=== PATIENT | male | born 1965 | race Caucasian/White ===

== ENCOUNTER 2016-11-20 08:27 | Emergency (ER) | payer BC ==
[~2016-11-20] VITALS: Ht 175.3 cm; Wt 106.6 kg
[~2016-11-20 08:27] MED LIST: HYDR-757 PO
[2016-11-20] MEDS ORDERED: TRAM50TA2 (08:44)
[2016-11-20] MEDS ORDERED: PREG75CA (08:44)
[2016-11-20] MEDS ORDERED: LIRA0.6P3 (08:44)
[2016-11-20] MEDS ORDERED: ATOR40TA70 (08:44)
[2016-11-20 09:03] LABS: BASOPHILS # (AUTO) 0.1 10^3/uL (0.0-0.1); BASOPHILS % (AUTO) 1 % (0-10); EOSINOPHILS # (AUTO) 0.3 10^3/uL (0.0-0.3); EOSINOPHILS % (AUTO) 2 % (0-10); LYMPHOCYTES # (AUTO) 3.1 X 10^3 (1.0-4.0); LYMPHOCYTES % (AUTO) 27 % (12-44); MEAN CORPUSCULAR HEMOGLOBIN 30 PG (25-34); MEAN CORPUSCULAR HGB CONC 35 G/DL (32-36); MEAN CORPUSCULAR VOLUME 88 FL (80-99); MEAN PLATELET VOLUME 10.4 FL (7.4-10.4); MONOCYTES # (AUTO) 0.8 X 10^3 (0.0-1.0); MONOCYTES % (AUTO) 7 % (0-12); NEUTROPHILS # (AUTO) 7.4 X 10^3 (1.8-7.8); NEUTROPHILS % (AUTO) 64 % (42-75); PLATELET COUNT 278 10^3/uL (130-400); RED BLOOD COUNT 4.56 10^6/uL (4.35-5.85); RED CELL DISTRIBUTION WIDTH 11.9 % (10.0-14.5); WHITE BLOOD COUNT 11.6 10^3/uL (4.3-11.0)
[2016-11-20 09:04] LABS: BILIRUBIN,URINE NEGATIVE (NEGATIVE); KETONES,URINE NEGATIVE (NEGATIVE); LEUKOCYTE ESTERASE ,URINE NEGATIVE (NEGATIVE); NITRITE,URINE NEGATIVE (NEGATIVE); PH,URINE 5 (5-9); PROTEIN,URINE 2+ (NEGATIVE); UROBILINOGEN,URINE NORMAL (NORMAL)
[2016-11-20 09:21] LABS: ALANINE AMINOTRANSFERASE 22 U/L (0-55); ALBUMIN 3.8 G/DL (3.2-4.5); ANION GAP 11 MMOL/L (5-14); ASPARTATE AMINO TRANSFERASE 13 U/L (5-34); BILIRUBIN,TOTAL 0.3 MG/DL (0.1-1.0); BLOOD UREA NITROGEN 13 MG/DL (7-18); BUN/CREATININE RATIO 16; CALCIUM 9.2 MG/DL (8.5-10.1); CARBON DIOXIDE 23 MMOL/L (21-32); CHLORIDE 100 MMOL/L (98-107); CREATININE SERUM 0.82 MG/DL (0.60-1.30); GFR ESTIMATED > 60; GLUCOSE 233 MG/DL (70-105); POTASSIUM 4.4 MMOL/L (3.6-5.0); SODIUM 134 MMOL/L (135-145); TOTAL PROTEIN 6.9 G/DL (6.4-8.2)
--- NOTE | 2016-11-20 10:22 | Diagnostic Imaging Report ---
INDICATION: Abdominal pain. KUB obtained at 10:22 a.m. The abdominal bowel gas pattern is unremarkable. There is no sign of obstruction or ileus. There are multiple pelvic calcifications which may be phleboliths although stones are difficult to exclude. There is intramedullary mio and screw in the right hip with osteophyte formation of the adjacent iliac bone. IMPRESSION: Unremarkable bowel gas pattern. No sign of obstruction or ileus. There are multiple pelvic calcifications which could be phleboliths or stones. Dictated by: Dictated on workstation # [id number]
--- NOTE | 2016-11-20 10:54 | ED General ---
General Chief Complaint: General Problems/Pain Stated Complaint: PELVIC PAIN Nursing Triage Note: AMBULATED TO ROOM 06 WITH COMPLAINTS OF RIGHT LOWER BACK PAIN THAT RADIATES TO RLQ FOR 6 MONTHS. STATES HE HAS A DISPLACED JOSE IN HIP AND LEG AREA THAT IS NON SURGICAL. PT HAS TRAMADOL BUT DID NOT TAKE IT TODAY. Nursing Sepsis Screen: No Definite Risk Source of Information: Patient Exam Limitations: No Limitations History of Present Illness Time Seen by Provider: 09:25 Initial Comments The patient is a 51-year-old white male who complains of right hip, low back, and now radiating across the pelvic area. This is been present for perhaps as long as 6 months. He takes tramadol for this although he did not do so today. He was here in September and had a CT scan which was negative. His hip pain is of long standing. He reports that he had a femur fracture with an intra- medullary jose. The trochanteric component for fixation has apparently slipped. He has been told that this is not remediable. Allergies and Home Medications Allergies Uncoded Allergies: THC (Allergy, Unknown, 11/20/16) Home Medications Atorvastatin Calcium 40 Mg Tablet #90 (Reported) Liraglutide 0.6 Mg/0.1 Ml Pen.injctr #9 (Reported) Pregabalin 75 Mg Capsule #120 (Reported) Tramadol HCl 50 Mg Tablet #112 (Reported) Constitutional: see HPI EENTM: no symptoms reported Respiratory: no symptoms reported Cardiovascular: no symptoms reported Gastrointestinal: constipation Genitourinary: no symptoms reported Musculoskeletal: see HPI Skin: no symptoms reported Psychiatric/Neurological: No Symptoms Reported Hematologic/Lymphatic: No Symptoms Reported Immunological/Allergic: no symptoms reported Past Xrsxzls-Awrncb-Umdwjz Hx Patient Social History Alcohol Use: Occasionally Uses Recreational Drug Use: No Smoking Status: Current Everyday Smoker Recent Foreign Travel: No Contact w/Someone Who Travel: No Recent Infectious Disease Expo: No Recent Hopitalizations: No Physical Abuse Screen: No Sexual Abuse: No Immunizations Up To Date Tetanus Booster (TDap): Less than 5yrs Surgeries HX Surgeries: Yes Surgeries: Orthopedic Respiratory Hx Respiratory Disorders: No Cardiovascular Hx Cardiac Disorders: Yes Cardiac Disorders: High Cholesterol Neurological Hx Neurological Disorders: No Genitourinary Hx Genitourinary Disorders: No Gastrointestinal Hx Gastrointestinal Disorders: No Musculoskeletal Hx Musculoskeletal Disorders: Yes Musculoskeletal Disorders: Chronic Back Pain Endocrine Hx Endocrine Disorders: Yes Endocrine Disorders: Diabetes, Non-Insulin dep HEENT HX ENT Disorders: No Cancer Hx Cancer: No Psychosocial Hx Psychiatric Problems: No Physical Exam Vital Signs Vital Sign - Last 12Hours 11/20/16 08:30 Temp 98.0 Pulse 90 Resp 18 B/P 161/90 Pulse Ox 97 Capillary Refill : Less Than 3 Seconds General Appearance: No Apparent Distress WD/WN Eyes: Bilateral Eye Normal Inspection HEENT: Normal ENT Inspection Neck: Full Range of Motion Normal Inspection Non Tender Supple Carotid Bruit Respiratory: Chest Non Tender Lungs Clear Normal Breath Sounds No Accessory Muscle Use No Respiratory Distress Cardiovascular: Regular Rate, Rhythm No Edema No Gallop No JVD No Murmur Normal Peripheral Pulses Gastrointestinal: Normal Bowel Sounds No Organomegaly No Pulsatile Mass Non Tender Soft Back: Normal Inspection No CVA Tenderness No Vertebral Tenderness Neurologic/Psychiatric: Alert Oriented x3 No Motor/Sensory Deficits Normal Mood/Affect Skin: Normal Color Warm/Dry Lymphatic: No Adenopathy Progress/Results/Core Measures Results/Orders Lab Results Laboratory Tests Test 11/20/16 08:50 11/20/16 08:55 Range/Units Alanine Aminotransferase (ALT/SGPT) 22 0-55 U/L Albumin 3.8 3.2-4.5 G/DL Alkaline Phosphatase 89 40-136 U/L Anion Gap 11 5-14 MMOL/L Aspartate Amino Transf (AST/SGOT) 13 5-34 U/L BUN/Creatinine Ratio 16 Basophils # (Auto) 0.1 0.0-0.1 10^3/uL Basophils (%) (Auto) 1 0-10 % Blood Urea Nitrogen 13 7-18 MG/DL Calcium Level 9.2 8.5-10.1 MG/DL Carbon Dioxide Level 23 21-32 MMOL/L Chloride Level 100 98-107 MMOL/L Creatinine 0.82 0.60-1.30 MG/DL Eosinophils # (Auto) 0.3 0.0-0.3 10^3/uL Eosinophils (%) (Auto) 2 0-10 % Estimat Glomerular Filtration Rate > 60 Glucose Level 233 H 70-105 MG/DL Hematocrit 40 40-54 % Hemoglobin 13.8 13.3-17.7 G/DL Lymphocytes # (Auto) 3.1 1.0-4.0 X 10^3 Lymphocytes (%) (Auto) 27 12-44 % Mean Corpuscular Hemoglobin 30 25-34 PG Mean Corpuscular Hemoglobin Concent 35 32-36 G/DL Mean Corpuscular Volume 88 80-99 FL Mean Platelet Volume 10.4 7.4-10.4 FL Monocytes # (Auto) 0.8 0.0-1.0 X 10^3 Monocytes (%) (Auto) 7 0-12 % Neutrophils # (Auto) 7.4 1.8-7.8 X 10^3 Neutrophils (%) (Auto) 64 42-75 % Platelet Count 278 130-400 10^3/uL Potassium Level 4.4 3.6-5.0 MMOL/L Red Blood Count 4.56 4.35-5.85 10^6/uL Red Cell Distribution Width 11.9 10.0-14.5 % Sodium Level 134 L 135-145 MMOL/L Total Bilirubin 0.3 0.1-1.0 MG/DL Total Protein 6.9 6.4-8.2 G/DL White Blood Count 11.6 H 4.3-11.0 10^3/uL Urine Bacteria NEGATIVE /HPF Urine Bilirubin NEGATIVE NEGATIVE Urine Casts NONE /LPF Urine Clarity CLEAR Urine Color YELLOW Urine Crystals NONE /LPF Urine Culture Indicated NO Urine Glucose (UA) 4+ H NEGATIVE Urine Ketones NEGATIVE NEGATIVE Urine Leukocyte Esterase NEGATIVE NEGATIVE Urine Mucus NEGATIVE /LPF Urine Nitrite NEGATIVE NEGATIVE Urine Protein 2+ H NEGATIVE Urine RBC NONE /HPF Urine RBC (Auto) NEGATIVE NEGATIVE Urine Specific [place] 1.015 L 1.016-1.022 Urine Squamous Epithelial Cells NONE /HPF Urine Urobilinogen NORMAL NORMAL MG/DL Urine WBC NONE /HPF Urine pH 5 5-9 My Orders Orders-RACIEL EDGAR MD Cbc With Automated Diff (11/20/16 08:40) Comprehensive Metabolic Panel (11/20/16 08:40) Ua Culture If Indicated (11/20/16 08:40) Abdomen/Kub 1view (11/20/16 09:59) Vital Signs/I&O Vital Sign - Last 12Hours 11/20/16 08:30 Temp 98.0 Pulse 90 Resp 18 B/P 161/90 Pulse Ox 97 Blood Pressure Mean: 113 Departure Impression Impression: Primary Impression: Right groin pain Disposition: 01 HOME, SELF-CARE Condition: Stable/Unchanged Departure-Patient Inst. Decision time for Depature: 11:11 Referrals: [facility] (PCP/Family) Primary Care Physician Patient Instructions: CHRONIC PAIN Add. Discharge Instructions: All discharge instructions reviewed with patient and/or family. Voiced understanding. Continue tramadol as prescribed MiraLAX 17 g daily or every other day for bowel movements See your provider to consider alternatives including the possibility of an outpatient pain consult. RACIEL EDGAR MD Nov 20, 2016 10:54
[2016-11-20 11:19] VITALS: BP 154/89
== END 2016-11-20 11:19 | disposition home or self-care (01) ==
LOC: EDUNIT# 08:27 → ER 08:29
DX: R10.31 Right lower quadrant pain (principal); M25.551 Pain in right hip; G89.29 Other chronic pain; E11.9 Type 2 diabetes mellitus without complications; F17.210 Nicotine dependence, cigarettes, uncomplicated; Z79.84 Long term (current) use of oral hypoglycemic drugs
CPT/HCPCS: 36415; 74000; 80053; 81000; 85025

== ENCOUNTER 2018-11-21 16:14 | Emergency (ER) | payer BC ==
[~2018-11-21] VITALS: Ht 177.8 cm; Wt 104.3 kg
[~2018-11-21 16:14] MED LIST changes: +ATOR40TA70; +HYDR-4226 PO; -HYDR-757 PO; +LIRA0.6P3; +PREG75CA; +TRAM50TA2
--- NOTE | 2018-11-21 17:21 | ED Integumentary General ---
General Chief Complaint: Skin/Wound Problems Stated Complaint: DIABETIC/R LEG INFECTION Nursing Triage Note: Ambulatory to rm 5. Pt c/o wound and redness to R knee. Pt reports tripped in a flower bed and falling on knee, and then crawling under a house four days ago. Pt reports the next morning the knee was red and sore. Pt c/o lymph node swelling in the L groin. Pt's R knee has a scab and redness to the surrounding area. Pt reports pain when walking on leg. Source: patient Exam Limitations: no limitations History of Present Illness Date Seen by Provider: Nov 21, 2018 Time Seen by Provider: 17:19 Initial Comments To ER with reports of a four-day history of a wound to the right anterior knee. He states that he fell into a flower bed landing on the knee. He was then crawling around beneath the house 4 days ago. The next morning he awakened with redness and swelling to the knee. He denies fevers or chills. He is diabetic state that he is very bad about checking his blood sugars. Timing/Duration: constant Severity: moderate Location: extremities Allergies and Home Medications Allergies Uncoded Allergies: THC (Allergy, Unknown, 11/20/16) Patient Home Medication List Home Medication List Reviewed: Yes Review of Systems Review of Systems Constitutional: see HPI EENTM: see HPI Respiratory: no symptoms reported Cardiovascular: no symptoms reported Genitourinary: no symptoms reported Musculoskeletal: no symptoms reported Skin: see HPI Psychiatric/Neurological: No Symptoms Reported Endocrine: No Symptoms Reported Hematologic/Lymphatic: No Symptoms Reported Past Yswyvuk-Bfjedj-Rwnfhd Hx Patient Social History Alcohol Use: Occasionally Uses Number of Drinks Today: AA Alcohol Beverage of Choice: Beer Recreational Drug Use: No Smoking Status: Current Someday Smoker Type Used: Cigarettes Recent Foreign Travel: No Contact w/Someone Who Travel: No Recent Infectious Disease Expo: No Recent Hopitalizations: No Physical Abuse: No Sexual Abuse: No Immunizations Up To Date Tetanus Booster (TDap): Less than 5yrs Past Medical History Surgeries: Yes Orthopedic Respiratory: No Cardiac: Yes High Cholesterol Neurological: No Gastrointestinal: No Musculoskeletal: Yes Chronic Back Pain Endocrine: Yes Diabetes, Non-Insulin dep Cancer: No Psychosocial: No Physical Exam Vital Signs Vital Signs - First Documented 11/21/18 16:40 Temp 97.8 Pulse 86 Resp 15 B/P (MAP) 133/113 (120) Pulse Ox 98 O2 Delivery Room Air Capillary Refill : Less Than 3 Seconds General Appearance: WD/WN, no apparent distress HEENT: PERRL/EOMI, normal ENT inspection Neck: non-tender Respiratory: no respiratory distress, no accessory muscle use Neurologic/Psychiatric: alert, normal mood/affect, oriented x 3 Skin: normal color, warm/dry, other (7 cm of erythema to the right anterior knee with a small pustule in the center. This was unroofed with a blunt needle, culture collected and sent to lab. No lymphangitis. There is some very tender, palpable right inguinal lymphadenopathy.) Progress/Results/Core Measures Results/Orders Lab Results Laboratory Tests Test 11/21/18 16:50 11/21/18 18:44 11/21/18 19:44 Range/Units White Blood Count 14.7 H 4.3-11.0 10^3/uL Red Blood Count 4.98 4.35-5.85 10^6/uL Hemoglobin 14.4 13.3-17.7 G/DL Hematocrit 42 40-54 % Mean Corpuscular Volume 84 80-99 FL Mean Corpuscular Hemoglobin 29 25-34 PG Mean Corpuscular Hemoglobin Concent 34 32-36 G/DL Red Cell Distribution Width 11.9 10.0-14.5 % Platelet Count 348 130-400 10^3/uL Mean Platelet Volume 10.8 H 7.4-10.4 FL Neutrophils (%) (Auto) 82 H 42-75 % Lymphocytes (%) (Auto) 12 12-44 % Monocytes (%) (Auto) 6 0-12 % Eosinophils (%) (Auto) 1 0-10 % Basophils (%) (Auto) 0 0-10 % Neutrophils # (Auto) 12.0 H 1.8-7.8 X 10^3 Lymphocytes # (Auto) 1.7 1.0-4.0 X 10^3 Monocytes # (Auto) 0.9 0.0-1.0 X 10^3 Eosinophils # (Auto) 0.1 0.0-0.3 10^3/uL Basophils # (Auto) 0.1 0.0-0.1 10^3/uL Neutrophils % (Manual) 82 % Lymphocytes % (Manual) 8 % Monocytes % (Manual) 7 % Basophils % (Manual) 3 % Blood Morphology Comment NORMAL Sodium Level 127 L 135-145 MMOL/L Potassium Level 4.7 3.6-5.0 MMOL/L Chloride Level 92 L 98-107 MMOL/L Carbon Dioxide Level 22 21-32 MMOL/L Anion Gap 13 5-14 MMOL/L Blood Urea Nitrogen 15 7-18 MG/DL Creatinine 1.12 0.60-1.30 MG/DL Estimat Glomerular Filtration Rate > 60 BUN/Creatinine Ratio 13 Glucose Level 682 *H 70-105 MG/DL Calcium Level 9.8 8.5-10.1 MG/DL Corrected Calcium 9.9 8.5-10.1 MG/DL Total Bilirubin 0.3 0.1-1.0 MG/DL Aspartate Amino Transf (AST/SGOT) 10 5-34 U/L Alanine Aminotransferase (ALT/SGPT) 14 0-55 U/L Alkaline Phosphatase 140 H 40-136 U/L Total Protein 7.8 6.4-8.2 GM/DL Albumin 3.9 3.2-4.5 GM/DL Glucometer 489 *H 340 H 70-110 MG/DL My Orders Orders - TROY FORREST APRN Cbc With Automated Diff (11/21/18 17:17) Comprehensive Metabolic Panel (11/21/18 17:17) Iv Heplock-Insert (Order) (11/21/18 17:17) Wound Culture (11/21/18 17:17) Ketorolac Injection (Toradol Injection) (11/21/18 17:30) Ceftriaxone For Iv Use (Rocephin For I (11/21/18 17:30) Sulfamethoxazole/Trimet Ds Tab (Bactrim (11/21/18 17:30) Lactated Ringers (Lr 1000 Ml Iv Solution (11/21/18 17:30) Manual Differential (11/21/18 16:50) Ns Iv 1000 Ml (Sodium Chloride 0.9%) (11/21/18 17:45) Insulin (Regular) Human (Humulin R (Per (11/21/18 17:45) Insulin Determir (Per Unit) (Levemir (Pe (11/21/18 18:00) Accucheck Stat ONCE (11/21/18 18:35) Ns Iv 1000 Ml (Sodium Chloride 0.9%) (11/21/18 19:00) Insulin (Regular) Human (Humulin R (Per (11/21/18 21:00) Accucheck Stat ONCE (11/21/18 19:33) Accucheck Stat ONCE (11/21/18 20:15) Medications Given in ED Current Medications Medications Dose Ordered Sig/Claudia Route Start Time Stop Time Status Last Admin Dose Admin Ceftriaxone Sodium 1000 mg/ Sodium Chloride 50 ml @ 100 mls/hr ONCE ONCE IV 11/21/18 17:30 11/21/18 17:59 DC 11/21/18 17:46 100 MLS/HR Insulin Detemir 10 unit ONCE ONCE SQ 11/21/18 18:00 11/21/18 18:01 DC 11/21/18 18:00 10 UNIT Insulin Human Regular 10 unit ONCE ONCE IV 11/21/18 17:45 11/21/18 17:46 DC 11/21/18 18:00 10 UNIT Ketorolac Tromethamine 30 mg ONCE ONCE IVP 11/21/18 17:30 11/21/18 17:31 DC 11/21/18 17:47 30 MG Trimethoprim/ Sulfamethoxazole 2 ea ONCE ONCE PO 11/21/18 17:30 11/21/18 17:31 DC 11/21/18 17:47 2 EA Vital Signs/I&O 11/21/18 16:40 Temp 97.8 Pulse 86 Resp 15 B/P (MAP) 133/113 (120) Pulse Ox 98 O2 Delivery Room Air Blood Pressure Mean: 120 Departure Impression Primary Impression: Cellulitis Qualified Codes: L03.115 - Cellulitis of right lower limb Additional Impression: Hyperglycemia Disposition: 01 HOME, SELF-CARE Condition: Stable Departure-Patient Inst. Decision time for Depature: 20:31 Referrals: [facility]/ (PCP) Primary Care Physician LUIS ALBERTO MARIE (Family) Primary Care Physician Patient Instructions: Cellulitis (Skin Infection), Adult (DC) Add. Discharge Instructions: 1. Take antibiotics as directed starting tomorrow. Return to ER for any concerns. Is very important that you keep better control of your blood sugars checking them at least 3 times a day. Call your regular doctor tomorrow for follow-up appointment this week. All discharge instructions reviewed with patient and/or family. Voiced understanding. Scripts Cephalexin (Keflex) 500 Mg Capsule 500 MG PO TID, #21 CAP Prov: TROY FORREST APRN 11/21/18 Sulfamethoxazole/Trimethoprim (Bactrim Ds Tablet) 1 Each Tablet 1 EACH PO BID, #14 TAB Prov: TROY FORREST APRN 11/21/18 TROY FORREST APRN Nov 21, 2018 17:21
[2018-11-21 17:25] LABS: BASOPHILS # (AUTO) 0.1 10^3/uL (0.0-0.1); BASOPHILS % (AUTO) 0 % (0-10); EOSINOPHILS # (AUTO) 0.1 10^3/uL (0.0-0.3); EOSINOPHILS % (AUTO) 1 % (0-10); HEMATOCRIT 42 % (40-54); HEMOGLOBIN 14.4 G/DL (13.3-17.7); LYMPHOCYTES # (AUTO) 1.7 X 10^3 (1.0-4.0); LYMPHOCYTES % (AUTO) 12 % (12-44); MEAN CORPUSCULAR HEMOGLOBIN 29 PG (25-34); MEAN CORPUSCULAR HGB CONC 34 G/DL (32-36); MEAN CORPUSCULAR VOLUME 84 FL (80-99); MEAN PLATELET VOLUME 10.8 FL (7.4-10.4); MONOCYTES # (AUTO) 0.9 X 10^3 (0.0-1.0); MONOCYTES % (AUTO) 6 % (0-12); NEUTROPHILS % (AUTO) 82 % (42-75); PLATELET COUNT 348 10^3/uL (130-400); RED BLOOD COUNT 4.98 10^6/uL (4.35-5.85); RED CELL DISTRIBUTION WIDTH 11.9 % (10.0-14.5); WHITE BLOOD COUNT 14.7 10^3/uL (4.3-11.0)
[2018-11-21] MEDS ORDERED: KETOROLAC 30 MG/ML VIAL IVP ONE (17:30)
[2018-11-21] MEDS ORDERED: TRIM/SULFAMETH 160/800 (SEPTRA DS) TAB PO ONE (17:30)
[2018-11-21] MEDS ORDERED: LACTATED RINGERS 1,000 ML IV SCH (17:30)
[2018-11-21] MEDS ORDERED: cefTRIAXone FOR IV USE 1,000 MG in NS (IVPB) 50 ML IV ONE (17:30)
[2018-11-21 17:36] LABS: ALANINE AMINOTRANSFERASE 14 U/L (0-55); ALBUMIN 3.9 GM/DL (3.2-4.5); ALKALINE PHOSPHATASE 140 U/L (40-136); BILIRUBIN,TOTAL 0.3 MG/DL (0.1-1.0); BUN/CREATININE RATIO 13; CALCIUM 9.8 MG/DL (8.5-10.1); CARBON DIOXIDE 22 MMOL/L (21-32); CHLORIDE 92 MMOL/L (98-107); CREATININE SERUM 1.12 MG/DL (0.60-1.30); GFR ESTIMATED > 60; POTASSIUM 4.7 MMOL/L (3.6-5.0); SODIUM 127 MMOL/L (135-145); TOTAL PROTEIN 7.8 GM/DL (6.4-8.2)
[2018-11-21 17:39] LABS: GLUCOSE 682 MG/DL (70-105)
[2018-11-21] MEDS ORDERED: inSUlin (REGULAR) HUMAN 1 UNIT/0.01 ML (CHARGE PER UNIT) IV ONE (17:45)
[2018-11-21] MEDS ORDERED: NS IV 1000 ML 1,000 ML IV SCH ×2 (17:45→19:00)
[2018-11-21 17:46] LABS: BASOPHILS % (MANUAL) 3 %; LYMPHOCYTES % (MANUAL) 8 %; MONOCYTES % (MANUAL) 7 %; NEUTROPHILS % (MANUAL) 82 %
[2018-11-21 17:47] LABS: RBC MORPH NORMAL
[2018-11-21] MEDS ORDERED: inSUlin DETERMIR 1 UNIT/0.01 ML (LEVEMIR) CHARGE PER UNIT SQ ONE (18:00)
[2018-11-21] MEDS ORDERED: CEPH-507 PO (20:33)
[2018-11-21] MEDS ORDERED: SULF1TAB35 PO (20:33)
[2018-11-21 20:38] VITALS: BP 152/86
[2018-11-21] MEDS ORDERED: inSUlin (REGULAR) HUMAN 1 UNIT/0.01 ML (CHARGE PER UNIT) IV SCH (21:00)
== END 2018-11-21 20:38 | disposition home or self-care (01) ==
LOC: EDUNIT# 16:14 → ER 16:15
DX: L03.115 Cellulitis of right lower limb (principal); E11.65 Type 2 diabetes mellitus with hyperglycemia; F12.10 Cannabis abuse, uncomplicated; F17.210 Nicotine dependence, cigarettes, uncomplicated; E78.00 Pure hypercholesterolemia, unspecified; Z98.890 Other specified postprocedural states
CPT/HCPCS: 36415; 80053; 82962; 85007; 85027; 87070; 87077; 87186; 87205

== ENCOUNTER 2020-04-07 22:41 | Emergency (ER) | payer SELFPAY ==
[~2020-04-07] VITALS: Ht 175 cm; Wt 81.0 kg
[~2020-04-07 22:41] MED LIST changes: +CEPH-507 PO; +SULF1TAB35 PO; -TRAM50TA2; +TRM50T
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
--- OUTSIDE RECORDS SUMMARY | 2020-04-07 22:48 | XMS REPORT ---
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 45761402109437706 Problem Type 2 diabetes mellitus wit h complication, without long-term current use of insulin E11.8 Active 51401860 Problem Neuropathy G62.9 Active 783427118 Problem Hypertriglyceridemia E78.1 Active 088430774 Problem Right hip pain M25.551 Active 45858 [id number] ALLERGIES No Information ENCOUNTERS Encounter Location Date Diagnosis [place] [address] [place] [id number] [address] [place] [address] Dec, Right hip pain M25.551 [facility] [address] [facility] [id number] [address] [place] [address] Nov, [facility] [address] [facility] [id number] [address] [place] [address] Nov, Right hip pain M25.551 [facility] [address] [place] [id number] [address] [place] [address] Oct, Right hip pain M25.551 [facility] [address] [id number] [address] [place] [address] Sep, Right hip pain M25.551 and N europathy G62.9 [facility] [address] [facility] [id number] [address] [place] [address] Aug, Right hip pain M25.551 [facility] [address] [facility] [id number] [address] [place] [address] 24 Jul, 2018 Right hip pain M25.551 [facility] [address] [id number] [address] [place] [address] Jul, Type 2 diabetes mellitus wit h complication, without long-term current use of insulin E11.8 ; Right hip pain M25.551 and Neuropathy G62.9 [facility] [address] [id number] [address] [place] [address] Jun, Right hip pain M25.551 [facility] [address] [id number] [address] [place] [address] May, Right hip pain M25.551 [facility] [address] [id number] [address] [place] [address] May, [facility] [address] [id number] [address] [place] [address] May, Hypertriglyceridemia E78.1 [facility] [address] [id number] [address] [place] [address] Apr, Right hip pain M25.551 [facility] [address] [id number] [address] [place] [address] Apr, Right hip pain M25.551 and N europathy G62.9 [facility] [address] [id number] [address] [place] [address] March, Right hip pain M25.551 and N europathy G62.9 [facility] [address] [id number] [address] [place] [address] Feb, Seasonal allergic rhinitis, unspecified trigger J30.2 [facility] [address] [id number] [address] [place] [address] Feb, Neuropathy G62.9 [facility] [address] [facility] [id number] [address] [place] [address] Feb, Right hip pain M25.551 and N europathy G62.9 [facility] [address] [id number] [address] [place] [address] Feb, Hypertriglyceridemia E78.1 [facility] [address] [id number] [address] [place] [address] Jan, Right hip pain M25.551 and T ype 2 diabetes mellitus with complication, without long-term current use of insulin E11.8 [place] [address] [id number] [address] [place] [address] Jan, Neuropathy G62.9 [facility] [address] [id number] [address] [place] [address] Jan, Right hip pain M25.551 [place] [address] [facility] [id number] [address] [place] [address] Dec, Right hip pain M25.551 [place] [address] [id number] [address] [place] [address] Nov, Right hip pain M25.551 [facility] [address] [id number] [address] [place] [address] Oct, Right hip pain M25.551 [place] [address] [facility] [id number] [address] [place] [address] Sep, Right hip pain M25.551 [facility] [address] [facility] [id number] [address] [place] [address] Aug, Right hip pain M25.551 [facility] [address] [facility] [id number] [address] [place] [address] Aug, Type 2 diabetes mellitus wit h complication, without long-term current use of insulin E11.8 and Other chronic pain G89.29 [facility] [address] [id number] [address] [place] [address] Jul, Right hip pain M25.551 [facility] [address] [facility] [id number] [address] [place] [address] Jul, Right hip pain M25.551 [place] [address] [id number] [address] [place] [address] Jul, Right hip pain M25.551 and N europathy G62.9 [place] [address] [facility] [id number] [address] [place] [address] Jun, Right hip pain M25.551 [place] [address] [facility] [id number] [address] [place] [address] May, [place] [address] [facility] [id number] [address] [place] [address] May, Type 2 diabetes mellitus wit h complication, without long-term current use of insulin E11.8 and Right hip pain M25.551 [place] [address] [facility] [id number] [address] [place] [address] Apr, Type 2 diabetes mellitus wit h complication, without long-term current use of insulin E11.8 [place] [address] [facility] [id number] [address] [place] [address] Apr, Type 2 diabetes mellitus wit h complication, without long-term current use of insulin E11.8 ; Right hip pain M25.551 ; Neuropathy G62.9 and Hypertriglyceridemia E78.1 [place] [address] [place] [id number] [address] [place] [address] March, Right hip pain M25.551 and N europathy G62.9 [place] [address] [facility] [id number] [address] [place] [address] March, Right hip pain M25.551 and N europathy G62.9 [place] [address] [facility] [id number] [address] [place] [address] Feb, Right hip pain M25.551 [place] [address] [facility] [id number] [address] [place] [address] Jan, Hypertriglyceridemia E78.1 [place] [address] [place] [id number] [address] [place] [address] Jan, Right hip pain M25.551 [facility] [address] [id number] [address] [place] [address] Jan, Hypertriglyceridemia E78.1 ; Dysuria R30.0 ; RLQ abdominal pain R10.31 and Right hip pain M25.551 [facility] [address] [facility] [id number] [address] [place] [address] Dec, Right hip pain M25.551 [facility] [address] [id number] [address] [place] [address] Dec, Type 2 diabetes mellitus wit h complication, without long-term current use of insulin E11.8 ; Right hip pain M25.551 and Neuropathy G62.9 [place] [address] [place] [id number] [address] [place] [address] Nov, Right hip pain M25.551 [place] [address] [facility] [id number] [address] [place] [address] Nov, [facility] [address] [facility] [id number] [address] [place] [address] Oct, Right hip pain M25.551 [facility] [address] [facility] [id number] [address] [place] [address] Sep, [facility] [address] [facility] [id number] [address] [place] [address] Sep, Type 2 diabetes mellitus wit h complication, without long-term current use of insulin E11.8 and Right hip pain M25.551 [facility] [address] [facility] [id number] [address] [place] [address] Sep, Neuropathy G62.9 [facility] [address] [facility] [id number] [address] [place] [address] Sep, Hypertriglyceridemia E78.1 [place] [address] [facility] [id number] [address] [place] [address] Aug, Type 2 diabetes mellitus wit h complication, without long-term current use of insulin E11.8 [facility] [address] [id number] [address] [place] [address] Aug, Type 2 diabetes mellitus wit h complication, without long-term current use of insulin E11.8 ; Right hip pain M25.551 ; Neuropathy G62.9 ; Pain of left foot M79.672 and Pain in right foot M79.671 [facility] [address] [id number] [address] [place] [address] Aug, Type 2 diabetes mellitus wit h complication, without long-term current use of insulin E11.8 ; Neuropathy G62.9 ; Right hip pain M25.551 ; Pain of left foot M79.672 and Pain in right foot M79.671 [facility] [address] [id number] [address] [place] [address] Feb, [facility] [address] [id number] [address] [place] [address] Feb, [facility] [address] [id number] [address] [place] [address] March, [facility] [address] [id number] [address] [place] [address] Feb, [facility] [address] [id number] [address] [place] [address] Oct, [facility] [address] [id number] [address] [place] [address] Oct, [facility] [address] [id number] [address] [place] [address] Nov, [facility] [address] [id number] [address] [place] [address] Oct, [facility] [address] [id number] [address] [place] [address] Oct, [facility] [address] [id number] [address] [place] [address] Oct, [facility] [address] [facility] [id number] [address] [address] Oct, IMMUNIZATIONS No Known Immunizations SOCIAL HISTORY Never Assessed REASON FOR VISIT EMR-[facility] [place] PLAN OF CARE VITAL SIGNS MEDICATIONS Unknown [...]
--- OUTSIDE RECORDS SUMMARY | 2020-04-07 22:48 | XMS REPORT ---
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 88694851333301538 Problem Other chronic pain G89.29 Active 8 2832788 Problem Neuropathy G62.9 Active 720994293 Problem Type 2 diabetes mellitus wit h complication, without long-term current use of insulin E11.8 Active 74097936 Problem Right hip pain M25.551 Active 12093 [id number] Problem Hypertriglyceridemia E78.1 Active 147524540 ALLERGIES No Information ENCOUNTERS Encounter Location Date Diagnosis [place] [address] [id number] [place] [address] Jul, Type 2 diabetes mellitus wit h complication, without long-term current use of insulin E11.8 ; Right hip pain M25.551 and Neuropathy G62.9 [place] [address] [address] [facility] [id number] [address] [place] [address] Jun, Right hip pain M25.551 [facility] [address] [facility] [id number] [address] [place] [address] May, Right hip pain M25.551 [facility] [address] [facility] [id number] [address] [place] [address] May, [facility] [address] [facility] [id number] [address] [place] [phone] May, Hypertriglyceridemia E78.1 [facility] [address] [facility] [id number] [address] [place] [phone] Apr, Right hip pain M25.551 [facility] [address] [id number] [address] [place] [address] Apr, Right hip pain M25.551 and N europathy G62.9 [facility] [address] [id number] [address] [place] [address] March, Right hip pain M25.551 and N europathy G62.9 [facility] [address] [id number] [address] [place] [phone] Feb, Seasonal allergic rhinitis, unspecified trigger J30.2 [facility] [address] [facility] [id number] [address] [place] [phone] Feb, Neuropathy G62.9 [facility] [address] [facility] [id number] [address] [place] [phone] Feb, Right hip pain M25.551 and N europathy G62.9 [facility] [address] [facility] [id number] [address] [place] [address] Feb, Hypertriglyceridemia E78.1 [place] [address] [facility] [id number] [address] [place] [address] Jan, Right hip pain M25.551 and T ype 2 diabetes mellitus with complication, without long-term current use of insulin E11.8 [place] [address] [facility] [id number] [address] [place] [address] Jan, Neuropathy G62.9 [facility] [address] [facility] [id number] [address] [place] [address] Jan, Right hip pain M25.551 [facility] [address] [facility] [id number] [address] [place] [address] Dec, Right hip pain M25.551 [facility] [address] [facility] [id number] [address] [place] [address] Nov, Right hip pain M25.551 [facility] [address] [id number] [address] [place] [address] Oct, Right hip pain M25.551 [facility] [address] [id number] [address] [place] [address] Sep, Right hip pain M25.551 [facility] [address] [id number] [address] [place] [address] Aug, Right hip pain M25.551 [facility] [address] [id number] [address] [place] [phone] Aug, Type 2 diabetes mellitus wit h complication, without long-term current use of insulin E11.8 and Other chronic pain G89.29 [place] [address] [id number] [address] [place] [address] Jul, Right hip pain M25.551 [place] [address] [id number] [address] [place] [address] Jul, Right hip pain M25.551 [place] [address] [id number] [address] [place] [address] Jul, Right hip pain M25.551 and N europathy G62.9 [place] [address] [id number] [address] [place] [address] Jun, Right hip pain M25.551 [place] [address] [id number] [address] [place] [address] May, [place] [address] [id number] [address] [place] [address] May, Type 2 diabetes mellitus wit h complication, without long-term current use of insulin E11.8 and Right hip pain M25.551 [facility] [address] [id number] [address] [place] [address] Apr, Type 2 diabetes mellitus wit h complication, without long-term current use of insulin E11.8 [place] [address] [id number] [address] [place] [phone] 14 Apr, 2017 Type 2 diabetes mellitus wit h complication, without long-term current use of insulin E11.8 ; Right hip pain M25.551 ; Neuropathy G62.9 and Hypertriglyceridemia E78.1 [facility] [address] [id number] [address] [place] [address] March, Right hip pain M25.551 and N europathy G62.9 [place] [address] [id number] [address] [place] [address] March, Right hip pain M25.551 and N europathy G62.9 [place] [address] [id number] [address] [place] [address] Feb, Right hip pain M25.551 [place] [address] [facility] [id number] [address] [place] [address] Jan, Hypertriglyceridemia E78.1 [place] [address] [facility] [id number] [address] [place] [address] Jan, Right hip pain M25.551 [place] [address] [facility] [id number] [address] [place] [address] Jan, Hypertriglyceridemia E78.1 ; Dysuria R30.0 ; RLQ abdominal pain R10.31 and Right hip pain M25.551 [place] [address] [facility] [id number] [address] [place] [address] Dec, Right hip pain M25.551 [place] [address] [id number] [address] [place] [address] Dec, Type 2 diabetes mellitus wit h complication, without long-term current use of insulin E11.8 ; Right hip pain M25.551 and Neuropathy G62.9 [facility] [address] [id number] [address] [place] [address] Nov, Right hip pain M25.551 [place] [address] [facility] [id number] [address] [place] [address] Nov, [place] [address] [address] [place] [id number] [address] [place] [address] Oct, Right hip pain M25.551 [place] [address] [facility] [id number] [address] [place] [address] Sep, [place] [address] [place] [id number] [address] [place] [address] Sep, Type 2 diabetes mellitus wit h complication, without long-term current use of insulin E11.8 and Right hip pain M25.551 [place] [address] [address] [place] [id number] [address] [place] [address] Sep, Neuropathy G62.9 [place] [address] [place] [id number] [place] [address] Sep, Hypertriglyceridemia E78.1 [place] [address] [place] [id number] [place] [address] Aug, Type 2 diabetes mellitus wit h complication, without long-term current use of insulin E11.8 ; Right hip pain M25.551 ; Neuropathy G62.9 ; Pain of left foot M79.672 and Pain in right foot M79.671 [place] [address] [address] [place] [id number] [address] [place] [address] Aug, Type 2 diabetes mellitus wit h complication, without long-term current use of insulin E11.8 [place] [address] [place] [id number] [place] [address] Aug, Type 2 diabetes mellitus wit h complication, without long-term current use of insulin E11.8 ; Neuropathy G62.9 ; Right hip pain M25.551 ; Pain of left foot M79.672 and Pain in right foot M79.671 [place] [address] [address] [place] [id number] [address] [place] [address] Feb, [place] [address] [place] [id number] [place] [address] Feb, [facility] [address] [id number] [address] [place] [phone] March, [facility] [address] [id number] [address] [place] [phone] Feb, [facility] [address] [id number] [address] [place] [address] Oct, [facility] [address] [id number] [address] [place] [phone] Oct, [facility] [address] [id number] [address] [place] [address] Nov, [facility] [address] [id number] [address] [place] [address] Oct, [facility] [address] [id number] [address] [place] [address] Oct, [facility] [address] [id number] [address] [place] [phone] Oct, [facility] [address] [id number] [address] [place] [address] Oct, IMMUNIZATIONS No Known Immunizations SOCIAL HISTORY Never Assessed REASON FOR VISIT controlled med refill PLAN OF CARE VITAL SIGNS MEDICATIONS Unknown [...]
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
--- OUTSIDE RECORDS SUMMARY | 2020-04-07 22:48 | XMS REPORT ---
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 [id number] Problem Other chronic pain G89.29 Active 8 1114545 Problem Neuropathy G62.9 Active 026179891 Problem Type 2 diabetes mellitus wit h complication, without long-term current use of insulin E11.8 Active 46164184 Problem Right hip pain M25.551 Active 95355 [id number] Problem Hypertriglyceridemia E78.1 Active [id number] ALLERGIES No Information ENCOUNTERS Encounter Location Date Diagnosis [place] [id number] [facility] [id number] [address] [place] [id number] Jul, Right hip pain M25.551 [place] [address] [address] [facility] [id number] [address] [place] [id number] Jul, Type 2 diabetes mellitus wit h complication, without long-term current use of insulin E11.8 ; Right hip pain M25.551 and Neuropathy G62.9 [facility] [address] [facility] [id number] [address] [place] [id number] Jun, Right hip pain M25.551 [facility] [address] [facility] [id number] [address] [place] [id number] May, Right hip pain M25.551 [facility] [address] [facility] [id number] [address] [place] [phone] May, [facility] [address] [facility] [id number] [address] [place] [id number] May, Hypertriglyceridemia E78.1 [facility] [address] [id number] [address] [place] [id number] Apr, Right hip pain M25.551 [facility] [address] [facility] [id number] [address] [place] [id number] Apr, Right hip pain M25.551 and N europathy G62.9 [facility] [address] [id number] [address] [place] [id number] March, Right hip pain M25.551 and N europathy G62.9 [facility] [address] [id number] [address] [place] [id number] Feb, Seasonal allergic rhinitis, unspecified trigger J30.2 [facility] [address] [facility] [id number] [address] [place] [id number] Feb, Neuropathy G62.9 [facility] [address] [facility] [id number] [address] [place] [id number] Feb, Right hip pain M25.551 and N europathy G62.9 [facility] [address] [id number] [address] [place] [id number] Feb, Hypertriglyceridemia E78.1 [facility] [address] [facility] [id number] [address] [place] [id number] Jan, Right hip pain M25.551 and T ype 2 diabetes mellitus with complication, without long-term current use of insulin E11.8 [facility] [address] [id number] [address] [place] [id number] Jan, Neuropathy G62.9 [facility] [address] [facility] [id number] [address] [place] [id number] Jan, Right hip pain M25.551 [facility] [address] [facility] [id number] [address] [place] [id number] Dec, Right hip pain M25.551 [facility] [address] [id number] [address] [place] [id number] Nov, Right hip pain M25.551 [facility] [address] [facility] [id number] [address] [place] [id number] Oct, Right hip pain M25.551 [facility] [address] [facility] [id number] [address] [place] [id number] Sep, Right hip pain M25.551 [facility] [address] [facility] [id number] [address] [place] [id number] Aug, Right hip pain M25.551 [place] [address] [facility] [id number] [address] [place] [id number] Aug, Type 2 diabetes mellitus wit h complication, without long-term current use of insulin E11.8 and Other chronic pain G89.29 [place] [address] [place] [id number] [address] [place] [id number] Jul, Right hip pain M25.551 [place] [address] [id number] [address] [place] [phone] Jul, Right hip pain M25.551 [place] [address] [facility] [id number] [address] [place] [id number] Jul, Right hip pain M25.551 and N europathy G62.9 [place] [address] [address] [facility] [id number] [address] [place] [id number] Jun, Right hip pain M25.551 [place] [address] [id number] [address] [place] [id number] May, [facility] [address] [facility] [id number] [address] [place] [id number] May, Type 2 diabetes mellitus wit h complication, without long-term current use of insulin E11.8 and Right hip pain M25.551 [place] [address] [facility] [id number] [address] [place] [phone] Apr, Type 2 diabetes mellitus wit h complication, without long-term current use of insulin E11.8 [place] [address] [place] [id number] [place] [phone] Apr, Type 2 diabetes mellitus wit h complication, without long-term current use of insulin E11.8 ; Right hip pain M25.551 ; Neuropathy G62.9 and Hypertriglyceridemia E78.1 [place] [address] [place] [id number] [place] [phone] March, Right hip pain M25.551 and N europathy G62.9 [place] [address] [place] [id number] [place] [id number] March, Right hip pain M25.551 and N europathy G62.9 [place] [address] [place] [id number] [place] [phone] Feb, Right hip pain M25.551 [place] [address] [address] Jan, Hypertriglyceridemia E78.1 [place] [address] [address] Jan, Right hip pain M25.551 [place] [address] [place] [id number] [place] [phone] Jan, Hypertriglyceridemia E78.1 ; Dysuria R30.0 ; RLQ abdominal pain R10.31 and Right hip pain M25.551 [place] [address] [place] [id number] [address] [place] [address] Dec, Right hip pain M25.551 [place] [address] [address] [place] [id number] [place] [id number] Dec, Type 2 diabetes mellitus wit h complication, without long-term current use of insulin E11.8 ; Right hip pain M25.551 and Neuropathy G62.9 [place] [address] [place] [id number] [place] [id number] Nov, Right hip pain M25.551 [place] [address] [address] [facility] [id number] [address] [place] [id number] Nov, [place] [address] [address] [facility] [id number] [address] [place] [id number] Oct, Right hip pain M25.551 [place] [address] [address] [facility] [id number] [address] [place] [id number] Sep, [place] [address] [address] [facility] [id number] [address] [place] [id number] Sep, Type 2 diabetes mellitus wit h complication, without long-term current use of insulin E11.8 and Right hip pain M25.551 [place] [address] [place] [id number] [address] [place] [id number] Sep, Neuropathy G62.9 [place] [address] [place] [id number] [address] [place] [id number] Sep, Hypertriglyceridemia E78.1 [place] [address] [address] [place] [id number] [address] [place] [id number] Aug, Type 2 diabetes mellitus wit h complication, without long-term current use of insulin E11.8 ; Right hip pain M25.551 ; Neuropathy G62.9 ; Pain of left foot M79.672 and Pain in right foot M79.671 [place] [address] [place] [id number] [address] [place] [id number] Aug, Type 2 diabetes mellitus wit h complication, without long-term current use of insulin E11.8 [place] [address] [address] [facility] [id number] [address] [place] [id number] Aug, Type 2 diabetes mellitus wit h complication, without long-term current use of insulin E11.8 ; Neuropathy G62.9 ; Right hip pain M25.551 ; Pain of left foot M79.672 and Pain in right foot M79.671 [place] [address] [address] [place] [id number] [address] [place] [id number] 14 Feb, 2015 [facility] [address] [id number] [address] [place] [id number] Feb, [facility] [address] [id number] [address] [place] [phone] March, [facility] [address] [id number] [address] [place] [id number] Feb, [facility] [address] [id number] [address] [place] [id number] Oct, [facility] [address] [id number] [address] [place] [id number] Oct, [facility] [address] [id number] [address] [place] [phone] Nov, [facility] [address] [id number] [address] [place] [phone] Oct, [facility] [address] [id number] [address] [place] [id number] Oct, [facility] [address] [id number] [address] [place] [phone] Oct, [facility] [address] [id number] [address] [place] [phone] Oct, IMMUNIZATIONS No Known Immunizations SOCIAL HISTORY Never Assessed REASON FOR VISIT Controlled Med Refill 08/02/18 PLAN OF CARE VITAL SIGNS MEDICATIONS Medication Instructions Dosage Frequency Start Date End Date Duration S tatus Percocet 7.5-325 MG Orally 4 times a day 1 tablet 6h Jul, 28 days Active RESULTS No Results PROCEDURES [...]
--- OUTSIDE RECORDS SUMMARY | 2020-04-07 22:48 | XMS REPORT ---
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 [id number] Problem Other chronic pain G89.29 Active 8 4695011 Problem Neuropathy G62.9 Active 258859538 Problem Type 2 diabetes mellitus wit h complication, without long-term current use of insulin E11.8 Active 16562943 Problem Right hip pain M25.551 Active 12572 3076713606 Problem Hypertriglyceridemia E78.1 Active 624170300 ALLERGIES No Information ENCOUNTERS Encounter Location Date Diagnosis [place] [id number] [place] [id number] Jul, Type 2 diabetes mellitus wit h complication, without long-term current use of insulin E11.8 ; Right hip pain M25.551 and Neuropathy G62.9 [place] [address] [address] [facility] [id number] [address] [place] [phone] Jun, Right hip pain M25.551 [facility] [address] [facility] [id number] [address] [place] [id number] May, Right hip pain M25.551 [facility] [address] [facility] [id number] [address] [place] [id number] May, [facility] [address] [facility] [id number] [address] [place] [phone] May, Hypertriglyceridemia E78.1 [facility] [address] [facility] [id number] [address] [place] [id number] Apr, Right hip pain M25.551 [facility] [address] [id number] [address] [place] [id number] Apr, Right hip pain M25.551 and N europathy G62.9 [facility] [address] [id number] [address] [place] [phone] March, Right hip pain M25.551 and N europathy G62.9 [facility] [address] [id number] [address] [place] [phone] Feb, Seasonal allergic rhinitis, unspecified trigger J30.2 [facility] [address] [facility] [id number] [address] [place] [id number] Feb, Neuropathy G62.9 [facility] [address] [facility] [id number] [address] [place] [id number] Feb, Right hip pain M25.551 and N europathy G62.9 [facility] [address] [facility] [id number] [address] [place] [id number] Feb, Hypertriglyceridemia E78.1 [place] [address] [facility] [id number] [address] [place] [id number] Jan, Right hip pain M25.551 and T ype 2 diabetes mellitus with complication, without long-term current use of insulin E11.8 [place] [address] [facility] [id number] [address] [place] [phone] Jan, Neuropathy G62.9 [facility] [address] [facility] [id number] [address] [place] [phone] Jan, Right hip pain M25.551 [facility] [address] [facility] [id number] [address] [place] [id number] Dec, Right hip pain M25.551 [facility] [address] [facility] [id number] [address] [place] [id number] Nov, Right hip pain M25.551 [facility] [address] [id number] [address] [place] [id number] Oct, Right hip pain M25.551 [facility] [address] [id number] [address] [place] [phone] Sep, Right hip pain M25.551 [facility] [address] [id number] [address] [place] [id number] Aug, Right hip pain M25.551 [facility] [address] [id number] [address] [place] [id number] Aug, Type 2 diabetes mellitus wit h complication, without long-term current use of insulin E11.8 and Other chronic pain G89.29 [place] [address] [id number] [address] [place] [id number] Jul, Right hip pain M25.551 [place] [address] [id number] [address] [place] [id number] Jul, Right hip pain M25.551 [place] [address] [id number] [address] [place] [id number] Jul, Right hip pain M25.551 and N europathy G62.9 [place] [address] [id number] [address] [place] [id number] Jun, Right hip pain M25.551 [place] [address] [id number] [address] [place] [phone] May, [place] [address] [id number] [address] [place] [id number] May, Type 2 diabetes mellitus wit h complication, without long-term current use of insulin E11.8 and Right hip pain M25.551 [facility] [address] [id number] [address] [place] [id number] Apr, Type 2 diabetes mellitus wit h complication, without long-term current use of insulin E11.8 [place] [address] [id number] [address] [place] [id number] 14 Apr, 2017 Type 2 diabetes mellitus wit h complication, without long-term current use of insulin E11.8 ; Right hip pain M25.551 ; Neuropathy G62.9 and Hypertriglyceridemia E78.1 [facility] [address] [id number] [address] [place] [id number] March, Right hip pain M25.551 and N europathy G62.9 [place] [address] [id number] [address] [place] [phone] March, Right hip pain M25.551 and N europathy G62.9 [place] [address] [id number] [address] [place] [id number] Feb, Right hip pain M25.551 [place] [address] [facility] [id number] [address] [place] [phone] Jan, Hypertriglyceridemia E78.1 [place] [address] [facility] [id number] [address] [place] [phone] Jan, Right hip pain M25.551 [place] [address] [facility] [id number] [address] [place] [id number] Jan, Hypertriglyceridemia E78.1 ; Dysuria R30.0 ; RLQ abdominal pain R10.31 and Right hip pain M25.551 [place] [address] [facility] [id number] [address] [place] [phone] Dec, Right hip pain M25.551 [place] [address] [id number] [address] [place] [id number] Dec, Type 2 diabetes mellitus wit h complication, without long-term current use of insulin E11.8 ; Right hip pain M25.551 and Neuropathy G62.9 [facility] [address] [id number] [address] [place] [id number] Nov, Right hip pain M25.551 [place] [address] [facility] [id number] [address] [place] [id number] Nov, [place] [address] [place] [id number] [address] [place] [phone] Oct, Right hip pain M25.551 [place] [address] [facility] [id number] [address] [place] [id number] Sep, [place] [address] [place] [id number] [address] [place] [id number] Sep, Type 2 diabetes mellitus wit h complication, without long-term current use of insulin E11.8 and Right hip pain M25.551 [place] [address] [place] [id number] [address] [place] [id number] Sep, Neuropathy G62.9 [place] [address] [place] [id number] [place] [id number] Sep, Hypertriglyceridemia E78.1 [place] [address] [place] [id number] [place] [address] Aug, Type 2 diabetes mellitus wit h complication, without long-term current use of insulin E11.8 ; Right hip pain M25.551 ; Neuropathy G62.9 ; Pain of left foot M79.672 and Pain in right foot M79.671 [place] [address] [place] [id number] [address] [place] [id number] Aug, Type 2 diabetes mellitus wit h complication, without long-term current use of insulin E11.8 [place] [address] [place] [id number] [place] [address] Aug, Type 2 diabetes mellitus wit h complication, without long-term current use of insulin E11.8 ; Neuropathy G62.9 ; Right hip pain M25.551 ; Pain of left foot M79.672 and Pain in right foot M79.671 [place] [address] [place] [id number] [address] [place] [id number] Feb, [place] [address] [place] [id number] [place] [phone] Feb, [facility] [address] [id number] [address] [place] [phone] March, [facility] [address] [id number] [address] [place] [id number] Feb, [facility] [address] [id number] [address] [place] [id number] Oct, [facility] [address] [id number] [address] [place] [id number] Oct, [facility] [address] [id number] [address] [place] [phone] Nov, [facility] [address] [id number] [address] [place] [id number] Oct, [facility] [address] [id number] [address] [place] [id number] Oct, [facility] [address] [id number] [address] [place] [id number] Oct, [facility] [address] [id number] [address] [place] [phone] Oct, IMMUNIZATIONS No Known Immunizations SOCIAL HISTORY Never Assessed REASON FOR VISIT Controlled Med Refill 07/05/18 PLAN OF CARE VITAL SIGNS MEDICATIONS Medication Instructions Dosage Frequency Start Date End Date Duration S tatus Percocet 7.5-325 MG Orally 4 times a day 1 tablet 6h Jun, 28 days Active RESULTS No Results PROCEDURES [...]
--- OUTSIDE RECORDS SUMMARY | 2020-04-07 22:48 | XMS REPORT ---
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 Active 38630901124419954 Problem Other chronic pain G89.29 Active 8 1977382 Problem Neuropathy G62.9 Active 514212349 Problem Type 2 diabetes mellitus wit h complication, without long-term current use of insulin E11.8 Active 21781708 Problem Right hip pain M25.551 Active 62676 [id number] Problem Hypertriglyceridemia E78.1 Active [id number] ALLERGIES No Known Allergies ENCOUNTERS Encounter Location Date Diagnosis [facility] [address] [facility] [id number] [address] [place] [address] Jul, Right hip pain M25.551 [place] [address] [facility] [id number] [address] [place] [phone] Jul, Type 2 diabetes mellitus wit h complication, without long-term current use of insulin E11.8 ; Right hip pain M25.551 and Neuropathy G62.9 [facility] [address] [facility] [id number] [address] [place] [address] Jun, Right hip pain M25.551 [facility] [address] [facility] [id number] [address] [place] [phone] May, Right hip pain M25.551 [facility] [address] [facility] [id number] [address] [place] [address] May, [facility] [address] [facility] [id number] [address] [place] [address] May, Hypertriglyceridemia E78.1 [facility] [address] [id number] [address] [place] [address] Apr, Right hip pain M25.551 [facility] [address] [facility] [id number] [address] [place] [phone] Apr, Right hip pain M25.551 and N europathy G62.9 [facility] [address] [id number] [address] [place] [address] March, Right hip pain M25.551 and N europathy G62.9 [facility] [address] [id number] [address] [place] [phone] Feb, Seasonal allergic rhinitis, unspecified trigger J30.2 [facility] [address] [facility] [id number] [address] [place] [phone] Feb, Neuropathy G62.9 [facility] [address] [facility] [id number] [address] [place] [address] Feb, Right hip pain M25.551 and N europathy G62.9 [facility] [address] [facility] [id number] [address] [place] [phone] Feb, Hypertriglyceridemia E78.1 [place] [address] [facility] [id number] [address] [place] [address] Jan, Right hip pain M25.551 and T ype 2 diabetes mellitus with complication, without long-term current use of insulin E11.8 [facility] [address] [id number] [address] [place] [phone] Jan, Neuropathy G62.9 [facility] [address] [facility] [id number] [address] [place] [address] Jan, Right hip pain M25.551 [facility] [address] [facility] [id number] [address] [place] [address] Dec, Right hip pain M25.551 [facility] [address] [id number] [address] [place] [address] Nov, Right hip pain M25.551 [facility] [address] [id number] [address] [place] [id number] Oct, Right hip pain M25.551 [facility] [address] [facility] [id number] [address] [place] [phone] Sep, Right hip pain M25.551 [facility] [address] [facility] [id number] [address] [place] [id number] Aug, Right hip pain M25.551 [facility] [address] [id number] [address] [place] [phone] Aug, Type 2 diabetes mellitus wit h complication, without long-term current use of insulin E11.8 and Other chronic pain G89.29 [place] [address] [facility] [id number] [address] [place] [address] Jul, Right hip pain M25.551 [place] [address] [id number] [address] [place] [phone] Jul, Right hip pain M25.551 [place] [address] [facility] [id number] [address] [place] [address] Jul, Right hip pain M25.551 and N europathy G62.9 [place] [address] [facility] [id number] [address] [place] [id number] Jun, Right hip pain M25.551 [place] [address] [id number] [address] [place] [address] May, [facility] [address] [facility] [id number] [address] [place] [address] May, Type 2 diabetes mellitus wit h complication, without long-term current use of insulin E11.8 and Right hip pain M25.551 [place] [address] [facility] [id number] [address] [place] [address] Apr, Type 2 diabetes mellitus wit h complication, without long-term current use of insulin E11.8 [place] [address] [address] Apr, Type 2 diabetes mellitus wit h complication, without long-term current use of insulin E11.8 ; Right hip pain M25.551 ; Neuropathy G62.9 and Hypertriglyceridemia E78.1 [place] [address] [address] March, Right hip pain M25.551 and N europathy G62.9 [place] [address] [address] March, Right hip pain M25.551 and N europathy G62.9 [place] [address] [address] Feb, Right hip pain M25.551 [place] [address] [address] Jan, Hypertriglyceridemia E78.1 [place] [address] [address] Jan, Right hip pain M25.551 [place] [address] [address] Jan, Hypertriglyceridemia E78.1 ; Dysuria R30.0 ; RLQ abdominal pain R10.31 and Right hip pain M25.551 [place] [address] [address] Dec, Right hip pain M25.551 [place] [address] [address] Dec, Type 2 diabetes mellitus wit h complication, without long-term current use of insulin E11.8 ; Right hip pain M25.551 and Neuropathy G62.9 [place] [address] [address] Nov, Right hip pain M25.551 [place] [address] [facility] [id number] [address] [place] [phone] Nov, [place] [address] [facility] [id number] [address] [place] [address] Oct, Right hip pain M25.551 [place] [address] [place] [id number] [address] [place] [phone] Sep, [place] [address] [facility] [id number] [address] [place] [id number] Sep, Type 2 diabetes mellitus wit h complication, without long-term current use of insulin E11.8 and Right hip pain M25.551 [place] [address] [place] [id number] [address] [place] [phone] Sep, Neuropathy G62.9 [place] [address] [place] [id number] [place] [address] Sep, Hypertriglyceridemia E78.1 [place] [address] [place] [id number] [address] [place] [address] Aug, Type 2 diabetes mellitus wit h complication, without long-term current use of insulin E11.8 ; Right hip pain M25.551 ; Neuropathy G62.9 ; Pain of left foot M79.672 and Pain in right foot M79.671 [place] [address] [place] [id number] [address] [place] [address] Aug, Type 2 diabetes mellitus wit h complication, without long-term current use of insulin E11.8 [place] [address] [facility] [id number] [address] [place] [address] Aug, Type 2 diabetes mellitus wit h complication, without long-term current use of insulin E11.8 ; Neuropathy G62.9 ; Right hip pain M25.551 ; Pain of left foot M79.672 and Pain in right foot M79.671 [place] [address] [place] [id number] [address] [place] [id number] 14 Feb, 2015 [facility] [address] [id number] [address] [place] [phone] Feb, [facility] [address] [id number] [address] [place] [phone] March, [facility] [address] [id number] [address] [place] [phone] Feb, [facility] [address] [id number] [address] [place] [phone] Oct, [facility] [address] [id number] [address] [place] [phone] Oct, [facility] [address] [id number] [address] [place] [phone] Nov, [facility] [address] [id number] [address] [place] [phone] Oct, [facility] [address] [id number] [address] [place] [phone] Oct, [facility] [address] [id number] [address] [place] [phone] Oct, [facility] [address] [id number] [address] [place] [phone] Oct, IMMUNIZATIONS No Known Immunizations SOCIAL HISTORY Never Assessed REASON FOR VISIT pain in feet dennise miller PLAN OF CARE Activity Details Follow Up prn Reason: VITAL SIGNS Height 69.75 in 2018-07-13 Weight 222 lbs 2018-07-13 Temperature 97.9 degrees Fahrenheit 2018-07-13 Heart Rate 88 bpm 2018-07-13 Respiratory Rate 20 2018-07-13 BMI 32.08 kg/m2 2018-07-13 Blood pressure systolic 136 mmHg 2018-07-13 Blood pressure diastolic 80 mmHg 2018-07-13 MEDICATIONS Medication Instructions Dosage Frequency Start Date End Date Duration S neal GlipiZIDE ER 10 MG Orally Once a day in AM 1 tablet Aug, 90 days Active Blood Glucose Test - subcutaneously 2 times a day test blood sugar 12h Active Blood Glucose Monitor System w/Device subcutaneously 2 times a day test blood sugar 12h Active Pioglitazone HCl 45 MG Orally Once a day 1 tablet 24h Jan, 30 day(s) Not-Taking Zetia 10 mg Orally Once a day 1 tablet 24h 13 Jan, 2017 90 d ays Not-Taking Lisinopril 5 MG Orally Once a day 1 tablet 24h 23 Apr, 2017 Not-Taking Lipitor 80 MG Orally Once a day 1 tablet 24h 90 days Active MetFORMIN HCl ER 500 MG Orally 2 times a day 2 tablets 12h Aug, 016 90 Active Victoza 18 MG/3ML Subcutaneous Once a day 1.8 mg 24h Not-Taking Percocet 7.5-325 MG Orally 4 times a day 1 tablet 6h 25 Jun, 2018 28 days Active Lyrica 150 MG Orally 2 times a day 2 capsules 12h Aug, 28 days Active RESULTS Name Result Date Reference Range A1C (IN HOUSE) 2018-07-13 A1C IN HOUSE 8.4 4.3 - 5.6 % Previous A1c 11.6 Lot [id number] Exp date 01/2020 PROCEDURES Procedure Date Ordered Result Body Site GLYCATED HEMOGLOBIN TEST Jul 13, 2018 INSTRUCTIONS MEDICATIONS ADMINISTERED No Known Medications MEDICAL [...]
--- OUTSIDE RECORDS SUMMARY | 2020-04-07 22:48 | XMS REPORT ---
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 59484474676572905 Problem Other chronic pain G89.29 Active 8 8398741 Problem Neuropathy G62.9 Active 572224021 Problem Type 2 diabetes mellitus wit h complication, without long-term current use of insulin E11.8 Active 94725505 Problem Right hip pain M25.551 Active 34222 6260271649 Problem Hypertriglyceridemia E78.1 Active 012236687 ALLERGIES No Information ENCOUNTERS Encounter Location Date Diagnosis [place] [id number] [place] [address] Jul, Type 2 diabetes mellitus wit h complication, without long-term current use of insulin E11.8 ; Right hip pain M25.551 and Neuropathy G62.9 [place] [address] [facility] [id number] [address] [place] [address] Jun, Right hip pain M25.551 [facility] [address] [facility] [id number] [address] [place] [address] May, Right hip pain M25.551 [facility] [address] [facility] [id number] [address] [place] [address] May, [facility] [address] [facility] [id number] [address] [place] [address] May, Hypertriglyceridemia E78.1 [facility] [address] [facility] [id number] [address] [place] [address] Apr, Right hip pain M25.551 [facility] [address] [id number] [address] [place] [address] Apr, Right hip pain M25.551 and N europathy G62.9 [facility] [address] [id number] [address] [place] [address] March, Right hip pain M25.551 and N europathy G62.9 [facility] [address] [id number] [address] [place] [address] Feb, Seasonal allergic rhinitis, unspecified trigger J30.2 [facility] [address] [facility] [id number] [address] [place] [phone] Feb, Neuropathy G62.9 [facility] [address] [facility] [id number] [address] [place] [address] Feb, Right hip pain M25.551 and N europathy G62.9 [facility] [address] [facility] [id number] [address] [place] [phone] Feb, Hypertriglyceridemia E78.1 [place] [address] [facility] [id number] [address] [place] [address] Jan, Right hip pain M25.551 and T ype 2 diabetes mellitus with complication, without long-term current use of insulin E11.8 [place] [address] [facility] [id number] [address] [place] [address] Jan, Neuropathy G62.9 [facility] [address] [facility] [id number] [address] [place] [address] Jan, Right hip pain M25.551 [facility] [address] [facility] [id number] [address] [place] [address] Dec, Right hip pain M25.551 [facility] [address] [facility] [id number] [address] [place] [address] Nov, Right hip pain M25.551 [facility] [address] [id number] [address] [place] [address] Oct, Right hip pain M25.551 [facility] [address] [id number] [address] [place] [address] Sep, Right hip pain M25.551 [facility] [address] [id number] [address] [place] [address] Aug, Right hip pain M25.551 [facility] [address] [id number] [address] [place] [phone] Aug, Type 2 diabetes mellitus wit h complication, without long-term current use of insulin E11.8 and Other chronic pain G89.29 [place] [address] [id number] [address] [place] [address] Jul, Right hip pain M25.551 [place] [address] [id number] [address] [place] [address] Jul, Right hip pain M25.551 [place] [address] [id number] [address] [place] [address] Jul, Right hip pain M25.551 and N europathy G62.9 [place] [address] [id number] [address] [place] [address] Jun, Right hip pain M25.551 [place] [address] [id number] [address] [place] [address] May, [place] [address] [id number] [address] [place] [address] May, Type 2 diabetes mellitus wit h complication, without long-term current use of insulin E11.8 and Right hip pain M25.551 [facility] [address] [id number] [address] [place] [address] Apr, Type 2 diabetes mellitus wit h complication, without long-term current use of insulin E11.8 [place] [address] [id number] [address] [place] [address] 14 Apr, 2017 Type 2 diabetes mellitus wit h complication, without long-term current use of insulin E11.8 ; Right hip pain M25.551 ; Neuropathy G62.9 and Hypertriglyceridemia E78.1 [facility] [address] [id number] [address] [place] [address] March, Right hip pain M25.551 and N europathy G62.9 [place] [address] [id number] [address] [place] [address] March, Right hip pain M25.551 and N europathy G62.9 [place] [address] [id number] [address] [place] [address] Feb, Right hip pain M25.551 [place] [address] [facility] [id number] [address] [place] [address] Jan, Hypertriglyceridemia E78.1 [place] [address] [facility] [id number] [address] [place] [address] Jan, Right hip pain M25.551 [place] [address] [facility] [id number] [address] [place] [address] Jan, Hypertriglyceridemia E78.1 ; Dysuria R30.0 ; RLQ abdominal pain R10.31 and Right hip pain M25.551 [place] [address] [facility] [id number] [address] [place] [address] Dec, Right hip pain M25.551 [place] [address] [id number] [address] [place] [address] Dec, Type 2 diabetes mellitus wit h complication, without long-term current use of insulin E11.8 ; Right hip pain M25.551 and Neuropathy G62.9 [facility] [address] [id number] [address] [place] [address] Nov, Right hip pain M25.551 [place] [address] [facility] [id number] [address] [place] [address] Nov, [place] [address] [place] [id number] [address] [place] [address] Oct, Right hip pain M25.551 [place] [address] [facility] [id number] [address] [place] [address] Sep, [place] [address] [place] [id number] [address] [place] [address] Sep, Type 2 diabetes mellitus wit h complication, without long-term current use of insulin E11.8 and Right hip pain M25.551 [place] [address] [place] [id number] [address] [place] [address] Sep, Neuropathy G62.9 [place] [address] [place] [id number] [place] [address] Sep, Hypertriglyceridemia E78.1 [place] [address] [place] [id number] [place] [address] Aug, Type 2 diabetes mellitus wit h complication, without long-term current use of insulin E11.8 ; Right hip pain M25.551 ; Neuropathy G62.9 ; Pain of left foot M79.672 and Pain in right foot M79.671 [place] [address] [place] [id number] [address] [place] [address] Aug, Type 2 diabetes mellitus wit h complication, without long-term current use of insulin E11.8 [place] [address] [place] [id number] [place] [address] Aug, Type 2 diabetes mellitus wit h complication, without long-term current use of insulin E11.8 ; Neuropathy G62.9 ; Right hip pain M25.551 ; Pain of left foot M79.672 and Pain in right foot M79.671 [place] [address] [place] [id number] [address] [place] [address] Feb, [place] [address] [place] [id number] [place] [address] Feb, [facility] [address] [id number] [address] [place] [address] March, [facility] [address] [id number] [address] [place] [address] Feb, [facility] [address] [id number] [address] [place] [address] Oct, [facility] [address] [id number] [address] [place] [phone] Oct, [facility] [address] [id number] [address] [place] [phone] Nov, [facility] [address] [id number] [address] [place] [phone] Oct, [facility] [address] [id number] [address] [place] [phone] Oct, [facility] [address] [id number] [address] [place] [phone] Oct, [facility] [address] [id number] [address] [place] [address] Oct, IMMUNIZATIONS No Known Immunizations SOCIAL HISTORY Never Assessed REASON FOR VISIT Controlled Med Refill 06/07/18 PLAN OF CARE VITAL SIGNS MEDICATIONS Medication Instructions Dosage Frequency Start Date End Date Duration S tatus Percocet 7.5-325 MG Orally 4 times a day 1 tablet 6h May, 28 days Active RESULTS No Results PROCEDURES [...]
--- OUTSIDE RECORDS SUMMARY | 2020-04-07 22:48 | XMS REPORT ---
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 Active [id number] Problem Type 2 diabetes mellitus wit h complication, without long-term current use of insulin E11.8 Active 24344962 Problem Neuropathy G62.9 Active 100370187 Problem Hypertriglyceridemia E78.1 Active 154007062 Problem Right hip pain M25.551 Active 13683 [id number] ALLERGIES No Information ENCOUNTERS Encounter Location Date Diagnosis [id number] [id number] [address] [place] [id number] Dec, Right hip pain M25.551 [facility] [address] [facility] [id number] [address] [place] [id number] Nov, [facility] [place] [address] [facility] [id number] [address] [place] [address] Nov, Right hip pain M25.551 [facility] [place] [address] [place] [id number] [address] [place] [id number] Oct, Right hip pain M25.551 [facility] [place] [address] [id number] [address] [place] [id number] Sep, Right hip pain M25.551 and N europathy G62.9 [facility] [place] [address] [facility] [id number] [address] [place] [id number] Aug, Right hip pain M25.551 [facility] [place] [address] [facility] [id number] [address] [place] [id number] 24 Jul, 2018 Right hip pain M25.551 [facility] [place] [address] [id number] [address] [place] [id number] Jul, Type 2 diabetes mellitus wit h complication, without long-term current use of insulin E11.8 ; Right hip pain M25.551 and Neuropathy G62.9 [facility] [place] [address] [id number] [address] [place] [id number] Jun, Right hip pain M25.551 [facility] [place] [address] [id number] [address] [place] [id number] May, Right hip pain M25.551 [facility] [place] [address] [id number] [address] [place] [id number] May, [facility] [place] [address] [id number] [address] [place] [id number] May, Hypertriglyceridemia E78.1 [facility] [place] [address] [id number] [address] [place] [id number] Apr, Right hip pain M25.551 [facility] [place] [address] [id number] [address] [place] [id number] Apr, Right hip pain M25.551 and N europathy G62.9 [facility] [place] [address] [id number] [address] [place] [id number] March, Right hip pain M25.551 and N europathy G62.9 [facility] [address] [id number] [address] [place] [id number] Feb, Seasonal allergic rhinitis, unspecified trigger J30.2 [facility] [place] [address] [id number] [address] [place] [id number] Feb, Neuropathy G62.9 [facility] [place] [address] [facility] [id number] [address] [place] [id number] Feb, Right hip pain M25.551 and N europathy G62.9 [facility] [place] [address] [id number] [address] [place] [id number] Feb, Hypertriglyceridemia E78.1 [facility] [place] [address] [id number] [address] [place] [address] Jan, Right hip pain M25.551 and T ype 2 diabetes mellitus with complication, without long-term current use of insulin E11.8 [place] [address] [id number] [address] [place] [id number] Jan, Neuropathy G62.9 [facility] [place] [address] [id number] [address] [place] [address] Jan, Right hip pain M25.551 [place] [address] [facility] [id number] [address] [place] [address] Dec, Right hip pain M25.551 [place] [address] [id number] [address] [place] [address] Nov, Right hip pain M25.551 [facility] [place] [address] [id number] [address] [place] [address] Oct, Right hip pain M25.551 [place] [address] [facility]ED [facility] [id number] [address] [place] [id number] Sep, Right hip pain M25.551 [facility] [place] [address] [facility] [id number] [address] [place] [id number] Aug, Right hip pain M25.551 [facility] [place] [address] [facility] [id number] [address] [place] [id number] Aug, Type 2 diabetes mellitus wit h complication, without long-term current use of insulin E11.8 and Other chronic pain G89.29 [facility] [place] [address] [id number] [address] [place] [address] Jul, Right hip pain M25.551 [facility] [place] [address] [facility] [id number] [address] [place] [address] Jul, Right hip pain M25.551 [place] [address] [id number] [address] [place] [id number] Jul, Right hip pain M25.551 and N europathy G62.9 [place] [address] [facility]AM[facility] [id number] [address] [place] [address] Jun, Right hip pain M25.551 [place] [address] [facility]AMED [facility] [id number] [address] [place] [address] May, [place] [address] [facility]AMED [facility] [id number] [address] [place] [id number] May, Type 2 diabetes mellitus wit h complication, without long-term current use of insulin E11.8 and Right hip pain M25.551 [place] [address] [facility]AMED [facility] [id number] [address] [place] [id number] Apr, Type 2 diabetes mellitus wit h complication, without long-term current use of insulin E11.8 [place] [address] [facility]AM[address] [facility] [id number] [address] [place] [id number] Apr, Type 2 diabetes mellitus wit h complication, without long-term current use of insulin E11.8 ; Right hip pain M25.551 ; Neuropathy G62.9 and Hypertriglyceridemia E78.1 [place] [address] [place] [id number] [address] [place] [id number] March, Right hip pain M25.551 and N europathy G62.9 [place] [address] [facility]AMED [facility] [id number] [address] [place] [address] March, Right hip pain M25.551 and N europathy G62.9 [place] [address] [facility] [facility] [id number] [address] [place] [address] Feb, Right hip pain M25.551 [place] [address] [facility] [id number] [address] [place] [id number] Jan, Hypertriglyceridemia E78.1 [place] [address] [place] [id number] [address] [place] [id number] Jan, Right hip pain M25.551 [facility] [place] [address] [id number] [address] [place] [id number] Jan, Hypertriglyceridemia E78.1 ; Dysuria R30.0 ; RLQ abdominal pain R10.31 and Right hip pain M25.551 [facility] [place] [address] [facility] [id number] [address] [place] [id number] Dec, Right hip pain M25.551 [facility] [place] [address] [id number] [address] [place] [id number] Dec, Type 2 diabetes mellitus wit h complication, without long-term current use of insulin E11.8 ; Right hip pain M25.551 and Neuropathy G62.9 [place] [address] [place] [id number] [address] [place] [address] Nov, Right hip pain M25.551 [place] [address] [facility] [id number] [address] [place] [id number] Nov, [facility] [place] [address] [address] [facility] [id number] [address] [place] [id number] Oct, Right hip pain M25.551 [facility] [place] [address] [facility] [id number] [address] [place] [id number] Sep, [facility] [place] [address] [facility] [id number] [address] [place] [id number] Sep, Type 2 diabetes mellitus wit h complication, without long-term current use of insulin E11.8 and Right hip pain M25.551 [facility] [place] [address] [facility] [id number] [address] [place] [id number] Sep, Neuropathy G62.9 [facility] [place] [address] [address] [facility] [id number] [address] [place] [id number] Sep, Hypertriglyceridemia E78.1 [place] [address] [facility] [id number] [address] [place] [address] Aug, Type 2 diabetes mellitus wit h complication, without long-term current use of insulin E11.8 ; Right hip pain M25.551 ; Neuropathy G62.9 ; Pain of left foot M79.672 and Pain in right foot M79.671 [facility] [place] [address] [id number] [address] [place] [id number] 31 Aug, 2016 Type 2 diabetes mellitus wit h complication, without long-term current use of insulin E11.8 [facility] [place] [address] [id number] [address] [place] [id number] 17 Aug, 2016 Type 2 diabetes mellitus wit h complication, without long-term current use of insulin E11.8 ; Neuropathy G62.9 ; Right hip pain M25.551 ; Pain of left foot M79.672 and Pain in right foot M79.671 [facility] [place] [address] [id number] [address] [place] [id number] Feb, [facility] [place] [address] [id number] [address] [place] [id number] Feb, [facility] [place] [address] [id number] [address] [place] [id number] March, [facility] [place] [address] [id number] [address] [place] [id number] Feb, [facility] [place] [address] [id number] [address] [place] [id number] Oct, [facility] [address] [id number] [address] [place] [id number] Oct, [facility] [place] [address] [id number] [address] [place] [id number] Nov, [facility] [address] [id number] [address] [place] [id number] Oct, [facility] [place] [address] [id number] [address] [place] [id number] Oct, [facility] [address] [id number] [address] [place] [id number] Oct, [facility] [address] [address] [facility] [id number] [address] [address] Oct, IMMUNIZATIONS No Known Immunizations SOCIAL HISTORY Never Assessed REASON FOR VISIT EMR-[facility] [place] PLAN OF CARE VITAL SIGNS MEDICATIONS Medication Instructions Dosage Frequency Start Date End Date Duration S tatus Victoza 18 mg/ 3mlStrength by Subcutaneo us route 1 time per dayGive 1.8 mg daily Feb, Active RESULTS No Results PROCEDURES No Known [...]
--- OUTSIDE RECORDS SUMMARY | 2020-04-07 22:49 | XMS REPORT ---
Author Author Ervin MARIE Organization 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 37370732610846336 Problem Other chronic pain G89.29 Active 8 1120015 Problem Neuropathy G62.9 Active 881262721 Problem Type 2 diabetes mellitus wit h complication, without long-term current use of insulin E11.8 Active 30669220 Problem Right hip pain M25.551 Active 68789 8038531971 Problem Hypertriglyceridemia E78.1 Active 585449529 ALLERGIES No Information ENCOUNTERS Encounter Location Date Diagnosis [place] [address] [facility] [id number] [address] [place] [id number] Jul, [place] [address] [facility] [id number] [address] [place] [id number] Jul, Type 2 diabetes mellitus wit h complication, without long-term current use of insulin E11.8 ; Right hip pain M25.551 and Neuropathy G62.9 [place] [address] [facility] [id number] [address] [place] [id number] Jun, Right hip pain M25.551 [place] [address] [facility] [id number] [address] [place] [id number] May, Right hip pain M25.551 [place] [address] [address] [facility] [id number] [address] [place] [phone] May, [facility] [address] [facility] [id number] [address] [place] [id number] May, Hypertriglyceridemia E78.1 [facility] [address] [id number] [address] [place] [id number] Apr, Right hip pain M25.551 [facility] [address] [id number] [address] [place] [id number] Apr, Right hip pain M25.551 and N europathy G62.9 [facility] [address] [id number] [address] [place] [id number] March, Right hip pain M25.551 and N europathy G62.9 [facility] [address] [id number] [address] [place] [phone] Feb, Seasonal allergic rhinitis, unspecified trigger J30.2 [facility] [address] [id number] [address] [place] [id number] Feb, Neuropathy G62.9 [facility] [address] [facility] [id number] [address] [place] [id number] Feb, Right hip pain M25.551 and N europathy G62.9 [facility] [address] [id number] [address] [place] [id number] Feb, Hypertriglyceridemia E78.1 [place] [address] [facility] [id number] [address] [place] [id number] Jan, Right hip pain M25.551 and T ype 2 diabetes mellitus with complication, without long-term current use of insulin E11.8 [facility] [address] [id number] [address] [place] [phone] Jan, Neuropathy G62.9 [facility] [address] [facility] [id number] [address] [place] [id number] Jan, Right hip pain M25.551 [facility] [address] [facility] [id number] [address] [place] [id number] Dec, Right hip pain M25.551 [facility] [address] [facility] [id number] [address] [place] [id number] Nov, Right hip pain M25.551 [facility] [address] [id number] [address] [place] [id number] Oct, Right hip pain M25.551 [facility] [address] [id number] [address] [place] [id number] Sep, Right hip pain M25.551 [facility] [address] [id number] [address] [place] [id number] Aug, Right hip pain M25.551 [facility] [address] [id number] [address] [place] [id number] Aug, Type 2 diabetes mellitus wit h complication, without long-term current use of insulin E11.8 and Other chronic pain G89.29 [place] [address] [id number] [address] [place] [id number] Jul, Right hip pain M25.551 [facility] [address] [id number] [address] [place] [id number] Jul, Right hip pain M25.551 [facility] [address] [id number] [address] [place] [id number] Jul, Right hip pain M25.551 and N europathy G62.9 [facility] [address] [id number] [address] [place] [id number] Jun, Right hip pain M25.551 [facility] [address] [id number] [address] [place] [id number] May, [facility] [address] [id number] [address] [place] [id number] May, Type 2 diabetes mellitus wit h complication, without long-term current use of insulin E11.8 and Right hip pain M25.551 [facility] [address] [facility] [id number] [address] [place] [id number] Apr, Type 2 diabetes mellitus wit h complication, without long-term current use of insulin E11.8 [place] [address] [facility] [id number] [address] [place] [id number] Apr, Type 2 diabetes mellitus wit h complication, without long-term current use of insulin E11.8 ; Right hip pain M25.551 ; Neuropathy G62.9 and Hypertriglyceridemia E78.1 [place] [address] [address] [place] [id number] [address] [place] [id number] March, Right hip pain M25.551 and N europathy G62.9 [place] [address] [facility] [id number] [address] [place] [id number] March, Right hip pain M25.551 and N europathy G62.9 [place] [address] [address] [place] [id number] [address] [place] [id number] Feb, Right hip pain M25.551 [place] [address] [address] [place] [id number] [address] [place] [id number] Jan, Hypertriglyceridemia E78.1 [place] [address] [place] [id number] [place] [phone] Jan, Right hip pain M25.551 [place] [address] [address] [place] [id number] [address] [place] [id number] Jan, Hypertriglyceridemia E78.1 ; Dysuria R30.0 ; RLQ abdominal pain R10.31 and Right hip pain M25.551 [place] [address] [address] [place] [id number] [address] [place] [id number] Dec, Right hip pain M25.551 [place] [address] [address] [place] [id number] [address] [place] [id number] Dec, Type 2 diabetes mellitus wit h complication, without long-term current use of insulin E11.8 ; Right hip pain M25.551 and Neuropathy G62.9 [place] [address] [place] [id number] [address] [place] [id number] Nov, Right hip pain M25.551 [place] [address] [address] [place] [id number] [address] [place] [id number] Nov, [place] [address] [place] [id number] [address] [place] [id number] Oct, Right hip pain M25.551 [place] [address] [address] [place] [id number] [address] [place] [id number] Sep, [place] [address] [place] [id number] [place] [id number] Sep, Type 2 diabetes mellitus wit h complication, without long-term current use of insulin E11.8 and Right hip pain M25.551 [place] [address] [address] [place] [id number] [place] [id number] Sep, Neuropathy G62.9 [place] [address] [address] Sep, Hypertriglyceridemia E78.1 [place] [address] [address] [place] [id number] [address] [place] [phone] Aug, Type 2 diabetes mellitus wit h complication, without long-term current use of insulin E11.8 ; Right hip pain M25.551 ; Neuropathy G62.9 ; Pain of left foot M79.672 and Pain in right foot M79.671 [place] [address] [address] [place] [id number] [address] [place] [id number] Aug, Type 2 diabetes mellitus wit h complication, without long-term current use of insulin E11.8 [place] [address] [place] [id number] [address] [place] [id number] Aug, Type 2 diabetes mellitus wit h complication, without long-term current use of insulin E11.8 ; Neuropathy G62.9 ; Right hip pain M25.551 ; Pain of left foot M79.672 and Pain in right foot M79.671 [place] [address] [place] [id number] [address] [place] [phone] Feb, [facility] [address] [id number] [address] [place] [id number] Feb, [facility] [address] [id number] [address] [place] [id number] March, [facility] [address] [id number] [address] [place] [id number] Feb, [facility] [address] [id number] [address] [place] [phone] Oct, [facility] [address] [id number] [address] [place] [id number] Oct, [facility] [address] [id number] [address] [place] [phone] Nov, [facility] [address] [id number] [address] [place] [phone] Oct, [facility] [address] [id number] [address] [place] [phone] Oct, [facility] [address] [id number] [address] [place] [phone] Oct, [facility] [address] [id number] [address] [place] [phone] Oct, IMMUNIZATIONS No Known Immunizations SOCIAL HISTORY Never Assessed REASON FOR VISIT Lab (walk-in) PLAN OF CARE VITAL SIGNS MEDICATIONS Unknown Medications RESULTS No Results PROCEDURES Procedure Date Ordered Result Body Site LIPID PANEL May 24, 2018 VENIPUNCT, ROUTINE* May 24, 2018 INSTRUCTIONS MEDICATIONS ADMINISTERED No Known Medications [...]
--- OUTSIDE RECORDS SUMMARY | 2020-04-07 22:49 | XMS REPORT ---
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 [id number] Problem Other chronic pain G89.29 Active 8 7054193 Problem Neuropathy G62.9 Active 962793203 Problem Type 2 diabetes mellitus wit h complication, without long-term current use of insulin E11.8 Active 11240384 Problem Right hip pain M25.551 Active 26542 2877019631 Problem Hypertriglyceridemia E78.1 Active 921710755 ALLERGIES No Information ENCOUNTERS Encounter Location Date Diagnosis [facility] [address] [id number] [address] [place] [id number] May, Hypertriglyceridemia E78.1 [facility] [address] [id number] [address] [place] [id number] Apr, Right hip pain M25.551 [facility] [address] [id number] [address] [place] [phone] Apr, Right hip pain M25.551 and N europathy G62.9 [facility] [address] [facility] [id number] [address] [place] [id number] March, Right hip pain M25.551 and N europathy G62.9 [facility] [address] [facility] [id number] [address] [place] [id number] Feb, Seasonal allergic rhinitis, unspecified trigger J30.2 [facility] [address] [facility] [id number] [address] [place] [phone] Feb, Neuropathy G62.9 [facility] [address] [id number] [address] [place] [id number] Feb, Right hip pain M25.551 and N europathy G62.9 [facility] [address] [id number] [address] [place] [id number] Feb, Hypertriglyceridemia E78.1 [facility] [address] [id number] [address] [place] [id number] Jan, Right hip pain M25.551 and T ype 2 diabetes mellitus with complication, without long-term current use of insulin E11.8 [facility] [address] [id number] [address] [place] [id number] Jan, Neuropathy G62.9 [facility] [address] [id number] [address] [place] [id number] Jan, Right hip pain M25.551 [facility] [address] [id number] [address] [place] [phone] Dec, Right hip pain M25.551 [facility] [address] [id number] [address] [place] [id number] Nov, Right hip pain M25.551 [facility] [address] [id number] [address] [place] [phone] Oct, Right hip pain M25.551 [facility] [address] [id number] [address] [place] [phone] Sep, Right hip pain M25.551 [facility] [address] [id number] [address] [place] [phone] Aug, Right hip pain M25.551 [facility] [address] [facility] [id number] [address] [place] [id number] Aug, Type 2 diabetes mellitus wit h complication, without long-term current use of insulin E11.8 and Other chronic pain G89.29 [facility] [address] [id number] [address] [place] [phone] Jul, Right hip pain M25.551 [place] [address] [id number] [address] [place] [id number] Jul, Right hip pain M25.551 [place] [address] [facility] [id number] [address] [place] [phone] Jul, Right hip pain M25.551 and N europathy G62.9 [place] [address] [id number] [address] [place] [phone] Jun, Right hip pain M25.551 [place] [address] [facility] [id number] [address] [place] [phone] May, [place] [address] [facility] [id number] [address] [place] [phone] May, Type 2 diabetes mellitus wit h complication, without long-term current use of insulin E11.8 and Right hip pain M25.551 [place] [address] [facility] [id number] [address] [place] [phone] Apr, Type 2 diabetes mellitus wit h complication, without long-term current use of insulin E11.8 [place] [address] [facility] [id number] [address] [place] [phone] Apr, Type 2 diabetes mellitus wit h complication, without long-term current use of insulin E11.8 ; Right hip pain M25.551 ; Neuropathy G62.9 and Hypertriglyceridemia E78.1 [place] [address] [id number] [address] [place] [phone] March, Right hip pain M25.551 and N europathy G62.9 [place] [address] [facility] [id number] [address] [place] [phone] March, Right hip pain M25.551 and N europathy G62.9 [place] [address] [facility] [id number] [address] [place] [phone] Feb, Right hip pain M25.551 [facility] [address] [id number] [address] [place] [phone] Jan, Hypertriglyceridemia E78.1 [facility] [address] [facility] [id number] [address] [place] [phone] Jan, Right hip pain M25.551 [facility] [address] [facility] [id number] [address] [place] [phone] Jan, Hypertriglyceridemia E78.1 ; Dysuria R30.0 ; RLQ abdominal pain R10.31 and Right hip pain M25.551 [facility] [address] [id number] [address] [place] [id number] Dec, Right hip pain M25.551 [facility] [address] [facility] [id number] [address] [place] [id number] Dec, Type 2 diabetes mellitus wit h complication, without long-term current use of insulin E11.8 ; Right hip pain M25.551 and Neuropathy G62.9 [facility] [address] [id number] [address] [place] [phone] Nov, Right hip pain M25.551 [facility] [address] [id number] [address] [place] [phone] Nov, [facility] [address] [id number] [address] [place] [phone] Oct, Right hip pain M25.551 [facility] [address] [id number] [address] [place] [phone] Sep, [facility] [address] [facility] [id number] [address] [place] [phone] Sep, Type 2 diabetes mellitus wit h complication, without long-term current use of insulin E11.8 and Right hip pain M25.551 [facility] [address] [facility] [id number] [address] [place] [id number] Sep, Neuropathy G62.9 [facility] [address] [facility] [id number] [address] [place] [phone] Sep, Hypertriglyceridemia E78.1 [facility] [address] [facility] [id number] [address] [place] [id number] Aug, Type 2 diabetes mellitus wit h complication, without long-term current use of insulin E11.8 [facility] [address] [facility] [id number] [address] [place] [phone] Aug, Type 2 diabetes mellitus wit h complication, without long-term current use of insulin E11.8 ; Right hip pain M25.551 ; Neuropathy G62.9 ; Pain of left foot M79.672 and Pain in right foot M79.671 [facility] [address] [facility] [id number] [address] [place] [phone] Aug, Type 2 diabetes mellitus wit h complication, without long-term current use of insulin E11.8 ; Neuropathy G62.9 ; Right hip pain M25.551 ; Pain of left foot M79.672 and Pain in right foot M79.671 [facility] [address] [facility] [id number] [address] [place] [id number] Feb, [facility] [address] [id number] [address] [place] [phone] Feb, [facility] [address] [facility] [id number] [address] [place] [phone] March, [facility] [address] [id number] [address] [place] [phone] Feb, [facility] [address] [id number] [address] [place] [phone] Oct, [facility] [address] [id number] [address] [place] [phone] Oct, [facility] [address] [facility] [id number] [address] [place] [phone] Nov, [facility] [address] [id number] [address] [place] [phone] Oct, [facility] [address] [facility] [id number] [address] [place] [phone] Oct, [facility] [address] [facility] [id number] [address] [place] [phone] Oct, [facility] [address] [facility] [id number] [address] [place] [phone] Oct, IMMUNIZATIONS No Known Immunizations SOCIAL HISTORY Never Assessed REASON FOR VISIT Resend Lyrica PLAN OF CARE VITAL SIGNS MEDICATIONS Medication Instructions Dosage Frequency Start Date End Date Duration S tat Lyrica 150 MG Orally 2 times a day 2 capsules 12h 17 Aug, 2016 28 days Active RESULTS No Results PROCEDURES [...]
--- OUTSIDE RECORDS SUMMARY | 2020-04-07 22:49 | XMS REPORT ---
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 Active [id number] Problem Other chronic pain G89.29 Active 8 7960703 Problem Neuropathy G62.9 Active 385322201 Problem Type 2 diabetes mellitus wit h complication, without long-term current use of insulin E11.8 Active 24110513 Problem Right hip pain M25.551 Active 36885 2128310399 Problem Hypertriglyceridemia E78.1 Active 001809079 ALLERGIES No Information ENCOUNTERS Encounter Location Date Diagnosis [facility] [address] [facility] [id number] [address] [place] [id number] Apr, Right hip pain M25.551 [facility] [address] [facility] [id number] [address] [place] [id number] Apr, Right hip pain M25.551 and N europathy G62.9 [facility] [address] [facility] [id number] [address] [place] [id number] March, Right hip pain M25.551 and N europathy G62.9 [facility] [address] [facility] [id number] [address] [place] [phone] Feb, Seasonal allergic rhinitis, unspecified trigger J30.2 [facility] [address] [facility] [id number] [address] [place] [phone] Feb, Neuropathy G62.9 [facility] [address] [facility] [id number] [address] [place] [phone] Feb, Right hip pain M25.551 and N europathy G62.9 [facility] [address] [id number] [address] [place] [phone] Feb, Hypertriglyceridemia E78.1 [facility] [address] [id number] [address] [place] [id number] Jan, Right hip pain M25.551 and T ype 2 diabetes mellitus with complication, without long-term current use of insulin E11.8 [facility] [address] [id number] [address] [place] [phone] Jan, Neuropathy G62.9 [facility] [address] [id number] [address] [place] [phone] Jan, Right hip pain M25.551 [place] [address] [id number] [address] [place] [address] Dec, Right hip pain M25.551 [facility] [address] [id number] [address] [place] [phone] Nov, Right hip pain M25.551 [facility] [address] [id number] [address] [place] [id number] Oct, Right hip pain M25.551 [facility] [address] [id number] [address] [place] [id number] Sep, Right hip pain M25.551 [facility] [address] [id number] [address] [place] [id number] Aug, Right hip pain M25.551 [facility] [address] [id number] [address] [place] [id number] Aug, Type 2 diabetes mellitus wit h complication, without long-term current use of insulin E11.8 and Other chronic pain G89.29 [facility] [address] [id number] [address] [place] [id number] Jul, Right hip pain M25.551 [facility] [address] [id number] [address] [place] [id number] Jul, Right hip pain M25.551 [facility] [address] [id number] [address] [place] [phone] Jul, Right hip pain M25.551 and N europathy G62.9 [place] [address] [facility] [id number] [address] [place] [id number] Jun, Right hip pain M25.551 [facility] [address] [id number] [address] [place] [id number] May, [place] [address] [facility] [id number] [address] [place] [phone] May, Type 2 diabetes mellitus wit h complication, without long-term current use of insulin E11.8 and Right hip pain M25.551 [place] [address] [facility] [id number] [address] [place] [id number] Apr, Type 2 diabetes mellitus wit h complication, without long-term current use of insulin E11.8 [place] [address] [id number] [address] [place] [id number] Apr, Type 2 diabetes mellitus wit h complication, without long-term current use of insulin E11.8 ; Right hip pain M25.551 ; Neuropathy G62.9 and Hypertriglyceridemia E78.1 [place] [address] [facility] [id number] [address] [place] [phone] March, Right hip pain M25.551 and N europathy G62.9 [place] [address] [id number] [address] [place] [id number] March, Right hip pain M25.551 and N europathy G62.9 [facility] [address] [facility] [id number] [address] [place] [id number] Feb, Right hip pain M25.551 [place] [address] [facility] [id number] [address] [place] [phone] Jan, Hypertriglyceridemia E78.1 [facility] [address] [place] [address] [id number] [address] [place] [id number] Jan, Right hip pain M25.551 [facility] [address] [place] [address] [id number] [address] [place] [phone] Jan, Hypertriglyceridemia E78.1 ; Dysuria R30.0 ; RLQ abdominal pain R10.31 and Right hip pain M25.551 [facility] [address] [place] [address] [id number] [address] [place] [phone] Dec, Right hip pain M25.551 [place] [address] [place] [id number] [place] [phone] Dec, Type 2 diabetes mellitus wit h complication, without long-term current use of insulin E11.8 ; Right hip pain M25.551 and Neuropathy G62.9 [place] [address] [id number] Nov, Right hip pain M25.551 [place] [address] [address] Nov, [place] [address] [id number] Oct, Right hip pain M25.551 [place] [address] [place] [id number] [address] [place] [address] Sep, [place] [address] [place] [id number] [place] [phone] Sep, Type 2 diabetes mellitus wit h complication, without long-term current use of insulin E11.8 and Right hip pain M25.551 [place] [address] [place] [id number] [address] [place] [id number] Sep, Neuropathy G62.9 [place] [address] [place] [id number] [place] [phone] Sep, Hypertriglyceridemia E78.1 [facility] [address] [id number] [address] [place] [phone] Aug, Type 2 diabetes mellitus wit h complication, without long-term current use of insulin E11.8 ; Right hip pain M25.551 ; Neuropathy G62.9 ; Pain of left foot M79.672 and Pain in right foot M79.671 [facility] [address] [facility] [id number] [address] [place] [phone] Aug, Type 2 diabetes mellitus wit h complication, without long-term current use of insulin E11.8 [facility] [address] [id number] [address] [place] [phone] Aug, Type 2 diabetes mellitus wit h complication, without long-term current use of insulin E11.8 ; Neuropathy G62.9 ; Right hip pain M25.551 ; Pain of left foot M79.672 and Pain in right foot M79.671 [facility] [address] [facility] [id number] [address] [place] [phone] Feb, [facility] [address] [id number] [address] [place] [phone] Feb, [facility] [address] [facility] [id number] [address] [place] [phone] March, [facility] [address] [id number] [address] [place] [phone] Feb, [facility] [address] [id number] [address] [place] [phone] Oct, [facility] [address] [id number] [address] [place] [phone] Oct, [facility] [address] [id number] [address] [place] [phone] Nov, [facility] [address] [id number] [address] [place] [phone] Oct, [facility] [address] [id number] [address] [place] [phone] Oct, [facility] [address] [facility] [id number] [address] [place] [phone] Oct, [facility] [address] [facility] [id number] [address] [place] [id number] Oct, IMMUNIZATIONS No Known Immunizations SOCIAL HISTORY Never Assessed REASON FOR VISIT Controlled Med Refill 01/18/18 PLAN OF CARE VITAL SIGNS MEDICATIONS Medication Instructions Dosage Frequency Start Date End Date Duration S tatus Percocet 7.5-325 MG Orally 4 times a day 1 tablet 6h Jan, 28 days Active RESULTS No Results PROCEDURES [...]
--- OUTSIDE RECORDS SUMMARY | 2020-04-07 22:49 | XMS REPORT ---
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 [id number] Problem Other chronic pain G89.29 Active 8 8000498 Problem Neuropathy G62.9 Active 531674828 Problem Type 2 diabetes mellitus wit h complication, without long-term current use of insulin E11.8 Active 65671310 Problem Right hip pain M25.551 Active 99164 [id number] Problem Hypertriglyceridemia E78.1 Active [id number] ALLERGIES No Information ENCOUNTERS Encounter Location Date Diagnosis [facility] [address] [facility] [id number] [address] [place] [phone] Jul, [facility] [address] [facility] [id number] [address] [place] [id number] May, Right hip pain M25.551 [facility] [address] [facility] [id number] [address] [place] [phone] May, [facility] [address] [facility] [id number] [address] [place] [phone] May, Hypertriglyceridemia E78.1 [facility] [address] [facility] [id number] [address] [place] [phone] Apr, Right hip pain M25.551 [facility] [address] [facility] [id number] [address] [place] [phone] Apr, Right hip pain M25.551 and N europathy G62.9 [facility] [address] [facility] [id number] [address] [place] [phone] March, Right hip pain M25.551 and N europathy G62.9 [facility] [address] [facility] [id number] [address] [place] [phone] Feb, Seasonal allergic rhinitis, unspecified trigger J30.2 [facility] [address] [facility] [id number] [address] [place] [phone] Feb, Neuropathy G62.9 [facility] [address] [facility] [id number] [address] [place] [address] Feb, Right hip pain M25.551 and N europathy G62.9 [facility] [address] [facility] [id number] [address] [place] [phone] Feb, Hypertriglyceridemia E78.1 [facility] [address] [facility] [id number] [address] [place] [address] Jan, Right hip pain M25.551 and T ype 2 diabetes mellitus with complication, without long-term current use of insulin E11.8 [facility] [address] [id number] [address] [place] [phone] Jan, Neuropathy G62.9 [facility] [address] [facility] [id number] [address] [place] [address] Jan, Right hip pain M25.551 [facility] [address] [facility] [id number] [address] [place] [address] Dec, Right hip pain M25.551 [facility] [address] [id number] [address] [place] [address] Nov, Right hip pain M25.551 [facility] [address] [facility] [id number] [address] [place] [phone] Oct, Right hip pain M25.551 [facility] [address] [facility] [id number] [address] [place] [address] Sep, Right hip pain M25.551 [place] [address] [id number] [address] [place] [phone] Aug, Right hip pain M25.551 [facility] [address] [facility] [id number] [address] [place] [phone] Aug, Type 2 diabetes mellitus wit h complication, without long-term current use of insulin E11.8 and Other chronic pain G89.29 [place] [address] [facility] [id number] [address] [place] [address] Jul, Right hip pain M25.551 [place] [address] [id number] [address] [place] [address] Jul, Right hip pain M25.551 [place] [address] [facility] [id number] [address] [place] [address] Jul, Right hip pain M25.551 and N europathy G62.9 [place] [address] [facility] [id number] [address] [place] [address] Jun, Right hip pain M25.551 [place] [address] [facility] [id number] [address] [place] [address] May, [place] [address] [place] [id number] [address] [place] [address] May, Type 2 diabetes mellitus wit h complication, without long-term current use of insulin E11.8 and Right hip pain M25.551 [place] [address] [facility] [id number] [address] [place] [address] Apr, Type 2 diabetes mellitus wit h complication, without long-term current use of insulin E11.8 [place] [address] [facility] [id number] [address] [place] [address] Apr, Type 2 diabetes mellitus wit h complication, without long-term current use of insulin E11.8 ; Right hip pain M25.551 ; Neuropathy G62.9 and Hypertriglyceridemia E78.1 [place] [address] [place] [id number] [address] [place] [phone] March, Right hip pain M25.551 and N europathy G62.9 [facility] [address] [id number] [address] [place] [address] March, Right hip pain M25.551 and N europathy G62.9 [facility] [address] [id number] [address] [place] [address] Feb, Right hip pain M25.551 [facility] [address] [id number] [address] [place] [address] Jan, Hypertriglyceridemia E78.1 [place] [address] [facility] [id number] [address] [place] [address] Jan, Right hip pain M25.551 [place] [address] [facility] [id number] [address] [place] [id number] Jan, Hypertriglyceridemia E78.1 ; Dysuria R30.0 ; RLQ abdominal pain R10.31 and Right hip pain M25.551 [place] [address] [facility] [id number] [address] [place] [address] Dec, Right hip pain M25.551 [facility] [address] [facility] [id number] [address] [place] [address] Dec, Type 2 diabetes mellitus wit h complication, without long-term current use of insulin E11.8 ; Right hip pain M25.551 and Neuropathy G62.9 [facility] [address] [id number] [address] [place] [address] Nov, Right hip pain M25.551 [place] [address] [id number] [address] [place] [address] Nov, [facility] [address] [facility] [id number] [address] [place] [address] Oct, Right hip pain M25.551 [facility] [address] [facility] [id number] [address] [place] [phone] Sep, [facility] [address] [facility] [id number] [address] [place] [id number] Sep, Type 2 diabetes mellitus wit h complication, without long-term current use of insulin E11.8 and Right hip pain M25.551 [facility] [address] [place] [id number] [address] [place] [phone] Sep, Neuropathy G62.9 [place] [address] [place] [id number] [place] [address] Sep, Hypertriglyceridemia E78.1 [place] [address] [place] [id number] [place] [address] Aug, Type 2 diabetes mellitus wit h complication, without long-term current use of insulin E11.8 [place] [address] [place] [id number] [place] [address] Aug, Type 2 diabetes mellitus wit h complication, without long-term current use of insulin E11.8 ; Right hip pain M25.551 ; Neuropathy G62.9 ; Pain of left foot M79.672 and Pain in right foot M79.671 [place] [address] [address] Aug, Type 2 diabetes mellitus wit h complication, without long-term current use of insulin E11.8 ; Neuropathy G62.9 ; Right hip pain M25.551 ; Pain of left foot M79.672 and Pain in right foot M79.671 [place] [address] [place] [id number] [address] [place] [address] Feb, [place] [address] [place] [id number] [address] [place] [phone] Feb, [place] [address] [place] [id number] [address] [place] [phone] March, [place] [address] [place] [id number] [address] [place] [phone] Feb, [facility] [address] [id number] [address] [place] [phone] Oct, [facility] [address] [id number] [address] [place] [phone] Oct, [facility] [address] [id number] [address] [place] [phone] Nov, [facility] [address] [facility] [id number] [address] [place] [phone] Oct, [facility] [address] [id number] [address] [place] [phone] Oct, [facility] [address] [facility] [id number] [address] [place] [phone] Oct, [facility] [address] [facility] [id number] [address] [place] [phone] Oct, IMMUNIZATIONS No Known Immunizations SOCIAL HISTORY Never Assessed REASON FOR VISIT Controlled Med Refill 04/12/18 PLAN OF CARE VITAL SIGNS MEDICATIONS Medication Instructions Dosage Frequency Start Date End Date Duration S tatus Percocet 7.5-325 MG Orally 4 times a day 1 tablet 6h Apr, 28 days Active Lyrica 150 MG Orally 2 times a day 2 capsules 12h Aug, 28 days Active RESULTS No Results PROCEDURES [...]
--- OUTSIDE RECORDS SUMMARY | 2020-04-07 22:49 | XMS REPORT ---
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 [address] [facility] [id number] [address] [place] [phone] May, Hypertriglyceridemia E78.1 [place] [address] [facility] [id number] [address] [place] [address] Apr, Right hip pain M25.551 [facility] [address] [place] [id number] [address] [place] [phone] Apr, Right hip pain M25.551 and N europathy G62.9 [facility] [address] [facility] [id number] [address] [place] [phone] March, Right hip pain M25.551 and N europathy G62.9 [facility] [address] [facility] [id number] [address] [place] [address] Feb, Seasonal allergic rhinitis, unspecified trigger J30.2 [facility] [address] [facility] [id number] [address] [place] [address] Feb, Neuropathy G62.9 [facility] [address] [id number] [address] [place] [address] Feb, Right hip pain M25.551 and N europathy G62.9 [facility] [address] [id number] [address] [place] [address] Feb, Hypertriglyceridemia E78.1 [facility] [address] [id number] [address] [place] [address] Jan, Right hip pain M25.551 and T ype 2 diabetes mellitus with complication, without long-term current use of insulin E11.8 [facility] [address] [id number] [address] [place] [address] Jan, Neuropathy G62.9 [facility] [address] [id number] [address] [place] [address] Jan, Right hip pain M25.551 [facility] [address] [id number] [address] [place] [phone] Dec, Right hip pain M25.551 [facility] [address] [id number] [address] [place] [address] Nov, Right hip pain M25.551 [facility] [address] [id number] [address] [place] [address] Oct, Right hip pain M25.551 [facility] [address] [id number] [address] [place] [address] Sep, Right hip pain M25.551 [facility] [address] [id number] [address] [place] [address] Aug, Right hip pain M25.551 [facility] [address] [facility] [id number] [address] [place] [phone] 09 Aug, 2017 Type 2 diabetes mellitus wit h complication, without long-term current use of insulin E11.8 and Other chronic pain G89.29 [facility] [address] [id number] [address] [place] [address] Jul, Right hip pain M25.551 [place] [address] [id number] [address] [place] [address] Jul, Right hip pain M25.551 [place] [address] [facility] [id number] [address] [place] [address] Jul, Right hip pain M25.551 and N europathy G62.9 [place] [address] [id number] [address] [place] [id number] Jun, Right hip pain M25.551 [place] [address] [facility] [id number] [address] [place] [address] May, [place] [address] [facility] [id number] [address] [place] [id number] May, Type 2 diabetes mellitus wit h complication, without long-term current use of insulin E11.8 and Right hip pain M25.551 [place] [address] [facility] [id number] [address] [place] [phone] Apr, Type 2 diabetes mellitus wit h complication, without long-term current use of insulin E11.8 [place] [address] [facility] [id number] [address] [place] [address] Apr, Type 2 diabetes mellitus wit h complication, without long-term current use of insulin E11.8 ; Right hip pain M25.551 ; Neuropathy G62.9 and Hypertriglyceridemia E78.1 [place] [address] [id number] [address] [place] [address] March, Right hip pain M25.551 and N europathy G62.9 [place] [address] [facility] [id number] [address] [place] [address] March, Right hip pain M25.551 and N europathy G62.9 [place] [address] [facility] [id number] [address] [place] [id number] Feb, Right hip pain M25.551 [facility] [address] [id number] [address] [place] [address] Jan, Hypertriglyceridemia E78.1 [facility] [address] [id number] [address] [place] [phone] Jan, Right hip pain M25.551 [facility] [address] [id number] [address] [place] [address] Jan, Hypertriglyceridemia E78.1 ; Dysuria R30.0 ; RLQ abdominal pain R10.31 and Right hip pain M25.551 [facility] [address] [id number] [address] [place] [address] Dec, Right hip pain M25.551 [facility] [address] [facility] [id number] [address] [place] [address] Dec, Type 2 diabetes mellitus wit h complication, without long-term current use of insulin E11.8 ; Right hip pain M25.[address] [facility] [address] [id number] [address] [place] [address] Nov, Right hip pain M25.551 [facility] [address] [id number] [address] [place] [id number] Nov, [facility] [address] [id number] [address] [place] [address] Oct, Right hip pain M25.551 [facility] [address] [id number] [address] [place] [phone] Sep, [facility] [address] [facility] [id number] [address] [place] [id number] Sep, Type 2 diabetes mellitus wit h complication, without long-term current use of insulin E11.8 and Right hip pain M25.551 [facility] [address] [facility] [id number] [address] [place] [address] Sep, Neuropathy G62.9 [facility] [address] [id number] [address] [place] [address] Sep, Hypertriglyceridemia E78.1 [facility] [address] [id number] [address] [place] [address] Aug, Type 2 diabetes mellitus wit h complication, without long-term current use of insulin E11.8 ; Right hip pain M25.551 ; Neuropathy G62.9 ; Pain of left foot M79.672 and Pain in right foot M79.671 [facility] [address] [id number] [address] [place] [id number] Aug, Type 2 diabetes mellitus wit h complication, without long-term current use of insulin E11.8 [facility] [address] [facility] [id number] [address] [place] [phone] 17 Aug, 2016 Type 2 diabetes mellitus wit h complication, without long-term current use of insulin E11.8 ; Neuropathy G62.9 ; Right hip pain M25.551 ; Pain of left foot M79.672 and Pain in right foot M79.671 [facility] [address] [facility] [id number] [address] [place] [address] Feb, [facility] [address] [id number] [address] [place] [phone] Feb, [facility] [address] [id number] [address] [place] [id number] March, [facility] [address] [id number] [address] [place] [id number] Feb, [facility] [address] [id number] [address] [place] [id number] Oct, [facility] [address] [id number] [address] [place] [id number] Oct, [facility] [address] [facility] [id number] [address] [place] [phone] Nov, [facility] [address] [facility] [id number] [address] [place] [phone] Oct, [facility] [address] [facility] [id number] [address] [place] [phone] Oct, [facility] [address] [facility] [id number] [address] [place] [phone] Oct, [facility] [address] [facility] [id number] [address] [place] [phone] Oct, IMMUNIZATIONS No Known Immunizations SOCIAL HISTORY Never Assessed REASON FOR VISIT cough/congestion for a week. [email or web address] PLAN OF CARE Activity Details Follow Up prn Reason: VITAL SIGNS Height 69.75 in 2018-02-19 Weight 234 lbs 2018-02-19 Temperature 98.3 degrees Fahrenheit 2018-02-19 Heart Rate 80 bpm 2018-02-19 Respiratory Rate 20 2018-02-19 BMI 33.81 kg/m2 2018-02-19 Blood pressure systolic 126 mmHg 2018-02-19 Blood pressure diastolic 76 mmHg 2018-02-19 MEDICATIONS Medication Instructions Dosage Frequency Start Date End Date Duration S tatus Victoza 18 MG/3ML Subcutaneous Once a day 1.8 mg 24h Active Pioglitazone HCl 45 MG Orally Once a day 1 tablet 24h Jan, 30 day(s) Active GlipiZIDE ER 10 MG Orally Once a day in AM 1 tablet Aug, 90 days Active Lisinopril 5 MG Orally Once a day 1 tablet 24h 23 Apr, 2017 Active Zetia 10 mg Orally Once a day 1 tablet 24h Jan, 90 d ays Active MetFORMIN HCl ER 500 MG Orally 2 times a day 2 tablets 12h Aug, 016 90 Active Blood Glucose Monitor System w/Device subcutaneously 2 times a day test blood sugar 12h Active Lyrica 150 MG Orally 2 times a day 2 capsules 12h Aug, 28 days Active Percocet 7.5-325 MG Orally 4 times a day 1 tablet 6h Feb, 28 days Active Blood Glucose Test - subcutaneously 2 times a day test blood sugar 12h Active Lipitor 80 MG Orally Once a day 1 tablet 24h 90 days Active PredniSONE 20 MG Orally Once a day 2 tablet 24h Feb, Feb, 5 days Active RESULTS No Results PROCEDURES No [...]
--- OUTSIDE RECORDS SUMMARY | 2020-04-07 22:49 | XMS REPORT ---
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 Active [id number] Problem Other chronic pain G89.29 Active 8 5971888 Problem Neuropathy G62.9 Active 819263906 Problem Type 2 diabetes mellitus wit h complication, without long-term current use of insulin E11.8 Active 94418022 Problem Right hip pain M25.551 Active 06565 1709734210 Problem Hypertriglyceridemia E78.1 Active 600506675 ALLERGIES No Known Allergies ENCOUNTERS Encounter Location Date Diagnosis [facility] [address] [place] [id number] [address] [place] [address] May, Hypertriglyceridemia E78.1 [facility] [address] [place] [address] [id number] [address] [place] [address] Apr, Right hip pain M25.551 [facility] [address] [place] [place] [id number] [address] [place] [address] Apr, Right hip pain M25.551 and N europathy G62.9 [facility] [address] [facility] [id number] [address] [place] [address] March, Right hip pain M25.551 and N europathy G62.9 [facility] [address] [facility] [id number] [address] [place] [address] Feb, Seasonal allergic rhinitis, unspecified trigger J30.2 [facility] [address] [place] [place] [id number] [address] [place] [address] Feb, Neuropathy G62.9 [facility] [address] [id number] [address] [place] [address] Feb, Right hip pain M25.551 and N europathy G62.9 [facility] [address] [id number] [address] [place] [address] Feb, Hypertriglyceridemia E78.1 [facility] [address] [id number] [address] [place] [address] Jan, Right hip pain M25.551 and T ype 2 diabetes mellitus with complication, without long-term current use of insulin E11.8 [facility] [address] [id number] [address] [place] [address] Jan, Neuropathy G62.9 [facility] [address] [id number] [address] [place] [address] Jan, Right hip pain M25.551 [facility] [address] [id number] [address] [place] [address] Dec, Right hip pain M25.551 [facility] [address] [id number] [address] [place] [address] Nov, Right hip pain M25.551 [facility] [address] [id number] [address] [place] [address] Oct, Right hip pain M25.551 [facility] [address] [id number] [address] [place] [address] Sep, Right hip pain M25.551 [facility] [address] [id number] [address] [place] [address] Aug, Right hip pain M25.551 [facility] [address] [facility] [id number] [address] [place] [address] Aug, Type 2 diabetes mellitus wit h complication, without long-term current use of insulin E11.8 and Other chronic pain G89.29 [facility] [address] [id number] [address] [place] [address] Jul, Right hip pain M25.551 [facility] [address] [id number] [address] [place] [address] Jul, Right hip pain M25.551 [place] [address] [facility] [id number] [address] [place] [address] Jul, Right hip pain M25.551 and N europathy G62.9 [facility] [address] [id number] [address] [place] [address] Jun, Right hip pain M25.551 [place] [address] [id number] [address] [place] [address] May, [place] [address] [facility] [id number] [address] [place] [address] May, Type 2 diabetes mellitus wit h complication, without long-term current use of insulin E11.8 and Right hip pain M25.551 [place] [address] [id number] [address] [place] [address] Apr, Type 2 diabetes mellitus wit h complication, without long-term current use of insulin E11.8 [place] [address] [facility] [id number] [address] [place] [address] Apr, Type 2 diabetes mellitus wit h complication, without long-term current use of insulin E11.8 ; Right hip pain M25.551 ; Neuropathy G62.9 and Hypertriglyceridemia E78.1 [place] [address] [id number] [address] [place] [address] March, Right hip pain M25.551 and N europathy G62.9 [place] [address] [facility] [id number] [address] [place] [address] March, Right hip pain M25.551 and N europathy G62.9 [place] [address] [facility] [id number] [address] [place] [address] Feb, Right hip pain M25.551 [facility] [address] [id number] [address] [place] [address] Jan, Hypertriglyceridemia E78.1 [facility] [address] [facility] [id number] [address] [place] [address] Jan, Right hip pain M25.551 [facility] [address] [facility] [id number] [address] [place] [address] Jan, Hypertriglyceridemia E78.1 ; Dysuria R30.0 ; RLQ abdominal pain R10.31 and Right hip pain M25.551 [facility] [address] [id number] [address] [place] [address] Dec, Right hip pain M25.551 [facility] [address] [facility] [id number] [address] [place] [address] Dec, Type 2 diabetes mellitus wit h complication, without long-term current use of insulin E11.8 ; Right hip pain M25.551 and Neuropathy G62.9 [facility] [address] [facility] [id number] [address] [place] [address] Nov, Right hip pain M25.551 [facility] [address] [facility] [id number] [address] [place] [address] Nov, [facility] [address] [facility] [id number] [address] [place] [address] Oct, Right hip pain M25.551 [facility] [address] [id number] [address] [place] [address] Sep, [facility] [address] [facility] [id number] [address] [place] [phone] Sep, Type 2 diabetes mellitus wit h complication, without long-term current use of insulin E11.8 and Right hip pain M25.551 [facility] [address] [facility] [id number] [address] [place] [address] Sep, Neuropathy G62.9 [facility] [address] [facility] [id number] [address] [place] [address] Sep, Hypertriglyceridemia E78.1 [facility] [address] [facility] [id number] [address] [place] [phone] Aug, Type 2 diabetes mellitus wit h complication, without long-term current use of insulin E11.8 [facility] [address] [facility] [id number] [address] [place] [address] Aug, Type 2 diabetes mellitus wit h complication, without long-term current use of insulin E11.8 ; Right hip pain M25.551 ; Neuropathy G62.9 ; Pain of left foot M79.672 and Pain in right foot M79.671 [facility] [address] [facility] [id number] [address] [place] [address] Aug, Type 2 diabetes mellitus wit h complication, without long-term current use of insulin E11.8 ; Neuropathy G62.9 ; Right hip pain M25.551 ; Pain of left foot M79.672 and Pain in right foot M79.671 [facility] [address] [facility] [id number] [address] [place] [address] Feb, [facility] [address] [facility] [id number] [address] [place] [address] Feb, [facility] [address] [facility] [id number] [address] [place] [phone] March, [facility] [address] [id number] [address] [place] [phone] Feb, [facility] [address] [id number] [address] [place] [phone] Oct, [facility] [address] [facility] [id number] [address] [place] [phone] Oct, [facility] [address] [facility] [id number] [address] [place] [phone] Nov, [facility] [address] [facility] [id number] [address] [place] [phone] Oct, [facility] [address] [facility] [id number] [address] [place] [phone] Oct, [facility] [address] [facility] [id number] [address] [place] [phone] Oct, [facility] [address] [facility] [id number] [address] [place] [address] Oct, IMMUNIZATIONS No Known Immunizations SOCIAL HISTORY Never Assessed REASON FOR VISIT Pain management (chronic)- Rodney Arriaga RN PLAN OF CARE Activity Details Follow Up 4 Weeks Reason:DM VITAL SIGNS Height 69.75 in 2018-01-24 Weight 236 lbs 2018-01-24 Temperature 98.0 degrees Fahrenheit 2018-01-24 Heart Rate 72 bpm 2018-01-24 Respiratory Rate 18 2018-01-24 BMI 34.10 kg/m2 2018-01-24 Blood pressure systolic 140 mmHg 2018-01-24 Blood pressure diastolic 88 mmHg 2018-01-24 MEDICATIONS Medication Instructions Dosage Frequency Start Date End Date Duration S tatus GlipiZIDE ER 10 MG Orally Once a day in AM 1 tablet Aug, 90 days Active Pioglitazone HCl 45 MG Orally Once a day 1 tablet 24h Jan, 30 day(s) Active Lyrica 150 MG Orally 2 times a day 2 capsules 12h Aug, 28 days Active Zetia 10 mg Orally Once a day 1 tablet 24h Jan, 90 d ays Active Blood Glucose Test - subcutaneously 2 times a day test blood sugar 12h Active Percocet 7.5-325 MG Orally 4 times a day 1 tablet 6h Jan, 28 days Active Victoza 18 MG/3ML Subcutaneous Once a day 1.8 mg 24h Active MetFORMIN HCl ER 500 MG Orally 2 times a day 2 tablets 12h Aug, 016 90 Active Blood Glucose Monitor System w/Device subcutaneously 2 times a day test blood sugar 12h Active Lisinopril 5 MG Orally Once a day 1 tablet 24h 23 Apr, 2017 Active Lipitor 40 mg Orally Once a day 1 tablet 24h 90 Active RESULTS No Results PROCEDURES Procedure Date Ordered Result Body Site GLYCATED HEMOGLOBIN TEST January 24, 2018 DRUG TEST PRSMV CHEM ANLYZR January 24, 2018 VENIPUNCT, ROUTINE* January 24, 2018 COMPREHEN METABOLIC PANEL January 24, 2018 DRUG SCREEN AMPHETAMINES 11/09January 24, 2018 LIPID PANEL January 24, 2018 INSTRUCTIONS MEDICATIONS ADMINISTERED No Known [...]
--- OUTSIDE RECORDS SUMMARY | 2020-04-07 22:49 | XMS REPORT ---
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 [id number] Problem Other chronic pain G89.29 Active 8 2549900 Problem Neuropathy G62.9 Active 442879876 Problem Type 2 diabetes mellitus wit h complication, without long-term current use of insulin E11.8 Active 07133765 Problem Right hip pain M25.551 Active 20670 2828284233 Problem Hypertriglyceridemia E78.1 Active 838300736 ALLERGIES No Information ENCOUNTERS Encounter Location Date Diagnosis [facility] [address] [facility] [id number] [address] [place] [phone] Jul, [facility] [address] [facility] [id number] [address] [place] [address] May, Right hip pain M25.551 [facility] [address] [facility] [id number] [address] [place] [address] May, [facility] [address] [facility] [id number] [address] [place] [address] May, Hypertriglyceridemia E78.1 [facility] [address] [facility] [id number] [address] [place] [address] Apr, Right hip pain M25.551 [facility] [address] [facility] [id number] [address] [place] [address] Apr, Right hip pain M25.551 and N europathy G62.9 [facility] [address] [facility] [id number] [address] [place] [address] March, Right hip pain M25.551 and N europathy G62.[address] [facility] [address] [facility] [id number] [address] [place] [address] Feb, Seasonal allergic rhinitis, unspecified trigger J30.2 [facility] [address] [facility] [id number] [address] [place] [address] Feb, Neuropathy G62.9 [facility] [address] [facility] [id number] [address] [place] [address] Feb, Right hip pain M25.551 and N europathy G62.9 [facility] [address] [facility] [id number] [address] [place] [phone] Feb, Hypertriglyceridemia E78.1 [facility] [address] [facility] [id number] [address] [place] [address] Jan, Right hip pain M25.551 and T ype 2 diabetes mellitus with complication, without long-term current use of insulin E11.8 [facility] [address] [id number] [address] [place] [address] Jan, Neuropathy G62.9 [facility] [address] [facility] [id number] [address] [place] [address] Jan, Right hip pain M25.551 [facility] [address] [facility] [id number] [address] [place] [address] Dec, Right hip pain M25.551 [facility] [address] [id number] [address] [place] [address] Nov, Right hip pain M25.551 [facility] [address] [facility] [id number] [address] [place] [address] Oct, Right hip pain M25.551 [facility] [address] [facility] [id number] [address] [place] [address] Sep, Right hip pain M25.551 [place] [address] [id number] [address] [place] [address] Aug, Right hip pain M25.551 [facility] [address] [facility] [id number] [address] [place] [address] Aug, Type 2 diabetes mellitus wit h complication, without long-term current use of insulin E11.8 and Other chronic pain G89.29 [place] [address] [facility] [id number] [address] [place] [address] Jul, Right hip pain M25.551 [place] [address] [id number] [address] [place] [address] Jul, Right hip pain M25.551 [place] [address] [facility] [id number] [address] [place] [address] Jul, Right hip pain M25.551 and N europathy G62.9 [place] [address] [facility] [id number] [address] [place] [address] Jun, Right hip pain M25.551 [place] [address] [facility] [id number] [address] [place] [address] May, [place] [address] [place] [id number] [address] [place] [address] May, Type 2 diabetes mellitus wit h complication, without long-term current use of insulin E11.8 and Right hip pain M25.551 [place] [address] [facility] [id number] [address] [place] [address] Apr, Type 2 diabetes mellitus wit h complication, without long-term current use of insulin E11.8 [place] [address] [facility] [id number] [address] [place] [address] Apr, Type 2 diabetes mellitus wit h complication, without long-term current use of insulin E11.8 ; Right hip pain M25.551 ; Neuropathy G62.9 and Hypertriglyceridemia E78.1 [place] [address] [place] [id number] [address] [place] [address] March, Right hip pain M25.551 and N europathy G62.9 [facility] [address] [id number] [address] [place] [address] March, Right hip pain M25.551 and N europathy G62.9 [facility] [address] [id number] [address] [place] [address] Feb, Right hip pain M25.551 [facility] [address] [id number] [address] [place] [address] Jan, Hypertriglyceridemia E78.1 [place] [address] [facility] [id number] [address] [place] [address] Jan, Right hip pain M25.551 [place] [address] [facility] [id number] [address] [place] [address] Jan, Hypertriglyceridemia E78.1 ; Dysuria R30.0 ; RLQ abdominal pain R10.31 and Right hip pain M25.551 [place] [address] [facility] [id number] [address] [place] [address] Dec, Right hip pain M25.551 [facility] [address] [facility] [id number] [address] [place] [address] Dec, Type 2 diabetes mellitus wit h complication, without long-term current use of insulin E11.8 ; Right hip pain M25.551 and Neuropathy G62.9 [facility] [address] [id number] [address] [place] [address] Nov, Right hip pain M25.551 [place] [address] [id number] [address] [place] [address] Nov, [facility] [address] [facility] [id number] [address] [place] [address] Oct, Right hip pain M25.551 [facility] [address] [facility] [id number] [address] [place] [address] Sep, [place] [address] [place] [id number] [place] [address] Sep, Type 2 diabetes mellitus wit h complication, without long-term current use of insulin E11.8 and Right hip pain M25.551 [place] [address] [address] Sep, Neuropathy G62.9 [place] [address] [address] Sep, Hypertriglyceridemia E78.1 [place] [address] [address] Aug, Type 2 diabetes mellitus wit h complication, without long-term current use of insulin E11.8 ; Right hip pain M25.551 ; Neuropathy G62.9 ; Pain of left foot M79.672 and Pain in right foot M79.671 [place] [address] [address] Aug, Type 2 diabetes mellitus wit h complication, without long-term current use of insulin E11.8 [place] [address] [address] Aug, Type 2 diabetes mellitus wit h complication, without long-term current use of insulin E11.8 ; Neuropathy G62.9 ; Right hip pain M25.551 ; Pain of left foot M79.672 and Pain in right foot M79.671 [place] [address] [address] Feb, [place] [address] [address] Feb, [place] [address] [id number] March, [place] [address] [id number] Feb, [place] [address] [id number] [address] [place] [phone] Oct, [facility] [address] [id number] [address] [place] [phone] Oct, [facility] [address] [id number] [address] [place] [address] Nov, [facility] [address] [facility] [id number] [address] [place] [address] Oct, [facility] [address] [id number] [address] [place] [address] Oct, [facility] [address] [facility] [id number] [address] [place] [phone] Oct, [facility] [address] [facility] [id number] [address] [place] [address] Oct, IMMUNIZATIONS No Known Immunizations SOCIAL HISTORY Never Assessed REASON FOR VISIT Controlled Med Refill 03/15/18 PLAN OF CARE VITAL SIGNS MEDICATIONS Medication Instructions Dosage Frequency Start Date End Date Duration S tatus Percocet 7.5-325 MG Orally 4 times a day 1 tablet 6h March, 28 days Active Lyrica 150 MG Orally [...]
--- OUTSIDE RECORDS SUMMARY | 2020-04-07 22:49 | XMS REPORT ---
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 53464727670847426 Problem Other chronic pain G89.29 Active 8 4834134 Problem Neuropathy G62.9 Active 628235089 Problem Type 2 diabetes mellitus wit h complication, without long-term current use of insulin E11.8 Active 26602925 Problem Right hip pain M25.551 Active 18985 2534224374 Problem Hypertriglyceridemia E78.1 Active 387072539 ALLERGIES No Information ENCOUNTERS Encounter Location Date Diagnosis [facility] [address] [place] [address] [id number] [address] [place] [address] May, Hypertriglyceridemia E78.1 [facility] [address] [place] [address] [id number] [address] [place] [address] Apr, Right hip pain M25.551 [facility] [address] [place] [id number] [address] [place] [address] Apr, Right hip pain M25.551 and N europathy G62.9 [facility] [address] [facility] [id number] [address] [place] [address] March, Right hip pain M25.551 and N europathy G62.9 [facility] [address] [facility] [id number] [address] [place] [address] Feb, Seasonal allergic rhinitis, unspecified trigger J30.2 [facility] [address] [facility] [id number] [address] [place] [address] Feb, Neuropathy G62.9 [facility] [address] [id number] [address] [place] [address] Feb, Right hip pain M25.551 and N europathy G62.9 [facility] [address] [id number] [address] [place] [address] Feb, Hypertriglyceridemia E78.1 [facility] [address] [id number] [address] [place] [address] Jan, Right hip pain M25.551 and T ype 2 diabetes mellitus with complication, without long-term current use of insulin E11.8 [facility] [address] [id number] [address] [place] [address] Jan, Neuropathy G62.9 [facility] [address] [id number] [address] [place] [address] Jan, Right hip pain M25.551 [facility] [address] [id number] [address] [place] [address] Dec, Right hip pain M25.551 [facility] [address] [id number] [address] [place] [address] Nov, Right hip pain M25.551 [facility] [address] [id number] [address] [place] [address] Oct, Right hip pain M25.551 [facility] [address] [id number] [address] [place] [address] Sep, Right hip pain M25.551 [facility] [address] [id number] [address] [place] [address] Aug, Right hip pain M25.551 [facility] [address] [facility] [id number] [address] [place] [phone] Aug, Type 2 diabetes mellitus wit h complication, without long-term current use of insulin E11.8 and Other chronic pain G89.29 [facility] [address] [id number] [address] [place] [address] Jul, Right hip pain M25.551 [place] [address] [id number] [address] [place] [address] Jul, Right hip pain M25.551 [place] [address] [facility] [id number] [address] [place] [address] Jul, Right hip pain M25.551 and N europathy G62.9 [place] [address] [id number] [address] [place] [id number] Jun, Right hip pain M25.551 [place] [address] [facility] [id number] [address] [place] [address] May, [place] [address] [facility] [id number] [address] [place] [address] May, Type 2 diabetes mellitus wit h complication, without long-term current use of insulin E11.8 and Right hip pain M25.551 [place] [address] [facility] [id number] [address] [place] [address] Apr, Type 2 diabetes mellitus wit h complication, without long-term current use of insulin E11.8 [place] [address] [facility] [id number] [address] [place] [address] Apr, Type 2 diabetes mellitus wit h complication, without long-term current use of insulin E11.8 ; Right hip pain M25.551 ; Neuropathy G62.9 and Hypertriglyceridemia E78.1 [place] [address] [id number] [address] [place] [address] March, Right hip pain M25.551 and N europathy G62.9 [place] [address] [facility] [id number] [address] [place] [address] March, Right hip pain M25.551 and N europathy G62.9 [place] [address] [facility] [id number] [address] [place] [address] Feb, Right hip pain M25.551 [facility] [address] [id number] [address] [place] [address] Jan, Hypertriglyceridemia E78.1 [facility] [address] [facility] [id number] [address] [place] [address] Jan, Right hip pain M25.551 [facility] [address] [facility] [id number] [address] [place] [address] Jan, Hypertriglyceridemia E78.1 ; Dysuria R30.0 ; RLQ abdominal pain R10.31 and Right hip pain M25.551 [facility] [address] [id number] [address] [place] [address] Dec, Right hip pain M25.551 [facility] [address] [facility] [id number] [address] [place] [address] Dec, Type 2 diabetes mellitus wit h complication, without long-term current use of insulin E11.8 ; Right hip pain M25.551 and Neuropathy G62.9 [facility] [address] [id number] [address] [place] [address] Nov, Right hip pain M25.551 [facility] [address] [id number] [address] [place] [address] Nov, [facility] [address] [id number] [address] [place] [address] Oct, Right hip pain M25.551 [facility] [address] [id number] [address] [place] [phone] Sep, [facility] [address] [facility] [id number] [address] [place] [address] Sep, Type 2 diabetes mellitus wit h complication, without long-term current use of insulin E11.8 and Right hip pain M25.551 [facility] [address] [facility] [id number] [address] [place] [address] Sep, Neuropathy G62.9 [facility] [address] [facility] [id number] [address] [place] [address] Sep, Hypertriglyceridemia E78.1 [facility] [address] [facility] [id number] [address] [place] [address] Aug, Type 2 diabetes mellitus wit h complication, without long-term current use of insulin E11.8 [facility] [address] [facility] [id number] [address] [place] [address] Aug, Type 2 diabetes mellitus wit h complication, without long-term current use of insulin E11.8 ; Right hip pain M25.551 ; Neuropathy G62.9 ; Pain of left foot M79.672 and Pain in right foot M79.671 [facility] [address] [facility] [id number] [address] [place] [address] Aug, Type 2 diabetes mellitus wit h complication, without long-term current use of insulin E11.8 ; Neuropathy G62.9 ; Right hip pain M25.551 ; Pain of left foot M79.672 and Pain in right foot M79.671 [facility] [address] [facility] [id number] [address] [place] [address] Feb, [facility] [address] [id number] [address] [place] [phone] Feb, [facility] [address] [facility] [id number] [address] [place] [address] March, [facility] [address] [id number] [address] [place] [phone] Feb, [facility] [address] [id number] [address] [place] [address] Oct, [facility] [address] [id number] [address] [place] [address] Oct, [facility] [address] [facility] [id number] [address] [place] [address] Nov, [facility] [address] [id number] [address] [place] [phone] Oct, [facility] [address] [facility] [id number] [address] [place] [address] Oct, [facility] [address] [facility] [id number] [address] [place] [address] Oct, [facility] [address] [facility] [id number] [address] [place] [address] Oct, IMMUNIZATIONS No Known Immunizations SOCIAL HISTORY Never Assessed REASON FOR VISIT Controlled Med Refill 02/15/18 PLAN OF CARE VITAL SIGNS MEDICATIONS Medication Instructions Dosage Frequency Start Date End Date Duration S tatus Percocet 7.5-325 MG Orally 4 times a day 1 tablet 6h Feb, 28 days Active Lyrica 150 MG Orally [...]
--- OUTSIDE RECORDS SUMMARY | 2020-04-07 22:49 | XMS REPORT ---
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 29213936274402643 Problem Other chronic pain G89.29 Active 8 2718785 Problem Neuropathy G62.9 Active 687943234 Problem Type 2 diabetes mellitus wit h complication, without long-term current use of insulin E11.8 Active 83907070 Problem Right hip pain M25.551 Active 42632 5916020739 Problem Hypertriglyceridemia E78.1 Active 660050975 ALLERGIES No Information ENCOUNTERS Encounter Location Date Diagnosis [facility] [address] [facility] [id number] [address] [place] [phone] Jul, [place] [address] [facility] [id number] [address] [place] [address] Jun, Right hip pain M25.551 [facility] [address] [facility] [id number] [address] [place] [address] May, Right hip pain M25.551 [facility] [address] [facility] [id number] [address] [place] [address] May, [facility] [address] [facility] [id number] [address] [place] [address] May, Hypertriglyceridemia E78.1 [facility] [address] [facility] [id number] [address] [place] [address] Apr, Right hip pain M25.551 [facility] [address] [facility] [id number] [address] [place] [address] Apr, Right hip pain M25.551 and N europathy G62.9 [facility] [address] [id number] [address] [place] [address] March, Right hip pain M25.551 and N europathy G62.9 [facility] [address] [facility] [id number] [address] [place] [address] Feb, Seasonal allergic rhinitis, unspecified trigger J30.2 [facility] [address] [id number] [address] [place] [address] Feb, Neuropathy G62.9 [facility] [address] [facility] [id number] [address] [place] [address] Feb, Right hip pain M25.551 and N europathy G62.9 [facility] [address] [facility] [id number] [address] [place] [address] Feb, Hypertriglyceridemia E78.1 [facility] [address] [facility] [id number] [address] [place] [address] Jan, Right hip pain M25.551 and T ype 2 diabetes mellitus with complication, without long-term current use of insulin E11.8 [facility] [address] [facility] [id number] [address] [place] [address] Jan, Neuropathy G62.9 [facility] [address] [facility] [id number] [address] [place] [phone] Jan, Right hip pain M25.551 [facility] [address] [id number] [address] [place] [address] Dec, Right hip pain M25.551 [facility] [address] [facility] [id number] [address] [place] [address] Nov, Right hip pain M25.551 [facility] [address] [facility] [id number] [address] [place] [address] Oct, Right hip pain M25.551 [place] [address] [id number] [address] [place] [phone] Sep, Right hip pain M25.551 [facility] [address] [id number] [address] [place] [address] Aug, Right hip pain M25.551 [facility] [address] [id number] [address] [place] [address] Aug, Type 2 diabetes mellitus wit h complication, without long-term current use of insulin E11.8 and Other chronic pain G89.29 [facility] [address] [id number] [address] [place] [address] Jul, Right hip pain M25.551 [facility] [address] [id number] [address] [place] [address] Jul, Right hip pain M25.551 [facility] [address] [id number] [address] [place] [address] Jul, Right hip pain M25.551 and N europathy G62.9 [facility] [address] [id number] [address] [place] [address] Jun, Right hip pain M25.551 [facility] [address] [id number] [address] [place] [address] May, [facility] [address] [id number] [address] [place] [address] May, Type 2 diabetes mellitus wit h complication, without long-term current use of insulin E11.8 and Right hip pain M25.551 [facility] [address] [id number] [address] [place] [address] Apr, Type 2 diabetes mellitus wit h complication, without long-term current use of insulin E11.8 [facility] [address] [id number] [address] [place] [address] Apr, Type 2 diabetes mellitus wit h complication, without long-term current use of insulin E11.8 ; Right hip pain M25.551 ; Neuropathy G62.9 and Hypertriglyceridemia E78.1 [facility] [address] [id number] [address] [place] [address] March, Right hip pain M25.551 and N europathy G62.9 [facility] [address] [facility] [id number] [address] [place] [address] March, Right hip pain M25.551 and N europathy G62.9 [facility] [address] [facility] [id number] [address] [place] [address] Feb, Right hip pain M25.551 [place] [address] [address] [facility] [id number] [place] [address] Jan, Hypertriglyceridemia E78.1 [place] [address] [place] [id number] [place] [address] Jan, Right hip pain M25.551 [place] [address] [place] [id number] [place] [address] Jan, Hypertriglyceridemia E78.1 ; Dysuria R30.0 ; RLQ abdominal pain R10.31 and Right hip pain M25.551 [place] [address] [place] [id number] [address] [place] [address] Dec, Right hip pain M25.551 [place] [address] [place] [id number] [address] [place] [address] Dec, Type 2 diabetes mellitus wit h complication, without long-term current use of insulin E11.8 ; Right hip pain M25.551 and Neuropathy G62.9 [facility] [address] [place] [id number] [address] [place] [address] Nov, Right hip pain M25.551 [facility] [address] [facility] [id number] [address] [place] [address] Nov, [facility] [address] [place] [id number] [address] [place] [address] Oct, Right hip pain M25.551 [place] [address] [address] [facility] [id number] [address] [place] [address] Sep, [place] [address] [place] [id number] [address] [place] [address] Sep, Type 2 diabetes mellitus wit h complication, without long-term current use of insulin E11.8 and Right hip pain M25.551 [place] [address] [place] [id number] [address] [place] [address] Sep, Neuropathy G62.9 [place] [address] [place] [id number] [place] [address] Sep, Hypertriglyceridemia E78.1 [place] [address] [place] [id number] [place] [address] Aug, Type 2 diabetes mellitus wit h complication, without long-term current use of insulin E11.8 ; Right hip pain M25.551 ; Neuropathy G62.9 ; Pain of left foot M79.672 and Pain in right foot M79.671 [place] [address] [place] [id number] [place] [address] Aug, Type 2 diabetes mellitus wit h complication, without long-term current use of insulin E11.8 [place] [address] [place] [id number] [place] [address] Aug, Type 2 diabetes mellitus wit h complication, without long-term current use of insulin E11.8 ; Neuropathy G62.9 ; Right hip pain M25.551 ; Pain of left foot M79.672 and Pain in right foot M79.671 [place] [address] [place] [id number] [address] [place] [address] Feb, [place] [address] [place] [id number] [address] [place] [phone] Feb, [place] [address] [place] [id number] [place] [phone] March, [facility] [address] [id number] [address] [place] [address] Feb, [facility] [address] [id number] [address] [place] [address] Oct, [facility] [address] [id number] [address] [place] [phone] Oct, [facility] [address] [id number] [address] [place] [address] Nov, [facility] [address] [id number] [address] [place] [address] Oct, [facility] [address] [id number] [address] [place] [phone] Oct, [facility] [address] [facility] [id number] [address] [place] [address] Oct, [facility] [address] [id number] [address] [place] [address] Oct, IMMUNIZATIONS No Known Immunizations SOCIAL HISTORY Never Assessed REASON FOR VISIT Controlled Med Refill 05/10/18 PLAN OF CARE VITAL SIGNS MEDICATIONS Medication Instructions Dosage Frequency Start Date End Date Duration S tatus Percocet 7.5-325 MG Orally 4 times a day 1 tablet 6h Apr, 28 days Active RESULTS No Results PROCEDURES [...]
--- OUTSIDE RECORDS SUMMARY | 2020-04-07 22:49 | XMS REPORT ---
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 [id number] Problem Other chronic pain G89.29 Active 8 0533781 Problem Neuropathy G62.9 Active 038895848 Problem Type 2 diabetes mellitus wit h complication, without long-term current use of insulin E11.8 Active 19806670 Problem Right hip pain M25.551 Active 99464 [id number] Problem Hypertriglyceridemia E78.1 Active 168868921 ALLERGIES No Information ENCOUNTERS Encounter Location Date Diagnosis [facility] [address] [facility] [id number] [address] [place] [address] Apr, Right hip pain M25.551 [facility] [address] [facility] [id number] [address] [place] [address] Apr, Right hip pain M25.551 and N europathy G62.9 [facility] [address] [facility] [id number] [address] [place] [address] March, Right hip pain M25.551 and N europathy G62.9 [facility] [address] [facility] [id number] [address] [place] [address] Feb, Seasonal allergic rhinitis, unspecified trigger J30.2 [facility] [address] [facility] [id number] [address] [place] [address] Feb, Neuropathy G62.9 [facility] [address] [facility] [id number] [address] [place] [address] Feb, Right hip pain M25.551 and N europathy G62.9 [facility] [address] [id number] [address] [place] [address] Feb, Hypertriglyceridemia E78.1 [facility] [address] [id number] [address] [place] [address] Jan, Right hip pain M25.551 and T ype 2 diabetes mellitus with complication, without long-term current use of insulin E11.8 [facility] [address] [id number] [address] [place] [address] Jan, Neuropathy G62.9 [facility] [address] [id number] [address] [place] [address] Jan, Right hip pain M25.551 [place] [address] [id number] [address] [place] [address] Dec, Right hip pain M25.551 [facility] [address] [id number] [address] [place] [address] Nov, Right hip pain M25.551 [facility] [address] [id number] [address] [place] [address] Oct, Right hip pain M25.551 [facility] [address] [id number] [address] [place] [address] Sep, Right hip pain M25.551 [facility] [address] [id number] [address] [place] [address] Aug, Right hip pain M25.551 [facility] [address] [id number] [address] [place] [address] Aug, Type 2 diabetes mellitus wit h complication, without long-term current use of insulin E11.8 and Other chronic pain G89.29 [facility] [address] [id number] [address] [place] [address] Jul, Right hip pain M25.551 [facility] [address] [id number] [address] [place] [address] Jul, Right hip pain M25.551 [facility] [address] [id number] [address] [place] [address] Jul, Right hip pain M25.551 and N europathy G62.9 [place] [address] [facility] [id number] [address] [place] [address] Jun, Right hip pain M25.551 [facility] [address] [id number] [address] [place] [address] May, [place] [address] [facility] [id number] [address] [place] [address] May, Type 2 diabetes mellitus wit h complication, without long-term current use of insulin E11.8 and Right hip pain M25.551 [place] [address] [facility] [id number] [address] [place] [address] Apr, Type 2 diabetes mellitus wit h complication, without long-term current use of insulin E11.8 [place] [address] [id number] [address] [place] [address] Apr, Type 2 diabetes mellitus wit h complication, without long-term current use of insulin E11.8 ; Right hip pain M25.551 ; Neuropathy G62.9 and Hypertriglyceridemia E78.1 [place] [address] [facility] [id number] [address] [place] [address] March, Right hip pain M25.551 and N europathy G62.9 [place] [address] [id number] [address] [place] [address] March, Right hip pain M25.551 and N europathy G62.9 [facility] [address] [facility] [id number] [address] [place] [address] Feb, Right hip pain M25.551 [place] [address] [facility] [id number] [address] [place] [address] Jan, Hypertriglyceridemia E78.1 [facility] [address] [place] [id number] [address] [place] [address] Jan, Right hip pain M25.551 [facility] [address] [place] [id number] [address] [place] [address] Jan, Hypertriglyceridemia E78.1 ; Dysuria R30.0 ; RLQ abdominal pain R10.31 and Right hip pain M25.551 [facility] [address] [place] [id number] [address] [place] [address] Dec, Right hip pain M25.551 [place] [address] [place] [id number] [place] [address] Dec, Type 2 diabetes mellitus wit h complication, without long-term current use of insulin E11.8 ; Right hip pain M25.551 and Neuropathy G62.9 [place] [address] [address] Nov, Right hip pain M25.551 [place] [address] [address] Nov, [place] [address] [address] Oct, Right hip pain M25.551 [place] [address] [place] [id number] [address] [place] [address] Sep, [place] [address] [place] [id number] [place] [address] Sep, Type 2 diabetes mellitus wit h complication, without long-term current use of insulin E11.8 and Right hip pain M25.551 [place] [address] [place] [id number] [address] [place] [address] Sep, Neuropathy G62.9 [place] [address] [place] [id number] [place] [address] Sep, Hypertriglyceridemia E78.1 [facility] [address] [id number] [address] [place] [address] Aug, Type 2 diabetes mellitus wit h complication, without long-term current use of insulin E11.8 ; Right hip pain M25.551 ; Neuropathy G62.9 ; Pain of left foot M79.672 and Pain in right foot M79.671 [facility] [address] [facility] [id number] [address] [place] [address] Aug, Type 2 diabetes mellitus wit h complication, without long-term current use of insulin E11.8 [facility] [address] [id number] [address] [place] [address] Aug, Type 2 diabetes mellitus wit h complication, without long-term current use of insulin E11.8 ; Neuropathy G62.9 ; Right hip pain M25.551 ; Pain of left foot M79.672 and Pain in right foot M79.671 [facility] [address] [facility] [id number] [address] [place] [address] Feb, [facility] [address] [id number] [address] [place] [address] Feb, [facility] [address] [facility] [id number] [address] [place] [address] March, [facility] [address] [id number] [address] [place] [address] Feb, [facility] [address] [id number] [address] [place] [address] Oct, [facility] [address] [id number] [address] [place] [address] Oct, [facility] [address] [id number] [address] [place] [address] Nov, [facility] [address] [id number] [address] [place] [address] Oct, [facility] [address] [id number] [address] [place] [address] Oct, [facility] [address] [facility] [id number] [address] [place] [address] Oct, [facility] [address] [facility] [id number] [address] [place] [address] Oct, IMMUNIZATIONS No Known Immunizations SOCIAL HISTORY Never Assessed REASON FOR VISIT Controlled Med Refill PLAN OF CARE VITAL SIGNS MEDICATIONS Medication [...]
--- OUTSIDE RECORDS SUMMARY | 2020-04-07 22:49 | XMS REPORT ---
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 [id number] Problem Other chronic pain G89.29 Active 8 8762279 Problem Neuropathy G62.9 Active 426936720 Problem Type 2 diabetes mellitus wit h complication, without long-term current use of insulin E11.8 Active 98949382 Problem Right hip pain M25.551 Active 05172 7365093159 Problem Hypertriglyceridemia E78.1 Active 532384301 ALLERGIES No Information ENCOUNTERS Encounter Location Date Diagnosis [facility] [address] [place] [id number] [address] [place] [address] May, Hypertriglyceridemia E78.1 [facility] [address] [place] [id number] [address] [place] [address] Apr, Right hip pain M25.551 [facility] [address] [place] [id number] [address] [place] [address] Apr, Right hip pain M25.551 and N europathy G62.9 [facility] [address] [facility] [id number] [address] [place] [address] March, Right hip pain M25.551 and N europathy G62.9 [facility] [address] [facility] [id number] [address] [place] [address] Feb, Seasonal allergic rhinitis, unspecified trigger J30.2 [facility] [address] [facility] [id number] [address] [place] [address] Feb, Neuropathy G62.9 [facility] [address] [id number] [address] [place] [address] Feb, Right hip pain M25.551 and N europathy G62.9 [facility] [address] [id number] [address] [place] [address] Feb, Hypertriglyceridemia E78.1 [facility] [address] [id number] [address] [place] [address] Jan, Right hip pain M25.551 and T ype 2 diabetes mellitus with complication, without long-term current use of insulin E11.8 [facility] [address] [id number] [address] [place] [address] Jan, Neuropathy G62.9 [facility] [address] [id number] [address] [place] [address] Jan, Right hip pain M25.551 [facility] [address] [id number] [address] [place] [address] Dec, Right hip pain M25.551 [facility] [address] [id number] [address] [place] [address] Nov, Right hip pain M25.551 [facility] [address] [id number] [address] [place] [address] Oct, Right hip pain M25.551 [facility] [address] [id number] [address] [place] [id number] Sep, Right hip pain M25.551 [facility] [address] [id number] [address] [place] [address] Aug, Right hip pain M25.551 [facility] [address] [facility] [id number] [address] [place] [address] Aug, Type 2 diabetes mellitus wit h complication, without long-term current use of insulin E11.8 and Other chronic pain G89.29 [facility] [address] [id number] [address] [place] [address] Jul, Right hip pain M25.551 [place] [address] [id number] [address] [place] [address] Jul, Right hip pain M25.551 [place] [address] [facility] [id number] [address] [place] [address] Jul, Right hip pain M25.551 and N europathy G62.9 [place] [address] [id number] [address] [place] [address] Jun, Right hip pain M25.551 [place] [address] [facility] [id number] [address] [place] [id number] May, [place] [address] [facility] [id number] [address] [place] [address] May, Type 2 diabetes mellitus wit h complication, without long-term current use of insulin E11.8 and Right hip pain M25.551 [place] [address] [facility] [id number] [address] [place] [address] Apr, Type 2 diabetes mellitus wit h complication, without long-term current use of insulin E11.8 [place] [address] [facility] [id number] [address] [place] [address] Apr, Type 2 diabetes mellitus wit h complication, without long-term current use of insulin E11.8 ; Right hip pain M25.551 ; Neuropathy G62.9 and Hypertriglyceridemia E78.1 [place] [address] [id number] [address] [place] [address] March, Right hip pain M25.551 and N europathy G62.9 [place] [address] [facility] [id number] [address] [place] [address] March, Right hip pain M25.551 and N europathy G62.9 [place] [address] [facility] [id number] [address] [place] [address] Feb, Right hip pain M25.551 [facility] [address] [id number] [address] [place] [address] Jan, Hypertriglyceridemia E78.1 [facility] [address] [facility] [id number] [address] [place] [address] Jan, Right hip pain M25.551 [facility] [address] [facility] [id number] [address] [place] [address] Jan, Hypertriglyceridemia E78.1 ; Dysuria R30.0 ; RLQ abdominal pain R10.31 and Right hip pain M25.551 [facility] [address] [id number] [address] [place] [address] Dec, Right hip pain M25.551 [facility] [address] [facility] [id number] [address] [place] [address] Dec, Type 2 diabetes mellitus wit h complication, without long-term current use of insulin E11.8 ; Right hip pain M25.551 and Neuropathy G62.9 [facility] [address] [id number] [address] [place] [address] Nov, Right hip pain M25.551 [facility] [address] [id number] [address] [place] [address] Nov, [facility] [address] [id number] [address] [place] [address] Oct, Right hip pain M25.551 [facility] [address] [id number] [address] [place] [id number] Sep, [facility] [address] [facility] [id number] [address] [place] [id number] Sep, Type 2 diabetes mellitus wit h complication, without long-term current use of insulin E11.8 and Right hip pain M25.551 [facility] [address] [facility] [id number] [address] [place] [address] Sep, Neuropathy G62.9 [facility] [address] [facility] [id number] [address] [place] [address] Sep, Hypertriglyceridemia E78.1 [facility] [address] [facility] [id number] [address] [place] [address] Aug, Type 2 diabetes mellitus wit h complication, without long-term current use of insulin E11.8 ; Right hip pain M25.551 ; Neuropathy G62.9 ; Pain of left foot M79.672 and Pain in right foot M79.671 [facility] [address] [id number] [address] [place] [address] Aug, Type 2 diabetes mellitus wit h complication, without long-term current use of insulin E11.8 [facility] [address] [facility] [id number] [address] [place] [address] 17 Aug, 2016 Type 2 diabetes mellitus wit h complication, without long-term current use of insulin E11.8 ; Neuropathy G62.9 ; Right hip pain M25.551 ; Pain of left foot M79.672 and Pain in right foot M79.671 [facility] [address] [facility] [id number] [address] [place] [id number] Feb, [facility] [address] [facility] [id number] [address] [place] [id number] Feb, [facility] [address] [facility] [id number] [address] [place] [address] March, [facility] [address] [id number] [address] [place] [id number] Feb, [facility] [address] [id number] [address] [place] [address] Oct, [facility] [address] [facility] [id number] [address] [place] [address] Oct, [facility] [address] [facility] [id number] [address] [place] [id number] Nov, [facility] [address] [facility] [id number] [address] [place] [id number] Oct, [facility] [address] [facility] [id number] [address] [place] [phone] Oct, [facility] [address] [facility] [id number] [address] [place] [id number] Oct, [facility] [address] [facility] [id number] [address] [place] [address] Oct, IMMUNIZATIONS No Known Immunizations SOCIAL HISTORY Never Assessed REASON FOR VISIT Orders from Results PLAN OF CARE VITAL SIGNS MEDICATIONS Medication Instructions Dosage Frequency Start Date End Date Duration S tatus Lipitor 80 MG Orally Once a day 1 tablet 24h 90 days Active RESULTS No Results PROCEDURES No [...]
--- OUTSIDE RECORDS SUMMARY | 2020-04-07 22:50 | XMS REPORT ---
Author Author Ervin MARIE [facility] Address [address] [place] [address] Care Team Providers Care Messaging Architect Name Role Phone LUIS ALBERTO MARIE Unavailable PROBLEMS Type Condition ICD9-CM Code FHR20-FO Code Onset Dates Condition S tatus SNOMED Code Problem Right hip pain M25.551 Active 02805 [id number] Problem Hypertriglyceridemia E78.1 Active 674312110 Problem Neuropathy G62.9 Active 052938535 Problem Type 2 diabetes mellitus wit h complication, without long-term current use of insulin E11.8 Active 58152256 ALLERGIES No Information SOCIAL HISTORY Never Assessed PLAN OF CARE VITAL SIGNS MEDICATIONS Medication Instructions Dosage Frequency Start Date End Date Duration S tatus Zetia 10 MG Orally Once a day 1 tablet 24h Jan, 30 d ay(s) Active RESULTS No Results PROCEDURES No Known procedures IMMUNIZATIONS No Known Immunizations MEDICAL (GENERAL) HISTORY Type Description Date Medical [...]
--- OUTSIDE RECORDS SUMMARY | 2020-04-07 22:50 | XMS REPORT ---
Author Author Ervin MARIE Organization [employer] Address Unknown Phone Unavailable Care Team Providers Care Fiberglass Laminator Name Role Phone LUIS ALBERTO MARIE CP Unavailable Allergies No Known Allergies Problems Problem Type Condition Code Onset Dates Condition Statu s Problem Type 2 diabetes mellitus wit h complication, without long-term current use of insulin E11.8 Active Problem Neuropathy G62.9 Active Problem Hypertriglyceridemia E78.1 Active Assessment Neuropathy G62.9 Active Medications Medication Code System Code Instructions Start Date End Date Status Dosage Lyrica [facility] [address]-91 75 MG Orally 2 times a day Aug 24, 2016 2 capsules Results No Known Results Summary Purpose [employer] Submission
--- OUTSIDE RECORDS SUMMARY | 2020-04-07 22:50 | XMS REPORT ---
Author Author Ervin MARIE [facility] [employer] Address Unknown Phone Unavailable Care Team Providers Care Conference Interpreter Name Role Phone LUIS ALBERTO MARIE CP Unavailable Allergies No Known Allergies Problems Problem Type Condition Code Onset Dates Condition Statu s Problem Neuropathy G62.9 Active Assessment Type 2 diabetes mellitus wit h complication, without long-term current use of insulin E11.8 Active Problem Type 2 diabetes mellitus wit h complication, without long-term current use of insulin E11.8 Active Assessment Pain of left foot M79.672 Active Assessment Pain in right foot M79.671 Active Assessment Right hip pain M25.551 Active Assessment Neuropathy G62.9 Active Medications No Known Medications Procedures Procedure Coding System Code Date X-RAY EXAM OF FOOT CPT-4 20901 Sep 07, 2016 X-RAY EXAM HIP UNI 2-3 VIEWS CPT-4 69545 Sep 07, 2016 Results No Known Results Summary Purpose [employer] Submission
--- OUTSIDE RECORDS SUMMARY | 2020-04-07 22:50 | XMS REPORT ---
Author Author Ervin MARIE Organization [facility] Address [address] [place] [address] Care Team Providers Care Fingernail Sculptor Name Role Phone LUIS ALBERTO MARIE Unavailable PROBLEMS Type Condition ICD9-CM Code [id number] Code Onset Dates Condition S tatus SNOMED Code Problem Other chronic pain G89.29 Active 8 8389948 Problem Right hip pain M25.551 Active 34400 [id number] Problem Type 2 diabetes mellitus wit h complication, without long-term current use of insulin E11.8 Active 52105117 Problem Hypertriglyceridemia E78.1 Active 179408222 Problem Neuropathy G62.9 Active [id number] ALLERGIES No Known Allergies ENCOUNTERS Encounter Location Date Diagnosis [place] [address] [address] [facility] [id number] [address] [place] [address] Feb, Hypertriglyceridemia E78.1 [place] [address] [address] FORMERLY NAM[facility] [id number] [address] [place] [phone] 19 Jan, 2018 Right hip pain M25.551 and T ype 2 diabetes mellitus with complication, without long-term current use of insulin E11.8 [place] [address] [address] FORMER[facility] NAMED [facility] [id number] [address] [place] [phone] Jan, Neuropathy G62.9 [place] [address] [address] FORMERLY NAMED [facility] [id number] [address] [place] [address] Jan, Right hip pain M25.551 [place] [address] [address] [place] [id number] [address] [place] [address] Dec, Right hip pain M25.551 [place] [address] [address] [place] [id number] [address] [place] [address] Nov, Right hip pain M25.551 [place] [address] [address] [place] [id number] [address] [place] [address] Oct, Right hip pain M25.551 [facility] [address] [id number] [address] [place] [address] Sep, Right hip pain M25.551 [facility] [address] [id number] [address] [place] [address] Aug, Right hip pain M25.551 [facility] [address] [id number] [address] [place] [address] Aug, Type 2 diabetes mellitus wit h complication, without long-term current use of insulin E11.8 and Other chronic pain G89.29 [place] [address] [id number] [address] [place] [address] Jul, Right hip pain M25.551 [place] [address] [id number] [address] [place] [address] Jul, Right hip pain M25.551 [place] [address] [id number] [address] [place] [address] Jul, Right hip pain M25.551 and N europathy G62.9 [facility] [address] [id number] [address] [place] [address] Jun, Right hip pain M25.551 [place] [address] [id number] [address] [place] [address] May, [place] [address] [id number] [address] [place] [phone] May, Type 2 diabetes mellitus wit h complication, without long-term current use of insulin E11.8 and Right hip pain M25.551 [facility] [address] [id number] [address] [place] [phone] Apr, Type 2 diabetes mellitus wit h complication, without long-term current use of insulin E11.8 [place] [address] [id number] [address] [place] [address] Apr, Type 2 diabetes mellitus wit h complication, without long-term current use of insulin E11.8 ; Right hip pain M25.551 ; Neuropathy G62.9 and Hypertriglyceridemia E78.1 [facility] [address] [id number] [address] [place] [address] March, Right hip pain M25.551 and N europathy G62.9 [place] [address] [id number] [address] [place] [phone] March, Right hip pain M25.551 and N europathy G62.9 [place] [address] [address] FORMERLY NAMED [facility] [id number] [address] [place] [address] Feb, Right hip pain M25.551 [place] [address] [place] [id number] [address] [place] [address] Jan, Hypertriglyceridemia E78.1 [place] [address] [place] [id number] [address] [place] [address] Jan, Right hip pain M25.551 [place] [address] [place] [id number] [address] [place] [address] Jan, Hypertriglyceridemia E78.1 ; Dysuria R30.0 ; RLQ abdominal pain R10.31 and Right hip pain M25.551 [place] [address] [place] [id number] [address] [place] [address] Dec, Right hip pain M25.551 [place] [address] [id number] [address] [place] [address] Dec, Type 2 diabetes mellitus wit h complication, without long-term current use of insulin E11.8 ; Right hip pain M25.551 and Neuropathy G62.9 [facility] [address] [facility] [id number] [address] [place] [address] Nov, Right hip pain M25.551 [facility] [address] [facility] [id number] [address] [place] [address] Nov, [place] [address] [place] [id number] [address] [place] [address] Oct, Right hip pain M25.551 [place] [address] [address] FORMER[facility] NAMED [facility] [id number] [address] [place] [phone] Sep, [place] [address] [place] [id number] [address] [place] [address] Sep, Type 2 diabetes mellitus wit h complication, without long-term current use of insulin E11.8 and Right hip pain M25.551 [place] [address] [place] [id number] [place] [address] Sep, Neuropathy G62.9 [place] [address] [address] [place] [id number] [place] [phone] Sep, Hypertriglyceridemia E78.1 [place] [address] [address] [place] [id number] [place] [address] Aug, Type 2 diabetes mellitus wit h complication, without long-term current use of insulin E11.8 ; Right hip pain M25.551 ; Neuropathy G62.9 ; Pain of left foot M79.672 and Pain in right foot M79.671 [place] [address] [place] [id number] [address] [place] [phone] Aug, Type 2 diabetes mellitus wit h complication, without long-term current use of insulin E11.8 [place] [address] [place] [id number] [address] [place] [address] Aug, Type 2 diabetes mellitus wit h complication, without long-term current use of insulin E11.8 ; Neuropathy G62.9 ; Right hip pain M25.551 ; Pain of left foot M79.672 and Pain in right foot M79.671 [place] [address] [place] [id number] [address] [place] [address] Feb, [place] [address] [address] [place] [id number] [place] [phone] Feb, [facility] [address] [id number] [address] [place] [address] March, [facility] [address] [id number] [address] [place] [phone] Feb, [facility] [address] [id number] [address] [place] [phone] Oct, [facility] [address] [id number] [address] [place] [phone] Oct, [facility] [address] [id number] [address] [place] [phone] Nov, [facility] [address] [id number] [address] [place] [address] Oct, [facility] [address] [id number] [address] [place] [phone] Oct, [facility] [address] [id number] [address] [place] [address] Oct, [facility] [address] [id number] [address] [place] [phone] Oct, IMMUNIZATIONS No Known Immunizations SOCIAL HISTORY Never Assessed REASON FOR VISIT Diabetes/Pain management (chronic)- Had been out of Metformin for a bit due to a misunderstanding, but has his meds now- Rodney Arriaga rn PLAN OF CARE Activity Details Follow Up 4 Weeks Reason:DM VITAL SIGNS Height 69.75 in 2017-04-21 Weight 224 lbs 2017-04-21 Temperature 98.8 degrees Fahrenheit 2017-04-21 Heart Rate 70 bpm 2017-04-21 Respiratory Rate 18 2017-04-21 BMI 32.37 kg/m2 2017-04-21 Blood pressure systolic 140 mmHg 2017-04-21 Blood pressure diastolic 88 mmHg 2017-04-21 MEDICATIONS Medication Instructions Dosage Frequency Start Date End Date Duration S tatus Lyrica 150 MG Orally 2 times a day 2 capsules 12h 17 Aug, 2016 90 days Active Zetia 10 mg Orally Once a day 1 tablet 24h 13 Jan, 2017 90 d ays Active Percocet 7.5-325 MG Orally 3 times a day 1 tablet 8h 14 Jorden, 2 017 12 May, 2017 28 days Active Victoza 18 MG/3ML Subcutaneous Once a day 0.6mg daily X 7 days, 1.2mg daily X 7 days, 1.8mg daily 24h 17 Aug, 2016 13 Jun, 2017 30 days Active MetFORMIN HCl ER 500 mg Orally 2 times a day 2 capsules 12h 17 O 2015 90 days Active Lipitor 40 mg Orally Once a day 1 tablet 24h 90 Active RESULTS Name Result Date Reference Range A1C (IN HOUSE) 2017-04-21 A1C IN HOUSE 14 4.3 - 5.6 % Previous A1c 7.7 Lot [id number] Exp date MICROALBUMIN, URINE (IN HOUSE) MICROALBUMIN High Abnormal Lot # [id number] Exp date 04/07/2018 Clarity Clear Color yellow ALB 150 CRE 100 A:C (IN HOUSE) >300 Control Control Lot # Exp date MICROALBUMIN/CREATININE RATIO, URINE 2017-04-21 Creatinine, Urine 44.7 Not Estab. Microalbumin, Urine 222.4 Not Estab. Microalb/Creat Ratio 497.5 0.0-30.0 PROCEDURES Procedure Date Ordered Result Body Site GLYCATED HEMOGLOBIN TEST April 21, 2017 MICROALBUMIN, SEMIQUANT April 21, 2017 MICROALBUMIN, QUANTITATIVE April 21, 2017 ASSAY OF URINE CREATININE April 21, 2017 INSTRUCTIONS MEDICATIONS ADMINISTERED No Known Medications MEDICAL [...]
--- OUTSIDE RECORDS SUMMARY | 2020-04-07 22:50 | XMS REPORT ---
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 [id number] Problem Other chronic pain G89.29 Active 8 0665630 Problem Neuropathy G62.9 Active 222166545 Problem Type 2 diabetes mellitus wit h complication, without long-term current use of insulin E11.8 Active 51375104 Problem Right hip pain M25.551 Active 14452 9420109197 Problem Hypertriglyceridemia E78.1 Active 352237403 ALLERGIES No Information ENCOUNTERS Encounter Location Date Diagnosis [facility] [address] [facility] [id number] [address] [place] [address] Apr, [facility] [address] [facility] [id number] [address] [place] [address] Apr, Right hip pain M25.551 and N europathy G62.9 [facility] [address] [facility] [id number] [address] [place] [address] March, Right hip pain M25.551 and N europathy G62.9 [facility] [address] [facility] [id number] [address] [place] [phone] Feb, Seasonal allergic rhinitis, unspecified trigger J30.2 [facility] [address] [facility] [id number] [address] [place] [phone] Feb, Neuropathy G62.9 [facility] [address] [facility] [id number] [address] [place] [address] Feb, Right hip pain M25.551 and N europathy G62.9 [facility] [address] [id number] [address] [place] [id number] Feb, Hypertriglyceridemia E78.1 [facility] [address] [id number] [address] [place] [address] Jan, Right hip pain M25.551 and T ype 2 diabetes mellitus with complication, without long-term current use of insulin E11.8 [facility] [address] [id number] [address] [place] [phone] Jan, Neuropathy G62.9 [facility] [address] [id number] [address] [place] [address] Jan, Right hip pain M25.551 [facility] [address] [id number] [address] [place] [address] Dec, Right hip pain M25.551 [facility] [address] [id number] [address] [place] [address] Nov, Right hip pain M25.551 [facility] [address] [id number] [address] [place] [phone] Oct, Right hip pain M25.551 [facility] [address] [id number] [address] [place] [address] Sep, Right hip pain M25.551 [facility] [address] [id number] [address] [place] [address] Aug, Right hip pain M25.551 [facility] [address] [id number] [address] [place] [phone] Aug, Type 2 diabetes mellitus wit h complication, without long-term current use of insulin E11.8 and Other chronic pain G89.29 [facility] [address] [id number] [address] [place] [address] Jul, Right hip pain M25.551 [facility] [address] [id number] [address] [place] [phone] Jul, Right hip pain M25.551 [facility] [address] [facility] [id number] [address] [place] [address] Jul, Right hip pain M25.551 and N europathy G62.9 [facility] [address] [place] [id number] [address] [place] [phone] Jun, Right hip pain M25.551 [facility] [address] [facility] [id number] [address] [place] [address] May, [facility] [address] [facility] [id number] [place] [address] May, Type 2 diabetes mellitus wit h complication, without long-term current use of insulin E11.8 and Right hip pain M25.551 [place] [address] [place] [id number] [place] [address] Apr, Type 2 diabetes mellitus wit h complication, without long-term current use of insulin E11.8 [facility] [address] [facility] [id number] [address] [place] [address] Apr, Type 2 diabetes mellitus wit h complication, without long-term current use of insulin E11.8 ; Right hip pain M25.551 ; Neuropathy G62.9 and Hypertriglyceridemia E78.1 [place] [address] [place] [id number] [address] [place] [address] March, Right hip pain M25.551 and N europathy G62.9 [facility] [address] [facility] [id number] [address] [place] [address] March, Right hip pain M25.551 and N europathy G62.9 [facility] [address] [facility] [id number] [address] [place] [address] Feb, Right hip pain M25.551 [facility] [address] [facility] [id number] [address] [place] [address] Jan, Hypertriglyceridemia E78.1 [facility] [address] [facility] [id number] [address] [place] [address] Jan, Right hip pain M25.551 [facility] [address] [place] [id number] [place] [address] Jan, Hypertriglyceridemia E78.1 ; Dysuria R30.0 ; RLQ abdominal pain R10.31 and Right hip pain M25.551 [place] [address] [place] [id number] [place] [address] Dec, Right hip pain M25.551 [place] [address] [place] [id number] [place] [address] Dec, Type 2 diabetes mellitus wit h complication, without long-term current use of insulin E11.8 ; Right hip pain M25.551 and Neuropathy G62.9 [place] [address] [address] Nov, Right hip pain M25.551 [place] [address] [place] [id number] [address] [place] [address] Nov, [place] [address] [address] Oct, Right hip pain M25.551 [place] [address] [place] [id number] [address] [place] [address] Sep, [place] [address] [place] [id number] [place] [address] Sep, Type 2 diabetes mellitus wit h complication, without long-term current use of insulin E11.8 and Right hip pain M25.551 [place] [address] [place] [id number] [address] [place] [address] Sep, Neuropathy G62.9 [place] [address] [place] [id number] [address] [place] [address] Sep, Hypertriglyceridemia E78.1 [place] [address] [id number] [address] [place] [address] 31 Aug, 2016 Type 2 diabetes mellitus wit h complication, without long-term current use of insulin E11.8 ; Right hip pain M25.551 ; Neuropathy G62.9 ; Pain of left foot M79.672 and Pain in right foot M79.671 [facility] [address] [id number] [address] [place] [phone] Aug, Type 2 diabetes mellitus wit h complication, without long-term current use of insulin E11.8 [facility] [address] [id number] [address] [place] [phone] 17 Aug, 2016 Type 2 diabetes mellitus wit h complication, without long-term current use of insulin E11.8 ; Neuropathy G62.9 ; Right hip pain M25.551 ; Pain of left foot M79.672 and Pain in right foot M79.671 [facility] [address] [id number] [address] [place] [phone] 14 Feb, 2015 [facility] [address] [id number] [address] [place] [phone] Feb, [facility] [address] [id number] [address] [place] [address] March, [facility] [address] [id number] [address] [place] [phone] Feb, [facility] [address] [id number] [address] [place] [phone] Oct, [facility] [address] [id number] [address] [place] [phone] Oct, [facility] [address] [id number] [address] [place] [phone] Nov, [facility] [address] [id number] [address] [place] [phone] Oct, [facility] [address] [id number] [address] [place] [phone] Oct, [facility] [address] [facility] [id number] [address] [place] [phone] Oct, [facility] [address] [facility] [id number] [address] [place] [phone] Oct, IMMUNIZATIONS No Known Immunizations SOCIAL HISTORY [...]
--- OUTSIDE RECORDS SUMMARY | 2020-04-07 22:50 | XMS REPORT ---
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 [id number] Problem Other chronic pain G89.29 Active 8 4772623 Problem Neuropathy G62.9 Active 977696856 Problem Type 2 diabetes mellitus wit h complication, without long-term current use of insulin E11.8 Active 88230682 Problem Right hip pain M25.551 Active 82798 1769238323 Problem Hypertriglyceridemia E78.1 Active [id number] ALLERGIES No Information ENCOUNTERS Encounter Location Date Diagnosis [facility] [address] [facility] [id number] [address] [place] [phone] Apr, [facility] [address] [facility] [id number] [address] [place] [address] March, Right hip pain M25.551 and N europathy G62.9 [facility] [address] [facility] [id number] [address] [place] [address] Feb, Seasonal allergic rhinitis, unspecified trigger J30.2 [facility] [address] [facility] [id number] [address] [place] [address] Feb, Neuropathy G62.9 [facility] [address] [facility] [id number] [address] [place] [address] Feb, Right hip pain M25.551 and N europathy G62.9 [facility] [address] [facility] [id number] [address] [place] [address] Feb, Hypertriglyceridemia E78.1 [facility] [address] [id number] [address] [place] [address] Jan, Right hip pain M25.551 and T ype 2 diabetes mellitus with complication, without long-term current use of insulin E11.8 [facility] [address] [id number] [address] [place] [phone] 13 Jan, 2018 Neuropathy G62.9 [facility] [address] [id number] [address] [place] [address] Jan, Right hip pain M25.551 [facility] [address] [id number] [address] [place] [address] Dec, Right hip pain M25.551 [facility] [address] [id number] [address] [place] [address] Nov, Right hip pain M25.551 [facility] [address] [id number] [address] [place] [address] Oct, Right hip pain M25.551 [facility] [address] [id number] [address] [place] [id number] Sep, Right hip pain M25.551 [facility] [address] [id number] [address] [place] [address] Aug, Right hip pain M25.551 [facility] [address] [id number] [address] [place] [address] Aug, Type 2 diabetes mellitus wit h complication, without long-term current use of insulin E11.8 and Other chronic pain G89.29 [facility] [address] [id number] [address] [place] [address] Jul, Right hip pain M25.551 [facility] [address] [id number] [address] [place] [address] Jul, Right hip pain M25.551 [facility] [address] [id number] [address] [place] [address] Jul, Right hip pain M25.551 and N europathy G62.9 [facility] [address] [id number] [address] [place] [address] Jun, Right hip pain M25.551 [facility] [address] [id number] [address] [place] [address] May, [facility] [address] [facility] [id number] [address] [place] [phone] May, Type 2 diabetes mellitus wit h complication, without long-term current use of insulin E11.8 and Right hip pain M25.551 [place] [address] [facility] [id number] [address] [place] [address] Apr, Type 2 diabetes mellitus wit h complication, without long-term current use of insulin E11.8 [place] [address] [facility] [id number] [address] [place] [address] Apr, Type 2 diabetes mellitus wit h complication, without long-term current use of insulin E11.8 ; Right hip pain M25.551 ; Neuropathy G62.9 and Hypertriglyceridemia E78.1 [place] [address] [id number] [address] [place] [address] March, Right hip pain M25.551 and N europathy G62.9 [place] [address] [id number] [address] [place] [address] March, Right hip pain M25.551 and N europathy G62.9 [facility] [address] [id number] [address] [place] [address] Feb, Right hip pain M25.551 [place] [address] [facility] [id number] [address] [place] [address] Jan, Hypertriglyceridemia E78.1 [facility] [address] [facility] [id number] [address] [place] [address] Jan, Right hip pain M25.551 [place] [address] [place] [id number] [address] [place] [address] Jan, Hypertriglyceridemia E78.1 ; Dysuria R30.0 ; RLQ abdominal pain R10.31 and Right hip pain M25.551 [place] [address] [place] [id number] [address] [place] [address] Dec, Right hip pain M25.551 [place] [address] [place] [id number] [address] [place] [address] Dec, Type 2 diabetes mellitus wit h complication, without long-term current use of insulin E11.8 ; Right hip pain M25.551 and Neuropathy G62.9 [place] [address] [place] [id number] [place] [address] Nov, Right hip pain M25.551 [place] [address] [place] [id number] [place] [address] Nov, [place] [address] [place] [id number] [place] [address] Oct, Right hip pain M25.551 [place] [address] [place] [id number] [place] [address] Sep, [place] [address] [place] [id number] [address] [place] [phone] Sep, Type 2 diabetes mellitus wit h complication, without long-term current use of insulin E11.8 and Right hip pain M25.551 [place] [address] [place] [id number] [address] [place] [address] Sep, Neuropathy G62.9 [place] [address] [place] [id number] [place] [address] Sep, Hypertriglyceridemia E78.1 [place] [address] [facility] [id number] [address] [place] [address] Aug, Type 2 diabetes mellitus wit h complication, without long-term current use of insulin E11.8 ; Right hip pain M25.551 ; Neuropathy G62.9 ; Pain of left foot M79.672 and Pain in right foot M79.671 [facility] [address] [id number] [address] [place] [address] 31 Aug, 2016 Type 2 diabetes mellitus wit h complication, without long-term current use of insulin E11.8 [facility] [address] [id number] [address] [place] [address] 17 Aug, 2016 Type 2 diabetes mellitus wit h complication, without long-term current use of insulin E11.8 ; Neuropathy G62.9 ; Right hip pain M25.551 ; Pain of left foot M79.672 and Pain in right foot M79.671 [facility] [address] [id number] [address] [place] [address] 14 Feb, 2015 [facility] [address] [id number] [address] [place] [phone] Feb, [facility] [address] [id number] [address] [place] [address] March, [facility] [address] [id number] [address] [place] [address] Feb, [facility] [address] [id number] [address] [place] [address] Oct, [facility] [address] [id number] [address] [place] [address] Oct, [facility] [address] [id number] [address] [place] [address] Nov, [facility] [address] [id number] [address] [place] [phone] Oct, [facility] [address] [id number] [address] [place] [address] Oct, [facility] [address] [id number] [address] [place] [phone] Oct, [facility] [address] [id number] [facility] [place] [address] Oct, IMMUNIZATIONS No Known Immunizations SOCIAL HISTORY Never Assessed REASON FOR VISIT Controlled Med Refill 08/31/17 PLAN OF CARE VITAL SIGNS MEDICATIONS Medication Instructions Dosage Frequency Start Date End Date Duration S tatus Percocet 7.5-325 MG Orally 4 times a day 1 tablet 6h Aug, 28 days Active RESULTS No Results [...]
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
--- OUTSIDE RECORDS SUMMARY | 2020-04-07 22:50 | XMS REPORT ---
Author Author Ervin MARIE Organization [facility] Address [address] [place] [address] Care Team Providers Care Paper Stacker Name Role Phone LUIS ALBERTO MARIE Unavailable PROBLEMS Type Condition ICD9-CM Code [id number] Code Onset Dates Condition S tatus SNOMED Code Problem Right hip pain M25.551 Active 03954 0883689631 Problem Hypertriglyceridemia E78.1 Active 686968006 Problem Type 2 diabetes mellitus wit h complication, without long-term current use of insulin E11.8 Active 19561188 Problem Neuropathy G62.9 Active 065691945 ALLERGIES Substance Reaction Event Type Date Status N.K.D.A. Unknown Non Drug Allergy Oct, Unknown SOCIAL HISTORY No smoking Hx information available PLAN OF CARE Activity Details Follow Up prn Reason: VITAL SIGNS Height 69.75 in 2016-10-20 Weight 240 lbs 2016-10-20 Temperature 98.1 degrees Fahrenheit 2016-10-20 Heart Rate 80 bpm 2016-10-20 Respiratory Rate 20 2016-10-20 BMI 34.68 kg/m2 2016-10-20 Blood pressure systolic 120 mmHg 2016-10-20 Blood pressure diastolic 90 mmHg 2016-10-20 MEDICATIONS Medication Instructions Dosage Frequency Start Date End Date Duration S tatus MetFORMIN HCl ER 500 MG Orally 2 times a day 2 capsules 12h Aug, Active Tramadol HCl 50 mg Orally 2 times a day for hip pain 2 tablet Sep, Nov, 28 days Active Lipitor 40 mg Orally Once a day 1 tablet 24h Sep, 90 days Active Lyrica 75 MG Orally 2 times a day 2 capsules 12h Aug, 30 days Active Victoza 18 MG/3ML Subcutaneous Once a day 1.8 Units 24h Aug, Active RESULTS No Results PROCEDURES Procedure Date Ordered Related Diagnosis Body Site Office Visit, Est Pt., Level 3 Oct 20, 2016 IMMUNIZATIONS No Known Immunizations
--- OUTSIDE RECORDS SUMMARY | 2020-04-07 22:50 | XMS REPORT ---
Author Author Ervin MARIE Organization [facility] Address [address] [place] [address] Care Team Providers Care Engine Oiler Name Role Phone LUIS ALBERTO MARIE Unavailable PROBLEMS Type Condition ICD9-CM Code UFH45-NG Code Onset Dates Condition S tatus SNOMED Code Problem Other chronic pain G89.29 Active 8 2705668 Problem Right hip pain M25.551 Active 03685 9914583194 Problem Type 2 diabetes mellitus wit h complication, without long-term current use of insulin E11.8 Active 65358364 Problem Hypertriglyceridemia E78.1 Active 514808916 Problem Neuropathy G62.9 Active 617311417 ALLERGIES No Information ENCOUNTERS Encounter Location Date Diagnosis [place] [address] [facility] [id number] [address] [place] [address] Jan, Right hip pain M25.551 and T ype 2 diabetes mellitus with complication, without long-term current use of insulin E11.8 [place] [address] [facility] [id number] [address] [place] [address] Jan, Neuropathy G62.9 [facility] [address] [facility] [id number] [address] [place] [address] Jan, Right hip pain M25.551 [place] [address] [facility] [id number] [address] [place] [address] Dec, Right hip pain M25.551 [place] [address] [facility] [id number] [address] [place] [address] Nov, Right hip pain M25.551 [facility] [address] [facility] [id number] [address] [place] [address] Oct, Right hip pain M25.551 [place] [address] [id number] [address] [place] [address] Sep, Right hip pain M25.551 [facility] [address] [id number] [address] [place] [address] Aug, Right hip pain M25.551 [facility] [address] [id number] [address] [place] [address] Aug, Type 2 diabetes mellitus wit h complication, without long-term current use of insulin E11.8 and Other chronic pain G89.29 [facility] [address] [id number] [address] [place] [address] Jul, Right hip pain M25.551 [facility] [address] [id number] [address] [place] [address] Jul, Right hip pain M25.551 [place] [address] [id number] [address] [place] [address] Jul, Right hip pain M25.551 and N europathy G62.9 [facility] [address] [id number] [address] [place] [address] Jun, Right hip pain M25.551 [facility] [address] [id number] [address] [place] [address] May, [facility] [address] [id number] [address] [place] [address] May, Type 2 diabetes mellitus wit h complication, without long-term current use of insulin E11.8 and Right hip pain M25.551 [facility] [address] [id number] [address] [place] [address] Apr, Type 2 diabetes mellitus wit h complication, without long-term current use of insulin E11.8 [facility] [address] [id number] [address] [place] [address] Apr, Type 2 diabetes mellitus wit h complication, without long-term current use of insulin E11.8 ; Right hip pain M25.551 ; Neuropathy G62.[address] [facility] [address] [facility] [id number] [address] [place] [address] March, Right hip pain M25.551 and N europathy G62.9 [facility] [address] [facility] [id number] [address] [place] [address] March, Right hip pain M25.551 and N europathy G62.9 [facility] [address] [facility] [id number] [address] [place] [address] Feb, Right hip pain M25.551 [facility] [address] [place] [id number] [place] [address] Jan, Hypertriglyceridemia E78.1 [place] [address] [place] [id number] [place] [address] Jan, Right hip pain M25.551 [facility] [address] [place] [id number] [place] [address] Jan, Hypertriglyceridemia E78.1 ; Dysuria R30.0 ; RLQ abdominal pain R10.31 and Right hip pain M25.551 [place] [address] [place] [id number] [place] [address] Dec, Right hip pain M25.551 [facility] [address] [place] [id number] [place] [address] Dec, Type 2 diabetes mellitus wit h complication, without long-term current use of insulin E11.8 ; Right hip pain M25.[address] [facility] [address] [place] [id number] [address] [place] [address] Nov, Right hip pain M25.551 [facility] [address] [place] [id number] [address] [place] [address] Nov, [facility] [address] [place] [id number] [place] [address] Oct, Right hip pain M25.551 [facility] [address] [facility] [id number] [address] [place] [address] Sep, [facility] [address] [facility] [id number] [address] [place] [address] Sep, Type 2 diabetes mellitus wit h complication, without long-term current use of insulin E11.8 and Right hip pain M25.551 [place] [address] [place] [id number] [address] [place] [address] Sep, Neuropathy G62.9 [place] [address] [place] [id number] [address] [place] [address] Sep, Hypertriglyceridemia E78.1 [place] [address] [place] [id number] [address] [place] [address] Aug, Type 2 diabetes mellitus wit h complication, without long-term current use of insulin E11.8 ; Right hip pain M25.551 ; Neuropathy G62.9 ; Pain of left foot M79.672 and Pain in right foot M79.671 [place] [address] [place] [id number] [address] [place] [address] Aug, Type 2 diabetes mellitus wit h complication, without long-term current use of insulin E11.8 [place] [address] [place] [id number] [address] [place] [address] Aug, Type 2 diabetes mellitus wit h complication, without long-term current use of insulin E11.8 ; Neuropathy G62.9 ; Right hip pain M25.551 ; Pain of left foot M79.672 and Pain in right foot M79.671 [place] [address] [place] [id number] [address] [place] [address] Feb, [place] [address] [place] [id number] [address] [place] [phone] Feb, [place] [address] [place] [id number] [address] [place] [phone] March, [facility] [address] [id number] [address] [place] [phone] Feb, [facility] [address] [id number] [place] [phone] Oct, [facility] [address] [id number] [address] [place] [phone] Oct, [facility] [address] [id number] [address] [place] [phone] Nov, [facility] [address] [id number] [place] [phone] Oct, [facility] [address] [id number] [address] [place] [phone] Oct, [facility] [address] [id number] [address] [place] [phone] Oct, [facility] [address] [id number] [address] [place] [phone] Oct, IMMUNIZATIONS No Known Immunizations SOCIAL HISTORY Never Assessed REASON FOR VISIT New medication PLAN OF CARE VITAL SIGNS MEDICATIONS Medication Instructions Dosage Frequency Start Date End Date Duration S neal Lisinopril 20 mg Orally Once a day 1 tablet 24h Apr, 30 day(s) Active RESULTS No Results PROCEDURES No Known [...]
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
--- OUTSIDE RECORDS SUMMARY | 2020-04-07 22:50 | XMS REPORT ---
Author Author Ervin MARIE Organization [facility] Address [address] [place] [address] Care Team Providers Care Self Sealing Fuel Tank Repairer Name Role Phone LUIS ALBERTO MARIE Unavailable PROBLEMS Type Condition ICD9-CM Code [id number] Code Onset Dates Condition S tatus SNOMED Code Problem Right hip pain M25.551 Active 11000 7009348093 Problem Hypertriglyceridemia E78.1 Active 124598844 Problem Neuropathy G62.9 Active 460048898 Problem Type 2 diabetes mellitus wit h complication, without long-term current use of insulin E11.8 Active 06016728 ALLERGIES No Known Allergies SOCIAL HISTORY Never Assessed PLAN OF CARE Activity Details Follow Up prn Reason: VITAL SIGNS Height 69.75 in 2017-01-06 Weight 235.2 lbs 2017-01-06 Temperature 97.8 degrees Fahrenheit 2017-01-06 Heart Rate 72 bpm 2017-01-06 Respiratory Rate 20 2017-01-06 BMI 33.99 kg/m2 2017-01-06 Blood pressure systolic 132 mmHg 2017-01-06 Blood pressure diastolic 90 mmHg 2017-01-06 MEDICATIONS Medication Instructions Dosage Frequency Start Date End Date Duration S tatus Ultram 50 MG Orally 3 times a day while working 2 tab lets twice daily on days not working Dec, 28 days Active Cipro 500 mg Orally Twice a day 1 tablet 12h Jan, 11 r, 2016 10 day(s) Active MetFORMIN HCl ER 500 MG Orally 2 times a day 2 capsules 12h Aug, Active Lipitor 40 mg Orally Once a day 1 tablet 24h 90 Active Lyrica 75 MG Orally 2 times a day 2 capsules 12h Aug, 30 days Active RESULTS Name Result Date Reference Range UA LONG DIP (IN HOUSE) 2017-01-06 Lot # [id number] Exp date Clarity Clear Color Yellow Odor None GLU 1+ JUAN Negative KET Negative SG >=1.030 BLO Trace-lysed pH 5.0 Protein 2+ URO 0.2 NIT Negative SARY Negative Lot # Exp date CBC 2017-01-06 WBC 9.6 3.4-10.8 RBC 4.85 4.14-5.80 Hemoglobin 14.4 12.6-17.7 Hematocrit 42.5 37.5-51.0 MCV 88 79-97 MCH 29.7 26.6-33.0 MCHC 33.9 31.5-35.7 RDW 13.2 12.3-15.4 Platelets 287 150-379 Neutrophils 62 Lymphs 28 Monocytes 7 Eos 2 Basos 1 Neutrophils (Absolute) 5.9 1.4-7.0 Lymphs (Absolute) 2.7 0.7-3.1 Monocytes(Absolute) 0.7 0.1-0.9 Eos (Absolute) 0.2 0.0-0.4 Baso (Absolute) 0.1 0.0-0.2 Immature Granulocytes 0 Immature Grans (Abs) 0.0 0.0-0.1 CULTURE, URINE 2017-01-06 Urine Culture, Routine Final report Result 1 No growth CMP 2017-01-06 Glucose, Serum 215 65-99 BUN 10 6-24 Creatinine, Serum 0.66 0.76-1.27 eGFR If NonAfricn Am 112 >59 eGFR If Africn Am 129 >59 BUN/Creatinine Ratio 15 9-20 Sodium, Serum 137 134-144 Potassium, Serum 4.5 3.5-5.2 Chloride, Serum 98 96-106 Carbon Dioxide, Total 23 18-29 Calcium, Serum 9.3 8.7-10.2 Protein, Total, Serum 7.0 6.0-8.5 Albumin, Serum 4.0 3.5-5.5 Globulin, Total 3.0 1.5-4.5 A/G Ratio 1.3 1.1-2.5 Bilirubin, Total 0.2 0.0-1.2 Alkaline Phosphatase, S 89 39-117 AST (SGOT) 17 0-40 ALT (SGPT) 23 0-44 LIPID PANEL 2017-01-06 Cholesterol, Total 172 100-199 Triglycerides 618 0-149 HDL Cholesterol 27 >39 VLDL Cholesterol Calvin 5-40 LDL Cholesterol Calc 0-99 Comment: PROCEDURES Procedure Date Ordered Result Body Site URINALYSIS, AUTO, W/O SCOPE January 06, 2017 COMPLETE CBC W/AUTO DIFF WBC January 06, 2017 VENIPUNCT, ROUTINE* January 06, 2017 COMPREHEN METABOLIC PANEL January 06, 2017 LIPID PANEL January 06, 2017 URINE CULTURE/COLONY COUNT January 06, 2017 IMMUNIZATIONS No Known Immunizations MEDICAL (GENERAL) HISTORY [...]
--- OUTSIDE RECORDS SUMMARY | 2020-04-07 22:50 | XMS REPORT ---
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 Active [id number] Problem Other chronic pain G89.29 Active 8 5443694 Problem Neuropathy G62.9 Active 415292728 Problem Type 2 diabetes mellitus wit h complication, without long-term current use of insulin E11.8 Active 94075564 Problem Right hip pain M25.551 Active 76099 4349181773 Problem Hypertriglyceridemia E78.1 Active 414398006 ALLERGIES No Known Allergies ENCOUNTERS Encounter Location Date Diagnosis [facility] [address] [facility] [id number] [address] [place] [phone] Apr, [facility] [address] [facility] [id number] [address] [place] [phone] March, Right hip pain M25.551 and N europathy G62.9 [facility] [address] [facility] [id number] [address] [place] [phone] Feb, Seasonal allergic rhinitis, unspecified trigger J30.2 [facility] [address] [facility] [id number] [address] [place] [address] Feb, Neuropathy G62.9 [facility] [address] [facility] [id number] [address] [place] [address] Feb, Right hip pain M25.551 and N europathy G62.9 [facility] [address] [facility] [id number] [address] [place] [address] Feb, Hypertriglyceridemia E78.1 [facility] [address] [id number] [address] [place] [address] Jan, Right hip pain M25.551 and T ype 2 diabetes mellitus with complication, without long-term current use of insulin E11.8 [place] [address] [id number] [address] [place] [address] Jan, Neuropathy G62.9 [facility] [address] [id number] [address] [place] [address] Jan, Right hip pain M25.551 [facility] [address] [id number] [address] [place] [address] Dec, Right hip pain M25.551 [place] [address] [id number] [address] [place] [address] Nov, Right hip pain M25.551 [place] [address] [id number] [address] [place] [address] Oct, Right hip pain M25.551 [place] [address] [id number] [address] [place] [address] Sep, Right hip pain M25.551 [place] [address] [id number] [address] [place] [address] Aug, Right hip pain M25.551 [place] [address] [id number] [address] [place] [address] Aug, Type 2 diabetes mellitus wit h complication, without long-term current use of insulin E11.8 and Other chronic pain G89.29 [place] [address] [id number] [address] [place] [address] Jul, Right hip pain M25.551 [place] [address] [id number] [address] [place] [address] Jul, Right hip pain M25.551 [facility] [address] [id number] [address] [place] [address] Jul, Right hip pain M25.551 and N europathy G62.9 [facility] [address] [facility] [id number] [address] [place] [address] Jun, Right hip pain M25.551 [facility] [address] [id number] [address] [place] [phone] May, [facility] [address] [facility] [id number] [address] [place] [phone] May, Type 2 diabetes mellitus wit h complication, without long-term current use of insulin E11.8 and Right hip pain M25.551 [place] [address] [facility] [id number] [address] [place] [address] Apr, Type 2 diabetes mellitus wit h complication, without long-term current use of insulin E11.8 [place] [address] [facility] [id number] [address] [place] [address] Apr, Type 2 diabetes mellitus wit h complication, without long-term current use of insulin E11.8 ; Right hip pain M25.551 ; Neuropathy G62.9 and Hypertriglyceridemia E78.1 [place] [address] [facility] [id number] [address] [place] [address] March, Right hip pain M25.551 and N europathy G62.9 [place] [address] [facility] [id number] [address] [place] [address] March, Right hip pain M25.551 and N europathy G62.9 [facility] [address] [id number] [address] [place] [address] Feb, Right hip pain M25.551 [place] [address] [facility] [id number] [address] [place] [address] Jan, Hypertriglyceridemia E78.1 [facility] [address] [facility] [id number] [address] [place] [address] Jan, Right hip pain M25.551 [place] [address] [place] [id number] [address] [place] [address] Jan, Hypertriglyceridemia E78.1 ; Dysuria R30.0 ; RLQ abdominal pain R10.31 and Right hip pain M25.551 [facility] [address] [place] [id number] [address] [place] [address] Dec, Right hip pain M25.551 [place] [address] [place] [id number] [place] [address] Dec, Type 2 diabetes mellitus wit h complication, without long-term current use of insulin E11.8 ; Right hip pain M25.551 and Neuropathy G62.9 [place] [address] [place] [id number] [place] [address] Nov, Right hip pain M25.551 [place] [address] [address] Nov, [place] [address] [address] Oct, Right hip pain M25.551 [place] [address] [address] Sep, [place] [address] [place] [id number] [place] [address] Sep, Type 2 diabetes mellitus wit h complication, without long-term current use of insulin E11.8 and Right hip pain M25.551 [place] [address] [place] [id number] [place] [address] Sep, Neuropathy G62.9 [place] [address] [place] [id number] [place] [address] Sep, Hypertriglyceridemia E78.1 [place] [address] [place] [id number] [place] [address] Aug, Type 2 diabetes mellitus wit h complication, without long-term current use of insulin E11.8 ; Right hip pain M25.551 ; Neuropathy G62.9 ; Pain of left foot M79.672 and Pain in right foot M79.671 [facility] [address] [id number] [address] [place] [phone] 31 Aug, 2016 Type 2 diabetes mellitus wit h complication, without long-term current use of insulin E11.8 [facility] [address] [id number] [address] [place] [id number] 17 Aug, 2016 Type 2 diabetes mellitus wit h complication, without long-term current use of insulin E11.8 ; Neuropathy G62.9 ; Right hip pain M25.551 ; Pain of left foot M79.672 and Pain in right foot M79.671 [facility] [address] [id number] [address] [place] [phone] 14 Feb, 2015 [facility] [address] [id number] [address] [place] [phone] Feb, [facility] [address] [id number] [address] [place] [phone] March, [facility] [address] [id number] [address] [place] [phone] Feb, [facility] [address] [id number] [address] [place] [phone] Oct, [facility] [address] [id number] [address] [place] [phone] Oct, [facility] [address] [id number] [address] [place] [phone] Nov, [facility] [address] [id number] [address] [place] [phone] Oct, [facility] [address] [id number] [address] [place] [phone] Oct, [facility] [address] [id number] [address] [place] [phone] Oct, [facility] [address] [id number] [address] [place] [address] Oct, IMMUNIZATIONS No Known Immunizations SOCIAL HISTORY Never Assessed REASON FOR VISIT Pain management (chronic), no new concerns- Deny LARSON PLAN OF CARE Activity Details Follow Up 3 Months Reason:pain and DM VITAL SIGNS Height 69.75 in 2017-08-16 Weight 233.3 lbs 2017-08-16 Temperature 98.5 degrees Fahrenheit 2017-08-16 Heart Rate 78 bpm 2017-08-16 Respiratory Rate 20 2017-08-16 BMI 33.71 kg/m2 2017-08-16 Blood pressure systolic 128 mmHg 2017-08-16 Blood pressure diastolic 72 mmHg 2017-08-16 MEDICATIONS Medication Instructions Dosage Frequency Start Date End Date Duration S tatus GlipiZIDE ER 5 mg Orally Once a day 1 tablet 24h Aug, 90 days Active Lipitor 40 mg Orally Once a day 1 tablet 24h 90 Active Lisinopril 5 MG Orally Once a day 1 tablet 24h 23 Apr, 2017 Active Victoza Active Zetia 10 mg Orally Once a day 1 tablet 24h Jan, 90 d ays Active MetFORMIN HCl ER 500 MG Orally 2 times a day 2 tablets 12h Aug, 016 90 Active Lyrica 150 MG Orally 2 times a day 2 capsules 12h Aug, 90 days Active Percocet 7.5-325 MG Orally 4 times a day 1 tablet 6h 25 Jul, 2017 28 days Active RESULTS Name Result Date Reference Range A1C (IN HOUSE) 2017-08-16 A1C IN HOUSE 11.9 4.3 - 5.6 % Previous A1c 14 Lot [id number] Exp date 03/2019 PROCEDURES Procedure Date Ordered Result Body Site GLYCATED HEMOGLOBIN TEST Aug 16, 2017 INSTRUCTIONS MEDICATIONS ADMINISTERED No Known Medications [...]
--- OUTSIDE RECORDS SUMMARY | 2020-04-07 22:50 | XMS REPORT ---
Author Author Ervin MARIE [facility] Address [address] [place] [address] Care Team Providers Care Graduate Teaching Assistant Name Role Phone LUIS ALBERTO MARIE Unavailable PROBLEMS Type Condition ICD9-CM Code UNU92-AU Code Onset Dates Condition S tatus SNOMED Code Problem Right hip pain M25.551 Active 32814 [id number] Problem Hypertriglyceridemia E78.1 Active 999798290 Problem Neuropathy G62.9 Active 051674661 Problem Type 2 diabetes mellitus wit h complication, without long-term current use of insulin E11.8 Active [id number] ALLERGIES No Information SOCIAL HISTORY Never Assessed PLAN OF CARE VITAL SIGNS MEDICATIONS Medication Instructions Dosage Frequency Start Date End Date Duration S tatus Ultram 50 MG Orally 3 times a day while working 2 tab lets twice daily on days not working Dec, 28 days Active RESULTS No Results PROCEDURES [...]
--- OUTSIDE RECORDS SUMMARY | 2020-04-07 22:50 | XMS REPORT ---
Author Author Ervin MARIE Organization [employer] Address Unknown Phone Unavailable Care Team Providers Care Mechanic And Welder Name Role Phone LUIS ALBERTO MARIE CP Unavailable Allergies No Known Allergies Problems Problem Type Condition Code Onset Dates Condition Statu s Problem Neuropathy G62.9 Active Assessment Type 2 diabetes mellitus wit h complication, without long-term current use of insulin E11.8 Active Problem Type 2 diabetes mellitus wit h complication, without long-term current use of insulin E11.8 Active Medications No Known Medications Procedures Procedure Coding System Code Date LIPID PANEL CPT-4 65671 Sep 07, 2016 COMPREHEN METABOLIC PANEL CPT-4 82429 Aug COMPLETE CBC W/AUTO DIFF WBC CPT-4 27455 Sep 07, 2016 VENIPUNCT, ROUTINE* CPT-4 32070 Sep 07, 2016 Results Name Result Date Reference Range Unit Abnormali ty Flag ROUTINE VENIPUNCTURE Summary Purpose [employer] Submission
--- OUTSIDE RECORDS SUMMARY | 2020-04-07 22:50 | XMS REPORT ---
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 [id number] Problem Other chronic pain G89.29 Active 8 9787843 Problem Neuropathy G62.9 Active 745778653 Problem Type 2 diabetes mellitus wit h complication, without long-term current use of insulin E11.8 Active 16108132 Problem Right hip pain M25.551 Active 55979 [id number] Problem Hypertriglyceridemia E78.1 Active [id number] ALLERGIES No Information ENCOUNTERS Encounter Location Date Diagnosis [facility] [address] [facility] [id number] [address] [place] [address] Apr, Right hip pain M25.551 and N europathy G62.9 [facility] [address] [facility] [id number] [address] [place] [phone] March, Right hip pain M25.551 and N europathy G62.9 [facility] [address] [facility] [id number] [address] [place] [phone] Feb, Seasonal allergic rhinitis, unspecified trigger J30.2 [facility] [address] [facility] [id number] [address] [place] [phone] Feb, Neuropathy G62.9 [facility] [address] [facility] [id number] [address] [place] [phone] Feb, Right hip pain M25.551 and N europathy G62.9 [facility] [address] [facility] [id number] [address] [place] [phone] Feb, Hypertriglyceridemia E78.1 [facility] [address] [id number] [address] [place] [phone] Jan, Right hip pain M25.551 and T ype 2 diabetes mellitus with complication, without long-term current use of insulin E11.8 [place] [address] [facility] [id number] [address] [place] [address] Jan, Neuropathy G62.9 [facility] [address] [id number] [address] [place] [phone] Jan, Right hip pain M25.551 [place] [address] [facility] [id number] [address] [place] [phone] Dec, Right hip pain M25.551 [place] [address] [facility] [id number] [address] [place] [phone] Nov, Right hip pain M25.551 [place] [address] [facility] [id number] [address] [place] [phone] Oct, Right hip pain M25.551 [place] [address] [facility] [id number] [address] [place] [phone] Sep, Right hip pain M25.551 [place] [address] [facility] [id number] [address] [place] [phone] Aug, Right hip pain M25.551 [place] [address] [facility] [id number] [address] [place] [phone] Aug, Type 2 diabetes mellitus wit h complication, without long-term current use of insulin E11.8 and Other chronic pain G89.29 [place] [address] [facility] [id number] [address] [place] [phone] Jul, Right hip pain M25.551 [place] [address] [facility] [id number] [address] [place] [address] Jul, Right hip pain M25.551 [facility] [address] [facility] [id number] [address] [place] [phone] Jul, Right hip pain M25.551 and N europathy G62.9 [place] [address] [facility] [id number] [address] [place] [phone] Jun, Right hip pain M25.551 [place] [address] [facility] [id number] [address] [place] [phone] May, [place] [address] [place] [id number] [address] [place] [phone] May, Type 2 diabetes mellitus wit h complication, without long-term current use of insulin E11.8 and Right hip pain M25.551 [place] [address] [place] [id number] [address] [place] [phone] Apr, Type 2 diabetes mellitus wit h complication, without long-term current use of insulin E11.8 [place] [address] [facility] [id number] [address] [place] [phone] Apr, Type 2 diabetes mellitus wit h complication, without long-term current use of insulin E11.8 ; Right hip pain M25.551 ; Neuropathy G62.9 and Hypertriglyceridemia E78.1 [place] [address] [place] [id number] [address] [place] [phone] March, Right hip pain M25.551 and N europathy G62.9 [place] [address] [facility] [id number] [address] [place] [phone] March, Right hip pain M25.551 and N europathy G62.9 [place] [address] [facility] [id number] [address] [place] [address] Feb, Right hip pain M25.551 [place] [address] [facility] [id number] [address] [place] [phone] Jan, Hypertriglyceridemia E78.1 [place] [address] [place] [id number] [address] [place] [phone] Jan, Right hip pain M25.551 [facility] [address] [facility] [id number] [address] [place] [address] Jan, Hypertriglyceridemia E78.1 ; Dysuria R30.0 ; RLQ abdominal pain R10.31 and Right hip pain M25.551 [facility] [address] [facility] [id number] [address] [place] [phone] Dec, Right hip pain M25.551 [facility] [address] [facility] [id number] [address] [place] [phone] Dec, Type 2 diabetes mellitus wit h complication, without long-term current use of insulin E11.8 ; Right hip pain M25.551 and Neuropathy G62.9 [place] [address] [facility] [id number] [address] [place] [phone] Nov, Right hip pain M25.551 [place] [address] [place] [id number] [address] [place] [phone] Nov, [place] [address] [place] [id number] [address] [place] [phone] Oct, Right hip pain M25.551 [place] [address] [facility] [id number] [address] [place] [phone] Sep, [facility] [address] [facility] [id number] [address] [place] [phone] Sep, Type 2 diabetes mellitus wit h complication, without long-term current use of insulin E11.8 and Right hip pain M25.551 [place] [address] [facility] [id number] [address] [place] [phone] Sep, Neuropathy G62.9 [place] [address] [facility] [id number] [address] [place] [phone] Sep, Hypertriglyceridemia E78.1 [facility] [address] [facility] [id number] [address] [place] [address] Aug, Type 2 diabetes mellitus wit h complication, without long-term current use of insulin E11.8 ; Right hip pain M25.551 ; Neuropathy G62.9 ; Pain of left foot M79.672 and Pain in right foot M79.671 [facility] [address] [id number] [address] [place] [phone] 31 Aug, 2016 Type 2 diabetes mellitus wit h complication, without long-term current use of insulin E11.8 [facility] [address] [id number] [address] [place] [phone] 17 Aug, 2016 Type 2 diabetes mellitus wit h complication, without long-term current use of insulin E11.8 ; Neuropathy G62.9 ; Right hip pain M25.551 ; Pain of left foot M79.672 and Pain in right foot M79.671 [facility] [address] [id number] [address] [place] [phone] 14 Feb, 2015 [facility] [address] [id number] [address] [place] [phone] Feb, [facility] [address] [id number] [address] [place] [phone] March, [facility] [address] [id number] [address] [place] [phone] Feb, [facility] [address] [id number] [address] [place] [phone] Oct, [facility] [address] [id number] [address] [place] [phone] Oct, [facility] [address] [id number] [address] [place] [phone] Nov, [facility] [address] [id number] [address] [place] [phone] Oct, [facility] [address] [id number] [address] [place] [phone] Oct, [facility] [address] [id number] [address] [place] [phone] Oct, [facility] [address] [facility] [id number] [address] [place] [address] Oct, IMMUNIZATIONS No Known Immunizations SOCIAL HISTORY Never Assessed REASON FOR VISIT Controlled Med Refill 11/23/17 PLAN OF CARE VITAL SIGNS MEDICATIONS Medication Instructions Dosage Frequency Start Date End Date Duration S tatus Percocet 7.5-325 MG Orally 4 times a day 1 tablet 6h Nov, 28 days Active RESULTS No Results PROCEDURES [...]
--- OUTSIDE RECORDS SUMMARY | 2020-04-07 22:51 | XMS REPORT ---
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 [address] [place] [id number] [place] [id number] Feb, Seasonal allergic rhinitis, unspecified trigger J30.2 [facility] [address] [place] [id number] [place] [phone] Feb, Neuropathy G62.9 [facility] [address] [place] [id number] [place] [phone] Feb, Right hip pain M25.551 and N europathy G62.9 [facility] [address] [place] [id number] [place] [phone] Feb, Hypertriglyceridemia E78.1 [facility] [address] [place] [id number] [address] [place] [address] Jan, Right hip pain M25.551 and T ype 2 diabetes mellitus with complication, without long-term current use of insulin E11.8 [facility] [address] [id number] [address] [place] [phone] Jan, Neuropathy G62.9 [facility] [address] [id number] [address] [place] [address] Jan, Right hip pain M25.551 [facility] [address] [id number] [address] [place] [address] Dec, Right hip pain M25.551 [facility] [address] [id number] [address] [place] [phone] Nov, Right hip pain M25.551 [facility] [address] [id number] [address] [place] [address] Oct, Right hip pain M25.551 [facility] [address] [id number] [address] [place] [address] Sep, Right hip pain M25.551 [facility] [address] [id number] [address] [place] [address] Aug, Right hip pain M25.551 [facility] [address] [id number] [address] [place] [address] Aug, Type 2 diabetes mellitus wit h complication, without long-term current use of insulin E11.8 and Other chronic pain G89.29 [facility] [address] [id number] [address] [place] [address] Jul, Right hip pain M25.551 [facility] [address] [id number] [address] [place] [address] 11 Jul, 2017 Right hip pain M25.551 [facility] [address] [id number] [address] [place] [phone] 05 Jul, 2017 Right hip pain M25.551 and N europathy G62.9 [facility] [address] [id number] [address] [place] [address] Jun, Right hip pain M25.551 [place] [address] [place] [id number] [place] [address] May, [place] [address] [place] [id number] [place] [address] May, Type 2 diabetes mellitus wit h complication, without long-term current use of insulin E11.8 and Right hip pain M25.551 [place] [address] [address] Apr, Type 2 diabetes mellitus wit h complication, without long-term current use of insulin E11.8 [place] [address] [address] Apr, Type 2 diabetes mellitus wit h complication, without long-term current use of insulin E11.8 ; Right hip pain M25.551 ; Neuropathy G62.9 and Hypertriglyceridemia E78.1 [place] [address] [address] March, Right hip pain M25.551 and N europathy G62.9 [place] [address] [place] [id number] [place] [address] March, Right hip pain M25.551 and N europathy G62.9 [place] [address] [address] Feb, Right hip pain M25.551 [place] [address] [place] [id number] [address] [place] [address] Jan, Hypertriglyceridemia E78.1 [place] [address] [address] Jan, Right hip pain M25.551 [place] [address] [place] [id number] [place] [address] Jan, Hypertriglyceridemia E78.1 ; Dysuria R30.0 ; RLQ abdominal pain R10.31 and Right hip pain M25.551 [facility] [address] [facility] [id number] [address] [place] [address] Dec, Right hip pain M25.551 [place] [address] [facility] [id number] [address] [place] [address] Dec, Type 2 diabetes mellitus wit h complication, without long-term current use of insulin E11.8 ; Right hip pain M25.551 and Neuropathy G62.9 [place] [address] [facility] [id number] [address] [place] [address] Nov, Right hip pain M25.551 [place] [address] [place] [id number] [address] [place] [address] Nov, [place] [address] [place] [id number] [address] [place] [address] Oct, Right hip pain M25.551 [place] [address] [place] [id number] [address] [place] [address] Sep, [place] [address] [facility] [id number] [address] [place] [address] Sep, Type 2 diabetes mellitus wit h complication, without long-term current use of insulin E11.8 and Right hip pain M25.551 [place] [address] [place] [id number] [address] [place] [address] Sep, Neuropathy G62.9 [place] [address] [facility] [id number] [address] [place] [address] Sep, Hypertriglyceridemia E78.1 [place] [address] [facility] [id number] [address] [place] [address] Aug, Type 2 diabetes mellitus wit h complication, without long-term current use of insulin E11.8 ; Right hip pain M25.551 ; Neuropathy G62.9 ; Pain of left foot M79.672 and Pain in right foot M79.671 [place] [address] [facility] [id number] [address] [place] [address] 31 Aug, 2016 Type 2 diabetes mellitus wit h complication, without long-term current use of insulin E11.8 [facility] [address] [id number] [address] [place] [address] 17 Aug, 2016 Type 2 diabetes mellitus wit h complication, without long-term current use of insulin E11.8 ; Neuropathy G62.9 ; Right hip pain M25.551 ; Pain of left foot M79.672 and Pain in right foot M79.671 [facility] [address] [id number] [address] [place] [address] 14 Feb, 2015 [facility] [address] [id number] [address] [place] [phone] Feb, [facility] [address] [facility] [id number] [address] [place] [phone] March, [facility] [address] [id number] [address] [place] [phone] Feb, [facility] [address] [id number] [address] [place] [phone] Oct, [facility] [address] [id number] [address] [place] [phone] Oct, [facility] [address] [facility] [id number] [address] [place] [phone] Nov, [facility] [address] [id number] [address] [place] [phone] Oct, [facility] [address] [id number] [address] [place] [phone] Oct, [facility] [address] [id number] [address] [place] [phone] Oct, [facility] [address] [facility] [id number] [address] [place] [phone] Oct, IMMUNIZATIONS No Known Immunizations SOCIAL HISTORY Never Assessed REASON FOR VISIT Controlled Med Refill 08/03/2017 PLAN OF CARE VITAL SIGNS MEDICATIONS Medication Instructions Dosage Frequency Start Date End Date Duration S neal Percocet 7.5-325 MG Orally 4 times a day 1 tablet 6h 25 Jul, 2017 28 days Active RESULTS No Results PROCEDURES [...]
--- OUTSIDE RECORDS SUMMARY | 2020-04-07 22:51 | XMS REPORT ---
Author Author Ervin MARIE Organization [facility] Address [address] [place] [address] Care Team Providers Care Cranberry Farm Supervisor Name Role Phone LUIS ALBERTO MARIE Unavailable PROBLEMS Type Condition ICD9-CM Code [id number] Code Onset Dates Condition S tatus SNOMED Code Problem Other chronic pain G89.29 Active 8 2976795 Problem Right hip pain M25.551 Active 58448 5413423480 Problem Type 2 diabetes mellitus wit h complication, without long-term current use of insulin E11.8 Active 43464453 Problem Hypertriglyceridemia E78.1 Active 685399450 Problem Neuropathy G62.9 Active [id number] ALLERGIES No Known Allergies ENCOUNTERS Encounter Location Date Diagnosis [place] [address] [address] [facility] [id number] [address] [place] [phone] Feb, Hypertriglyceridemia E78.1 [place] [address] [address] [facility] [id number] [address] [place] [phone] 19 Jan, 2018 Right hip pain M25.551 and T ype 2 diabetes mellitus with complication, without long-term current use of insulin E11.8 [place] [address] [address] [facility] [id number] [address] [place] [phone] Jan, Neuropathy G62.9 [place] [address] [address] [facility] [id number] [address] [place] [address] Jan, Right hip pain M25.551 [place] [address] [address] [place] [id number] [address] [place] [address] Dec, Right hip pain M25.551 [place] [address] [address] [place] [id number] [address] [place] [address] Nov, Right hip pain M25.551 [place] [address] [address] [place] [id number] [address] [place] [address] Oct, Right hip pain M25.551 [facility] [address] [id number] [address] [place] [phone] Sep, Right hip pain M25.551 [facility] [address] [id number] [address] [place] [phone] Aug, Right hip pain M25.551 [facility] [address] [id number] [address] [place] [phone] Aug, Type 2 diabetes mellitus wit h complication, without long-term current use of insulin E11.8 and Other chronic pain G89.29 [place] [address] [id number] [address] [place] [address] Jul, Right hip pain M25.551 [place] [address] [id number] [address] [place] [address] Jul, Right hip pain M25.551 [place] [address] [id number] [address] [place] [phone] Jul, Right hip pain M25.551 and N europathy G62.9 [facility] [address] [id number] [address] [place] [address] Jun, Right hip pain M25.551 [place] [address] [id number] [address] [place] [phone] May, [place] [address] [id number] [address] [place] [phone] May, Type 2 diabetes mellitus wit h complication, without long-term current use of insulin E11.8 and Right hip pain M25.551 [facility] [address] [id number] [address] [place] [phone] Apr, Type 2 diabetes mellitus wit h complication, without long-term current use of insulin E11.8 [place] [address] [id number] [address] [place] [address] Apr, Type 2 diabetes mellitus wit h complication, without long-term current use of insulin E11.8 ; Right hip pain M25.551 ; Neuropathy G62.9 and Hypertriglyceridemia E78.1 [facility] [address] [id number] [address] [place] [address] March, Right hip pain M25.551 and N europathy G62.9 [place] [address] [id number] [address] [place] [phone] March, Right hip pain M25.551 and N europathy G62.9 [place] [address] [address] [facility] [id number] [address] [place] [address] Feb, Right hip pain M25.551 [place] [address] [address] [place] [id number] [address] [place] [address] Jan, Hypertriglyceridemia E78.1 [place] [address] [address] [place] [id number] [address] [place] [address] Jan, Right hip pain M25.551 [place] [address] [address] [place] [id number] [address] [place] [address] Jan, Hypertriglyceridemia E78.1 ; Dysuria R30.0 ; RLQ abdominal pain R10.31 and Right hip pain M25.551 [place] [address] [address] [place] [id number] [address] [place] [address] Dec, Right hip pain M25.551 [place] [address] [id number] [address] [place] [address] Dec, Type 2 diabetes mellitus wit h complication, without long-term current use of insulin E11.8 ; Right hip pain M25.551 and Neuropathy G62.9 [facility] [address] [facility] [id number] [address] [place] [address] Nov, Right hip pain M25.551 [facility] [address] [facility] [id number] [address] [place] [address] Nov, [place] [address] [address] [place] [id number] [address] [place] [address] Oct, Right hip pain M25.551 [place] [address] [address] [facility] [id number] [address] [place] [address] Sep, [place] [address] [address] [place] [id number] [address] [place] [phone] Sep, Type 2 diabetes mellitus wit h complication, without long-term current use of insulin E11.8 and Right hip pain M25.551 [place] [address] [address] [place] [id number] [place] [address] Sep, Neuropathy G62.9 [place] [address] [address] [place] [id number] [place] [phone] Sep, Hypertriglyceridemia E78.1 [place] [address] [address] [place] [id number] [place] [address] Aug, Type 2 diabetes mellitus wit h complication, without long-term current use of insulin E11.8 ; Right hip pain M25.551 ; Neuropathy G62.9 ; Pain of left foot M79.672 and Pain in right foot M79.671 [place] [address] [address] [place] [id number] [address] [place] [address] Aug, Type 2 diabetes mellitus wit h complication, without long-term current use of insulin E11.8 [place] [address] [address] [place] [id number] [address] [place] [address] Aug, Type 2 diabetes mellitus wit h complication, without long-term current use of insulin E11.8 ; Neuropathy G62.9 ; Right hip pain M25.551 ; Pain of left foot M79.672 and Pain in right foot M79.671 [place] [address] [address] [place] [id number] [address] [place] [address] Feb, [place] [address] [address] [place] [id number] [place] [phone] Feb, [facility] [address] [id number] [address] [place] [phone] March, [facility] [address] [id number] [address] [place] [phone] Feb, [facility] [address] [id number] [address] [place] [phone] Oct, [facility] [address] [id number] [address] [place] [phone] Oct, [facility] [address] [id number] [address] [place] [phone] Nov, [facility] [address] [id number] [address] [place] [phone] Oct, [facility] [address] [id number] [address] [place] [phone] Oct, [facility] [address] [id number] [address] [place] [phone] Oct, [facility] [address] [id number] [address] [place] [address] Oct, IMMUNIZATIONS No Known Immunizations SOCIAL HISTORY Never Assessed REASON FOR VISIT Diabetes F/U--Bi, Patient reports that he has not picked up the Lisinopri l from the Pharmacy that was prescribed on 04/30/2017 PLAN OF CARE Activity Details Follow Up 3 Months Reason:pain mgmt an d DM VITAL SIGNS Height 69.75 in 2017-05-19 Weight 222.9 lbs 2017-05-19 Temperature 98.3 degrees Fahrenheit 2017-05-19 Heart Rate 84 bpm 2017-05-19 Respiratory Rate 18 2017-05-19 BMI 32.21 kg/m2 2017-05-19 Blood pressure systolic 116 mmHg 2017-05-19 Blood pressure diastolic 82 mmHg 2017-05-19 MEDICATIONS Medication Instructions Dosage Frequency Start Date End Date Duration S tat Victoza 18 MG/3ML Subcutaneous Once a day 0.6mg daily X 7 days, 1.2mg daily X 7 days, 1.8mg daily 24h Aug, Jun, 30 days Active MetFORMIN HCl ER 500 MG Orally 2 times a day 2 tablets 12h 17 Aug, 016 Active Zetia 10 mg Orally Once a day 1 tablet 24h Jan, 90 d ays Active Lisinopril 5 MG Orally Once a day 1 tablet 24h 23 Apr, 2017 Active Percocet 7.5-325 MG Orally 3 times a day 1 tablet 8h 12 May, 2017 28 days Active Lyrica 150 MG Orally 2 times a day 2 capsules 12h Aug, 90 days Active Lipitor 40 mg Orally Once a day 1 tablet 24h 90 Active RESULTS No Results PROCEDURES No Known [...]
--- OUTSIDE RECORDS SUMMARY | 2020-04-07 22:51 | XMS REPORT ---
Author Author Ervin MARIE Organization [facility] Address [address] [place] [address] Care Team Providers Care Rewinder Operator Helper Name Role Phone LUIS ALBERTO MARIE Unavailable PROBLEMS Type Condition ICD9-CM Code OTO35-SL Code Onset Dates Condition S tatus SNOMED Code Problem Other chronic pain G89.29 Active 8 9722884 Problem Right hip pain M25.551 Active 77277 4646343674 Problem Type 2 diabetes mellitus wit h complication, without long-term current use of insulin E11.8 Active 02852275 Problem Hypertriglyceridemia E78.1 Active 595461796 Problem Neuropathy G62.9 Active 995787287 ALLERGIES No Information ENCOUNTERS Encounter Location Date Diagnosis [place] [address] [address] [place] [id number] [place] [address] Feb, Neuropathy G62.9 [place] [address] [address] Feb, Right hip pain M25.551 and N europathy G62.9 [place] [address] [address] [facility] [id number] [address] [place] [address] Feb, Hypertriglyceridemia E78.1 [place] [address] [address] [place] [id number] [address] [place] [address] Jan, Right hip pain M25.551 and T ype 2 diabetes mellitus with complication, without long-term current use of insulin E11.8 [place] [address] [address] [facility] [id number] [address] [place] [address] Jan, Neuropathy G62.9 [place] [address] [address] [facility] [id number] [address] [place] [address] Jan, Right hip pain M25.551 [place] [address] [id number] [address] [place] [phone] Dec, Right hip pain M25.551 [facility] [address] [id number] [address] [place] [address] Nov, Right hip pain M25.551 [facility] [address] [id number] [address] [place] [phone] Oct, Right hip pain M25.551 [facility] [address] [id number] [address] [place] [address] Sep, Right hip pain M25.551 [facility] [address] [id number] [address] [place] [phone] Aug, Right hip pain M25.551 [facility] [address] [facility] [id number] [address] [place] [phone] Aug, Type 2 diabetes mellitus wit h complication, without long-term current use of insulin E11.8 and Other chronic pain G89.29 [facility] [address] [id number] [address] [place] [phone] Jul, Right hip pain M25.551 [facility] [address] [id number] [address] [place] [phone] Jul, Right hip pain M25.551 [facility] [address] [id number] [address] [place] [address] Jul, Right hip pain M25.551 and N europathy G62.9 [facility] [address] [id number] [address] [place] [address] Jun, Right hip pain M25.551 [facility] [address] [id number] [address] [place] [phone] May, [facility] [address] [facility] [id number] [address] [place] [address] May, Type 2 diabetes mellitus wit h complication, without long-term current use of insulin E11.8 and Right hip pain M25.551 [place] [address] [facility] [id number] [address] [place] [phone] 23 Apr, 2017 Type 2 diabetes mellitus wit h complication, without long-term current use of insulin E11.8 [place] [address] [facility] [id number] [address] [place] [address] 14 Apr, 2017 Type 2 diabetes mellitus wit h complication, without long-term current use of insulin E11.8 ; Right hip pain M25.551 ; Neuropathy G62.9 and Hypertriglyceridemia E78.1 [place] [address] [id number] [address] [place] [address] March, Right hip pain M25.551 and N europathy G62.9 [place] [address] [facility] [id number] [address] [place] [address] March, Right hip pain M25.551 and N europathy G62.9 [place] [address] [facility] [id number] [address] [place] [address] Feb, Right hip pain M25.551 [place] [address] [facility] [id number] [address] [place] [address] Jan, Hypertriglyceridemia E78.1 [place] [address] [place] [id number] [address] [place] [address] Jan, Right hip pain M25.551 [place] [address] [facility] [id number] [address] [place] [address] Jan, Hypertriglyceridemia E78.1 ; Dysuria R30.0 ; RLQ abdominal pain R10.31 and Right hip pain M25.551 [place] [address] [facility] [id number] [address] [place] [address] Dec, Right hip pain M25.551 [place] [address] [place] [id number] [address] [place] [address] Dec, Type 2 diabetes mellitus wit h complication, without long-term current use of insulin E11.8 ; Right hip pain M25.551 and Neuropathy G62.9 [place] [address] [id number] [address] [place] [phone] Nov, Right hip pain M25.551 [facility] [address] [facility] [id number] [address] [place] [address] Nov, [facility] [address] [facility] [id number] [address] [place] [address] Oct, Right hip pain M25.551 [place] [address] [id number] [address] [place] [address] Sep, [place] [address] [facility] [id number] [address] [place] [address] Sep, Type 2 diabetes mellitus wit h complication, without long-term current use of insulin E11.8 and Right hip pain M25.551 [place] [address] [facility] [id number] [address] [place] [address] Sep, Neuropathy G62.9 [place] [address] [id number] [address] [place] [address] Sep, Hypertriglyceridemia E78.1 [place] [address] [facility] [id number] [address] [place] [address] Aug, Type 2 diabetes mellitus wit h complication, without long-term current use of insulin E11.8 ; Right hip pain M25.551 ; Neuropathy G62.9 ; Pain of left foot M79.672 and Pain in right foot M79.671 [facility] [address] [id number] [address] [place] [address] Aug, Type 2 diabetes mellitus wit h complication, without long-term current use of insulin E11.8 [place] [address] [facility] [id number] [address] [place] [address] 17 Aug, 2016 Type 2 diabetes mellitus wit h complication, without long-term current use of insulin E11.8 ; Neuropathy G62.9 ; Right hip pain M25.551 ; Pain of left foot M79.672 and Pain in right foot M79.671 [facility] [address] [id number] [address] [place] [phone] 14 Feb, 2015 [facility] [address] [id number] [address] [place] [phone] Feb, [facility] [address] [id number] [address] [place] [phone] March, [facility] [address] [id number] [address] [place] [phone] Feb, [facility] [address] [id number] [address] [place] [phone] Oct, [facility] [address] [id number] [address] [place] [phone] Oct, [facility] [address] [id number] [address] [place] [phone] Nov, [facility] [address] [id number] [address] [place] [phone] Oct, [facility] [address] [id number] [address] [place] [address] Oct, [facility] [address] [id number] [address] [place] [phone] Oct, [facility] [address] [id number] [address] [place] [phone] Oct, IMMUNIZATIONS No Known Immunizations SOCIAL HISTORY Never Assessed REASON FOR VISIT Controlled Med Refill 06/16/2017 PLAN OF CARE VITAL SIGNS MEDICATIONS Medication Instructions Dosage Frequency Start Date End Date Duration S tatus Percocet 7.5-325 MG Orally 3 times a day 1 tablet 8h Jun, 28 days Active RESULTS No Results [...] 1985 Hospitalization History Pneumonia and systemic strep 2001
--- OUTSIDE RECORDS SUMMARY | 2020-04-07 22:51 | XMS REPORT ---
Author Author Ervin MARIE [facility] eClinicalWorks Address Unknown Phone Unavailable Care Team Providers Care Facility Manager Histology Name Role Phone LUIS ALBERTO MARIE CP Unavailable Allergies No Known Allergies Problems Problem Type Condition Code Onset Dates Condition Statu s Problem Type 2 diabetes mellitus wit h complication, without long-term current use of insulin E11.8 Active Problem Neuropathy G62.9 Active Problem Hypertriglyceridemia E78.1 Active Assessment Hypertriglyceridemia E78.1 Active Medications Medication Code System Code Instructions Start Date End Date Status Dosage Lipitor [facility] [address]-12 40 mg Orally Once a day Sep 09, 2016 1 tablet Results No Known Results Summary Purpose eClinicalWorks Submission
--- OUTSIDE RECORDS SUMMARY | 2020-04-07 22:51 | XMS REPORT ---
Author Author Ervin MARIE [facility] Address [address] [place] [address] Care Team Providers Care Mosaic Layer Name Role Phone LUIS ALBERTO MARIE Unavailable PROBLEMS Type Condition ICD9-CM Code [id number] Code Onset Dates Condition S tatus SNOMED Code Problem Right hip pain M25.551 Active 47302 9603800052 Problem Hypertriglyceridemia E78.1 Active 509627816 Problem Neuropathy G62.9 Active 186419131 Problem Type 2 diabetes mellitus wit h complication, without long-term current use of insulin E11.8 Active 06700335 ALLERGIES Unknown Allergies SOCIAL HISTORY No smoking Hx information available PLAN OF CARE VITAL SIGNS MEDICATIONS Medication Instructions Dosage Frequency Start Date End Date Duration S tatus Ultram 50 MG Orally 3 times a day while working 2 tab lets twice daily on days not working Dec, 28 days Active RESULTS No Results PROCEDURES No Known procedures IMMUNIZATIONS No Known Immunizations
--- OUTSIDE RECORDS SUMMARY | 2020-04-07 22:51 | XMS REPORT ---
Author Author Ervin MARIE [facility] eClinicalWorks Address Unknown Phone Unavailable Care Team Providers Care Cooling Pan Tender Name Role Phone LUIS ALBERTO MARIE CP Unavailable Allergies, Adverse Reactions, Alerts Substance Reaction Event Type N.K.D.A. Info Not Available Non Drug Allergy Problems Problem Type Condition Code Onset Dates Condition Statu s Problem Neuropathy G62.9 Active Assessment Type 2 diabetes mellitus wit h complication, without long-term current use of insulin E11.8 Active Problem Type 2 diabetes mellitus wit h complication, without long-term current use of insulin E11.8 Active Assessment Pain of left foot M79.672 Active Assessment Pain in right foot M79.671 Active Assessment Neuropathy G62.9 Active Assessment Right hip pain M25.551 Active Medications Medication Code System Code Instructions Start Date End Date Status Dosage MetFORMIN HCl ER [facility] [address]-89 500 MG Orally O nce a day X 4 days, then 1 tab bid X 4 days then 2 in PM and in 1 AM x 4 days then 2 twice a day Aug 24, 2016 1 tablet with evening meal Victoza [facility] [address]-61 18 MG/3ML Subcutaneous Once a day Aug 24, 2016 .6mg daily X 1 week then 1.2mg daily X 1 week then 1.8mg daily Lyrica [facility] [address]-41 75 MG Orally Twi ce a day X1 week then 1 in AM and 2 in PM X 1 week then 2 twice a day Aug 24, 2016 1 capsule Procedures Procedure Coding System Code Date Office Visit, New Pt., Level 3 CPT-[address] 2015 GLYCATED HEMOGLOBIN TEST CPT-4 89360 Aug 24, 2016 Vital Signs Date/Time: Aug 24, 2016 Cardiac Monitoring Heart Rate 88 bpm Weight 227.0 lbs Height 69.75 in BMI 32.80 Index Blood Pressure Diastolic 98 mmHg Blood Pressure Systolic 146 mmHg Results Name Result Date Reference Range Unit Abnormali ty Flag A1C (IN HOUSE) ----A1C IN HOUSE 10.3 20160824 4.3 - 5.6 % ----Lot [id number] ----Exp date [id number] Summary Purpose eClinicalWorks Submission
--- OUTSIDE RECORDS SUMMARY | 2020-04-07 22:51 | XMS REPORT ---
Author Author Ervin MARIE [facility] Address [address] [place] [address] Care Team Providers Care Carrier Washer Name Role Phone LUIS ALBERTO MARIE Unavailable PROBLEMS Type Condition ICD9-CM Code BCG39-AU Code Onset Dates Condition S tatus SNOMED Code Problem Right hip pain M25.551 Active 20425 9331967096 Problem Hypertriglyceridemia E78.1 Active 710490034 Problem Neuropathy G62.9 Active 987935902 Problem Type 2 diabetes mellitus wit h complication, without long-term current use of insulin E11.8 Active 29620519 ALLERGIES Unknown Allergies SOCIAL HISTORY No smoking Hx information available PLAN OF CARE VITAL SIGNS MEDICATIONS Unknown Medications RESULTS No Results PROCEDURES No Known procedures IMMUNIZATIONS No Known Immunizations
--- OUTSIDE RECORDS SUMMARY | 2020-04-07 22:51 | XMS REPORT | Continuity of Care Document ---
Demographics Preferred Language Unknown Marital Status Unknown Bahai Affiliation Unknown Race Unknown Ethnic Group Unknown Author Organization Unknown Address Unknown Phone Unavailable Allergies Active Description Code Type Severity Reaction Onset Reported/Identified Relationship to Patient Clinical Status Yes No Known Drug Allergies [id number] Drug Allergy Unknown N/A 09/22/2016 Yes THC THC Unknown N/A 11/20/2016 Medications There is no data. Problems Date Dx Coded Attending Type Code Diagnosis Diagnosed By 04/07/2016 MARICRUZ BELEM SOFTWARE EDUCATOR Ot S43.421A SPRAIN OF RIGHT ROTATOR CUFF CAPSULE, IN 04/07/2016 MARICRUZ BELEM SOFTWARE EDUCATOR Ot X39.8XXA OTHER EXPOSURE TO FORCES OF NATURE, INIT 04/07/2016 MARICRUZ BELEM SOFTWARE EDUCATOR Ot Y99 .0 CIVILIAN ACTIVITY DONE FOR INCOME OR PAY 04/07/2016 MARICRUZ BELEM SOFTWARE EDUCATOR Ot S43.421A SPRAIN OF RIGHT ROTATOR CUFF CAPSULE, IN 04/07/2016 MARICRUZ BELEM SOFTWARE EDUCATOR Ot X39.8XXA OTHER EXPOSURE TO FORCES OF NATURE, INIT 04/07/2016 MARICRUZ, BELEM SOFTWARE EDUCATOR Ot Y99 .0 CIVILIAN ACTIVITY DONE FOR INCOME OR PAY 04/23/2016 MARICRUZ BELEM SOFTWARE EDUCATOR Ot S43.421A SPRAIN OF RIGHT ROTATOR CUFF CAPSULE, IN 04/23/2016 MARICRUZ, BELEM SOFTWARE EDUCATOR Ot X39.8XXA OTHER EXPOSURE TO FORCES OF NATURE, INIT 04/23/2016 MARICRUZ, BELEM SOFTWARE EDUCATOR Ot Y99 .0 CIVILIAN ACTIVITY DONE FOR INCOME OR PAY 09/22/2016 TROY FORREST MANUFACTURED BUILDINGS SUPERVISOR Ot R10.31 RIGHT LOWER QUADRANT PAIN 09/22/2016 TROY FORREST MANUFACTURED BUILDINGS SUPERVISOR Ot R93 .8 ABNORMAL FINDINGS ON DIAGNOSTIC IMAGING 09/23/2016 TROY FORREST MANUFACTURED BUILDINGS SUPERVISOR Ot R10.31 RIGHT LOWER QUADRANT PAIN 09/23/2016 TROY FORREST MANUFACTURED BUILDINGS SUPERVISOR Ot R93 .8 ABNORMAL FINDINGS ON DIAGNOSTIC IMAGING 09/26/2016 TROY FORREST MANUFACTURED BUILDINGS SUPERVISOR Ot R10.31 RIGHT LOWER QUADRANT PAIN 09/26/2016 TROY FORREST MANUFACTURED BUILDINGS SUPERVISOR Ot R93 .8 ABNORMAL FINDINGS ON DIAGNOSTIC IMAGING 11/20/2016 RACIEL EDGAR MD Ot E11 .9 TYPE 2 DIABETES MELLITUS WITHOUT COMPLIC 11/20/2016 RACIEL EDGAR MD Ot F17.210 NICOTINE DEPENDENCE, CIGARETTES, UNCOMPL 11/20/2016 RACIEL EDGAR MD Ot G89.29 OTHER CHRONIC PAIN 11/20/2016 RACIEL EDGAR MD Ot M25.551 PAIN IN RIGHT HIP 11/20/2016 RACIEL EDGAR MD Ot R10.31 RIGHT LOWER QUADRANT PAIN 11/20/2016 RACIEL EDGAR MD Ot Z79.84 MCC (CURRENT) USE OF ORAL HYPOGLYC 11/21/2018 TROY FORREST APRN Ot E11.65 TYPE 2 DIABETES MELLITUS WITH HYPERGLYCE 11/21/2018 TROY FORREST APRN Ot E78.00 PURE HYPERCHOLESTEROLEMIA, UNSPECIFIED 11/21/2018 TROY FORREST APRN Ot F12.10 CANNABIS ABUSE, UNCOMPLICATED 11/21/2018 TROY FORREST APRN Ot F17.210 NICOTINE DEPENDENCE, CIGARETTES, UNCOMPL 11/21/2018 TROY FORREST APRN Ot L03.115 CELLULITIS OF RIGHT LOWER LIMB 11/21/2018 TROY FORREST APRN Ot Z98.890 OTHER SPECIFIED POSTPROCEDURAL STATES 11/23/2018 TROY FORREST APRN Ot E11.65 TYPE 2 DIABETES MELLITUS WITH HYPERGLYCE 11/23/2018 TROY FORREST APRN Ot E78.00 PURE HYPERCHOLESTEROLEMIA, UNSPECIFIED 11/23/2018 TROY FORREST APRN Ot F12.10 CANNABIS ABUSE, UNCOMPLICATED 11/23/2018 TROY FORREST APRN Ot F17.210 NICOTINE DEPENDENCE, CIGARETTES, UNCOMPL 11/23/2018 TROY FORREST APRN Ot L03.115 CELLULITIS OF RIGHT LOWER LIMB 11/23/2018 TROY FORREST APRN Ot Z98.890 OTHER SPECIFIED POSTPROCEDURAL STATES Procedures There is no data. Results Test Result Range CBC With Differential/Platelet - 6 11:19 WBC 9.2 x10E3/uL 3.4-10.8 RBC 4.66 x10E6/uL 4.14-5.80 Hemoglobin 14.2 g/dL 12.6-17.7 Hematocrit 41.0 % 37.5-51.0 MCV 88 fL 79-97 MCH 30.5 pg 26.6-33.0 MCHC 34.6 g/dL 31.5-35.7 RDW 12.9 % 12.3-15.4 Platelets 293 x10E3/uL 150-379 Neutrophils 51 % Lymphs 36 % Monocytes 8 % Eos 4 % Basos 1 % Neutrophils (Absolute) 4.8 x10E3/uL 1.4- 7.0 Lymphs (Absolute) 3.3 x10E3/uL 0.7-3.1 Monocytes(Absolute) 0.7 x10E3/uL 0.1-0.9 Eos (Absolute) 0.3 x10E3/uL 0.0-0.4 Baso (Absolute) 0.1 x10E3/uL 0.0-0.2 Immature Granulocytes 0 % Immature Grans (Abs) 0.0 x10E3/uL 0.0-0. 1 Comp. Metabolic Panel (14) - 09/07/16 11 :19 Glucose, Serum 163 mg/dL 65-99 BUN 10 mg/dL 6-24 Creatinine, Serum 0.64 mg/dL 0.76-1.27 eGFR If NonAfricn Am 114 mL/min/1.73 >59 eGFR If Africn Am 132 mL/min/1.73 >5 9 BUN/Creatinine Ratio 16 9-20 Sodium, Serum 138 mmol/L 136-144 Potassium, Serum 4.7 mmol/L 3.5-5.2 Chloride, Serum 99 mmol/L 97-106 Carbon Dioxide, Total 22 mmol/L 18-29 Calcium, Serum 9.3 mg/dL 8.7-10.2 Protein, Total, Serum 6.6 g/dL 6.0-8.5 Albumin, Serum 3.9 g/dL 3.5-5.5 Globulin, Total 2.7 g/dL 1.5-4.5 A/G Ratio 1.4 1.1-2.5 Bilirubin, Total <0.2 mg/dL 0.0-1.2 Alkaline Phosphatase, S 90 IU/L 39-117 AST (SGOT) 13 IU/L 0-40 ALT (SGPT) 21 IU/L 0-44 Lipid Panel - 09/07/16 11:19 Cholesterol, Total 209 mg/dL 100-199 Triglycerides 672 mg/dL 0-149 HDL Cholesterol 29 mg/dL >39 VLDL Cholesterol Calvin Comment mg/dL 5-40 LDL Cholesterol Calc Comment mg/dL 0-99 Complete blood count (CBC) with automate d white blood cell (WBC) differential - 09/22/16 12:37 Blood leukocytes automated count (number/volume) 9.7 10*3/uL 4.3-11.0 Blood erythrocytes automated count (number/volume) 4.82 10*6/uL 4.35-5.85 Venous blood hemoglobin measurement (mass/volume) 14.7 g/dL 13.3-17.7 Blood hematocrit (volume fraction) 42 % 40-54 Automated erythrocyte mean corpuscular volume 87 [ foz_us] 80-99 Automated erythrocyte mean corpuscular h emoglobin (mass per erythrocyte) 31 pg 25-34 Automated erythrocyte mean corpuscular h emoglobin concentration measurement (mass/volume) 35 g/dL 32-36 Automated erythrocyte distribution width ratio 11. 6 % 10.0- 14.5 Automated blood platelet count (count/volume) 281 10*3/uL 130-400 Automated blood platelet mean volume measurement 10.4 [foz_us] 7.4-10.4 Automated blood neutrophils/100 leukocytes 63 % 42-75 Automated blood lymphocytes/100 leukocytes 27 % 12-44 Blood monocytes/100 leukocytes 7 % 0-12 Automated blood eosinophils/100 leukocytes 3 % 0-10 Automated blood basophils/100 leukocytes 1 % 0-10 Blood neutrophils automated count (number/volume) 6.2 10*3 1.8-7.8 Blood lymphocytes automated count (number/volume) 2.6 10*3 1.0-4.0 Blood monocytes automated count (number/volume) 0. 6 10*3 0.0-1.0 Automated eosinophil count 0.3 10*3/uL 0 .0-0.3 Automated blood basophil count (count/volume) 0.1 10*3/uL 0.0-0.1 Comprehensive metabolic panel - 09/22/16 12:37 Serum or plasma sodium measurement (moles/volume) 138 mmol/L 135-145 Serum or plasma potassium measurement (moles/volume) 4.0 mmol/L 3.6-5.0 Serum or plasma chloride measurement (moles/volume) 101 mmol/L 98-107 Carbon dioxide 28 mmol/L 21-32 Serum or plasma anion gap determination (moles/volume) 9 mmol/L 5-14 Serum or plasma urea nitrogen measurement (mass/volume ) 12 mg/dL 7-18 Serum or plasma creatinine measurement (mass/volume) 0.80 mg/dL 0.60-1.30 Serum or plasma urea nitrogen/creatinine mass ratio 15 NRG Serum or plasma creatinine measurement w ith calculation of estimated glomerular filtration rate > NRG Serum or plasma glucose measurement (mass/volume) 188 mg/dL 70-105 Serum or plasma calcium measurement (mass/volume) 9.4 mg/dL 8.5-10.1 Serum or plasma total bilirubin measurement (mass/volu me) 0.4 mg/dL 0.1-1.0 Serum or plasma alkaline phosphatase leander surement (enzymatic activity/volume) 80 U/L 40-136 Serum or plasma aspartate aminotransfera se measurement (enzymatic activity/volume) 15 U/L 5-34 Serum or plasma alanine aminotransferase measurement (enzymatic activity/volume) 18 U/L 0-55 Serum or plasma protein measurement (mass/volume) 7.3 g/dL 6.4-8.2 Serum or plasma albumin measurement (mass/volume) 4.1 g/dL 3.2-4.5 Complete urinalysis with reflex to cultu re - 09/22/16 13:30 Urine color determination YELLOW NRG Urine clarity determination CLEAR NR G Urine pH measurement by test strip 6 5-9 Specific gravity of urine by test strip 1.025 1.016-1.022 Urine protein assay by test strip, semi-quantitative 3+ NEGATIVE Urine glucose detection by automated test strip 2+ NEGATIVE Erythrocytes detection in urine sediment by light micr oscopy NEGATIVE NEGATIVE Urine ketones detection by automated test strip NE GATIVE NEGATIVE Urine nitrite detection by test strip NEGATIVE NEGATIVE Urine total bilirubin detection by test strip NEGA TIVE NEGATIVE Urine urobilinogen measurement by automated test strip (mass/volume) NORMAL NORMAL Urine leukocyte esterase detection by dipstick NEG ATIVE NEGATIVE Automated urine sediment erythrocyte cou nt by microscopy (number/high power field) NONE NRG Automated urine sediment leukocyte count by microscopy (number/high power field) RARE NRG Bacteria detection in urine sediment by light microsco py NEGATIVE NRG Squamous epithelial cells detection in u rine sediment by light microscopy RARE NRG Crystals detection in urine sediment by light microsco py NONE NRG Casts detection in urine sediment by light microscopy NONE NRG Mucus detection in urine sediment by light microscopy SMALL NRG Complete urinalysis with reflex to culture NO NRG Microalb/Creat Ratio, Rand Ur - 6 08:44 Creatinine, Urine 106.5 mg/dL Not Estab. Microalbumin, Urine 234.0 ug/mL Not Esta b. Microalb/Creat Ratio 219.7 mg/g creat 0. 0-30.0 Complete blood count (CBC) with automate d white blood cell (WBC) differential - 11/20/16 08:50 Blood leukocytes automated count (number/volume) 11.6 10*3/uL 4.3-11.0 Blood erythrocytes automated count (number/volume) 4.56 10*6/uL 4.35-5.85 Venous blood hemoglobin measurement (mass/volume) 13.8 g/dL 13.3-17.7 Blood hematocrit (volume fraction) 40 % 40-54 Automated erythrocyte mean corpuscular volume 88 [ foz_us] 80-99 Automated erythrocyte mean corpuscular h emoglobin (mass per erythrocyte) 30 pg 25-34 Automated erythrocyte mean corpuscular h emoglobin concentration measurement (mass/volume) 35 g/dL 32-36 Automated erythrocyte distribution width ratio 11. 9 % 10.0- 14.5 Automated blood platelet count (count/volume) 278 10*3/uL 130-400 Automated blood platelet mean volume measurement 10.4 [foz_us] 7.4-10.4 Automated blood neutrophils/100 leukocytes 64 % 42-75 Automated blood lymphocytes/100 leukocytes 27 % 12-44 Blood monocytes/100 leukocytes 7 % 0-12 Automated blood eosinophils/100 leukocytes 2 % 0-10 Automated blood basophils/100 leukocytes 1 % 0-10 Blood neutrophils automated count (number/volume) 7.4 10*3 1.8-7.8 Blood lymphocytes automated count (number/volume) 3.1 10*3 1.0-4.0 Blood monocytes automated count (number/volume) 0. 8 10*3 0.0-1.0 Automated eosinophil count 0.3 10*3/uL 0 .0-0.3 Automated blood basophil count (count/volume) 0.1 10*3/uL 0.0-0.1 Comprehensive metabolic panel - 11/20/16 08:50 Serum or plasma sodium measurement (moles/volume) 134 mmol/L 135-145 Serum or plasma potassium measurement (moles/volume) 4.4 mmol/L 3.6-5.0 Serum or plasma chloride measurement (moles/volume) 100 mmol/L 98-107 Carbon dioxide 23 mmol/L 21-32 Serum or plasma anion gap determination (moles/volume) 11 mmol/L 5-14 Serum or plasma urea nitrogen measurement (mass/volume ) 13 mg/dL 7-18 Serum or plasma creatinine measurement (mass/volume) 0.82 mg/dL 0.60-1.30 Serum or plasma urea nitrogen/creatinine mass ratio 16 NRG Serum or plasma creatinine measurement w ith calculation of estimated glomerular filtration rate > NRG Serum or plasma glucose measurement (mass/volume) 233 mg/dL 70-105 Serum or plasma calcium measurement (mass/volume) 9.2 mg/dL 8.5-10.1 Serum or plasma total bilirubin measurement (mass/volu me) 0.3 mg/dL 0.1-1.0 Serum or plasma alkaline phosphatase leander surement (enzymatic activity/volume) 89 U/L 40-136 Serum or plasma aspartate aminotransfera se measurement (enzymatic activity/volume) 13 U/L 5-34 Serum or plasma alanine aminotransferase measurement (enzymatic activity/volume) 22 U/L 0-55 Serum or plasma protein measurement (mass/volume) 6.9 g/dL 6.4-8.2 Serum or plasma albumin measurement (mass/volume) 3.8 g/dL 3.2-4.5 Complete urinalysis with reflex to cultu re - 11/20/16 08:55 Urine color determination YELLOW NRG Urine clarity determination CLEAR NR G Urine pH measurement by test strip 5 5-9 Specific gravity of urine by test strip 1.015 1.016-1.022 Urine protein assay by test strip, semi-quantitative 2+ NEGATIVE Urine glucose detection by automated test strip 4+ NEGATIVE Erythrocytes detection in urine sediment by light micr oscopy NEGATIVE NEGATIVE Urine ketones detection by automated test strip NE GATIVE NEGATIVE Urine nitrite detection by test strip NEGATIVE NEGATIVE Urine total bilirubin detection by test strip NEGA TIVE NEGATIVE Urine urobilinogen measurement by automated test strip (mass/volume) NORMAL NORMAL Urine leukocyte esterase detection by dipstick NEG ATIVE NEGATIVE Automated urine sediment erythrocyte cou nt by microscopy (number/high power field) NONE NRG Automated urine sediment leukocyte count by microscopy (number/high power field) NONE NRG Bacteria detection in urine sediment by light microsco py NEGATIVE NRG Squamous epithelial cells detection in u rine sediment by light microscopy NONE NRG Crystals detection in urine sediment by light microsco py NONE NRG Casts detection in urine sediment by light microscopy NONE NRG Mucus detection in urine sediment by light microscopy NEGATIVE NRG Complete urinalysis with reflex to culture NO NRG CBC With Differential/Platelet - 7 09:32 WBC 9.6 x10E3/uL 3.4-10.8 RBC 4.85 x10E6/uL 4.14-5.80 Hemoglobin 14.4 g/dL 12.6-17.7 Hematocrit 42.5 % 37.5-51.0 MCV 88 fL 79-97 MCH 29.7 pg 26.6-33.0 MCHC 33.9 g/dL 31.5-35.7 RDW 13.2 % 12.3-15.4 Platelets 287 x10E3/uL 150-379 Neutrophils 62 % Lymphs 28 % Monocytes 7 % Eos 2 % Basos 1 % Neutrophils (Absolute) 5.9 x10E3/uL 1.4- 7.0 Lymphs (Absolute) 2.7 x10E3/uL 0.7-3.1 Monocytes(Absolute) 0.7 x10E3/uL 0.1-0.9 Eos (Absolute) 0.2 x10E3/uL 0.0-0.4 Baso (Absolute) 0.1 x10E3/uL 0.0-0.2 Immature Granulocytes 0 % Immature Grans (Abs) 0.0 x10E3/uL 0.0-0. 1 Comp. Metabolic Panel (14) - 01/06/17 09 :32 Glucose, Serum 215 mg/dL 65-99 BUN 10 mg/dL 6-24 Creatinine, Serum 0.66 mg/dL 0.76-1.27 eGFR If NonAfricn Am 112 mL/min/1.73 >59 eGFR If Africn Am 129 mL/min/1.73 >5 9 BUN/Creatinine Ratio 15 9-20 Sodium, Serum 137 mmol/L 134-144 Potassium, Serum 4.5 mmol/L 3.5-5.2 Chloride, Serum 98 mmol/L 96-106 Carbon Dioxide, Total 23 mmol/L 18-29 Calcium, Serum 9.3 mg/dL 8.7-10.2 Protein, Total, Serum 7.0 g/dL 6.0-8.5 Albumin, Serum 4.0 g/dL 3.5-5.5 Globulin, Total 3.0 g/dL 1.5-4.5 A/G Ratio 1.3 1.1-2.5 Bilirubin, Total 0.2 mg/dL 0.0-1.2 Alkaline Phosphatase, S 89 IU/L 39-117 AST (SGOT) 17 IU/L 0-40 ALT (SGPT) 23 IU/L 0-44 Lipid Panel - 01/06/17 09:32 Cholesterol, Total 172 mg/dL 100-199 Triglycerides 618 mg/dL 0-149 HDL Cholesterol 27 mg/dL >39 VLDL Cholesterol Calvin Comment mg/dL 5-40 LDL Cholesterol Calc Comment mg/dL 0-99 Urine Culture, Routine - 01/06/17 09:32 Urine Culture, Routine Note Microalb/Creat Ratio, Rand Ur - 7 09:27 Creatinine, Urine 44.7 mg/dL Not Estab. Microalbumin, Urine 222.4 ug/mL Not Esta b. Microalb/Creat Ratio 497.5 mg/g creat 0. 0-30.0 PDM - AMPHETAMINES W/ REFLEX d/l ISOMERS - 01/24/18 09:13 COMMENT NRG Prescribed Drug 2 Lyrica(TM) NRG Amphetamine NEGATIVE ng/mL <250 medMATCH Amphetamine CONSISTENT NRG Methamphetamine NEGATIVE ng/mL <250 medMATCH Methamphetamine CONSISTENT NRG LIPID PANEL - 05/24/18 11:25 CHOLESTEROL, TOTAL 134 mg/dL <200 HDL CHOLESTEROL 33 mg/dL >40 TRIGLYCERIDES 182 mg/dL <150 LDL-CHOLESTEROL 73 mg/dL (calc) NRG CHOL/HDLC RATIO 4.1 (calc) <5.0 NON HDL CHOLESTEROL 101 mg/dL (calc) <13 0 Complete blood count (CBC) with automate d white blood cell (WBC) differential - 11/21/18 16:50 Blood leukocytes automated count (number/volume) 14.7 10*3/uL 4.3-11.0 Blood erythrocytes automated count (number/volume) 4.98 10*6/uL 4.35-5.85 Venous blood hemoglobin measurement (mass/volume) 14.4 g/dL 13.3-17.7 Blood hematocrit (volume fraction) 42 % 40-54 Automated erythrocyte mean corpuscular volume 84 [ foz_us] 80-99 Automated erythrocyte mean corpuscular h emoglobin (mass per erythrocyte) 29 pg 25-34 Automated erythrocyte mean corpuscular h emoglobin concentration measurement (mass/volume) 34 g/dL 32-36 Automated erythrocyte distribution width ratio 11. 9 % 10.0- 14.5 Automated blood platelet count (count/volume) 348 10*3/uL 130-400 Automated blood platelet mean volume measurement 10.8 [foz_us] 7.4-10.4 Automated blood neutrophils/100 leukocytes 82 % 42-75 Automated blood lymphocytes/100 leukocytes 12 % 12-44 Blood monocytes/100 leukocytes 6 % 0-12 Automated blood eosinophils/100 leukocytes 1 % 0-10 Automated blood basophils/100 leukocytes 0 % 0-10 Blood neutrophils automated count (number/volume) 12.0 10*3 1.8-7.8 Blood lymphocytes automated count (number/volume) 1.7 10*3 1.0-4.0 Blood monocytes automated count (number/volume) 0. 9 10*3 0.0-1.0 Automated eosinophil count 0.1 10*3/uL 0 .0-0.3 Automated blood basophil count (count/volume) 0.1 10*3/uL 0.0-0.1 Comprehensive metabolic panel - 11/21/18 16:50 Serum or plasma sodium measurement (moles/volume) 127 mmol/L 135-145 Serum or plasma potassium measurement (moles/volume) 4.7 mmol/L 3.6-5.0 Serum or plasma chloride measurement (moles/volume) 92 mmol/L 98-107 Carbon dioxide 22 mmol/L 21-32 Serum or plasma anion gap determination (moles/volume) 13 mmol/L 5-14 Serum or plasma urea nitrogen measurement (mass/volume ) 15 mg/dL 7-18 Serum or plasma creatinine measurement (mass/volume) 1.12 mg/dL 0.60-1.30 Serum or plasma urea nitrogen/creatinine mass ratio 13 NRG Serum or plasma creatinine measurement w ith calculation of estimated glomerular filtration rate > NRG Serum or plasma glucose measurement (mass/volume) 682 mg/dL 70-105 Serum or plasma calcium measurement (mass/volume) 9.8 mg/dL 8.5-10.1 Serum or plasma total bilirubin measurement (mass/volu me) 0.3 mg/dL 0.1-1.0 Serum or plasma alkaline phosphatase leander surement (enzymatic activity/volume) 140 U/L 40-136 Serum or plasma aspartate aminotransfera se measurement (enzymatic activity/volume) 10 U/L 5-34 Serum or plasma alanine aminotransferase measurement (enzymatic activity/volume) 14 U/L 0-55 Serum or plasma protein measurement (mass/volume) 7.8 g/dL 6.4-8.2 Serum or plasma albumin measurement (mass/volume) 3.9 g/dL 3.2-4.5 CALCIUM CORRECTED 9.9 mg/dL 8.5-10.1 Blood manual differential performed dete ction - 11/21/18 16:50 Blood monocytes/100 leukocytes 7 % NRG Manual blood segmented neutrophils/100 leukocytes 82 % NRG Manual blood lymphocytes/100 leukocytes 8 % NRG Manual blood basophils/100 leukocytes 3 % NRG Blood erythrocyte morphology finding identification NORMAL NRG Gram stain microscopy - 11/21/18 17:15 Gram stain microscopy Moderate Gram positive cocci in clusters NRG Bacteria identification in wound by cult ure - 11/21/18 17:15 Bacteria identification in wound by culture SEE RE PORT NRG FREE TEXT EXTERNAL ID REPORTED 11/22/18 17:05 NRG QUANTITY OF GROWTH . [facility] FREE TEXT ENTRY 2 SENSITIVITY REPORTED 11/23/18 09: 05 NRG RML Sensitivity Panel - 11/21/18 17:15 Oxacillin susceptibility test by minimum inhibitory co ncentration R NRG Clindamycin susceptibility test by minimum inhibitory concentration <= NRG Erythromycin susceptibility test by minimum inhibitory concentration > NRG Trimethoprim/sulfamethoxazole susceptibi lity test by minimum inhibitoryconcentration S NRG Vancomycin susceptibility test by minimum inhibitory c oncentration 1 NRG Levofloxacin susceptibility test by minimum inhibitory concentration 4 NRG Rifampin susceptibility test by minimum inhibitory con centration <= NRG Cefazolin susceptibility test by minimum inhibitory co ncentration > NRG Linezolid susceptibility test by minimum inhibitory co ncentration 2 NRG Penicillin G susceptibility test by minimum inhibitory concentration > NRG Moxifloxacin susceptibility test by minimum inhibitory concentration S NRG Minocycline susc YANELY <= NRG Capillary blood glucose measurement by g lucometer (mass/volume) - 11/21/18 18:44 Capillary blood glucose measurement by glucometer (mas s/volume) 489 mg/dL 70-110 Capillary blood glucose measurement by g lucometer (mass/volume) - 11/21/18 19:44 Capillary blood glucose measurement by glucometer (mas s/volume) 340 mg/dL 70-110 Capillary blood glucose measurement by g lucometer (mass/volume) - 11/21/18 20:29 Capillary blood glucose measurement by glucometer (mas s/volume) 254 mg/dL 70-110 Encounters ACCT No. Visit Date/Time Discharge Status Pt. Type Provider Facility Loc./Unit Complaint [id number] 01/07/2017 08:40:00 Document Registration [id number] 11/21/2018 16:15:00 019 20:38:00 DIS Emergency TROY FORREST APRN [facility] ER DIABETIC/R LEG INFECTIO N [id number] 11/20/2016 08:29:00 017 11:19:00 DIS Emergency RACIEL EDGAR MD [facility] ER PELVIC PAIN [id number] 09/22/2016 12:27:00 016 14:10:00 DIS Emergency TROY FORREST APRN [facility] ER RIGHT SIDE/LOWER ABD/BA CK PAIN [id number] 04/23/2016 09:09:00 016 09:39:00 DIS Outpatient BELEM ALCANTARA [facility] REHAB R ROTATOR CUFF APRIAN I NJURI W TENDONITIS [id number] 03/24/2016 11:21:00 016 23:59:59 CLS Outpatient COLTHARP ROSALBA ROSSI A [facility] OCC [id number] 01/08/2017 14:09:00 Document Registration [id number] 09/08/2016 08:35:00 Document Registration [id number] 04/22/2017 10:09:00 Document Registration [id number] 05/24/2018 11:20:00 05/24/2018 23:59:5 9 CLS Outpatient LUIS ALBERTO MARIE APRN [facility] [id number] 05/24/2018 11:20:00 Document Registration [id number] 01/24/2018 08:20:00 Document Registration [id number] 09/29/2016 13:05:00 Document Registration
--- OUTSIDE RECORDS SUMMARY | 2020-04-07 22:51 | XMS REPORT ---
Author Author Ervin MARIE [facility] Address [address] [place] [address] Care Team Providers Care Information Assoc Name Role Phone LUIS ALBERTO MARIE Unavailable PROBLEMS Type Condition ICD9-CM Code [id number] Code Onset Dates Condition S tatus SNOMED Code Problem Hypertriglyceridemia E78.1 Active 124917957 Problem Type 2 diabetes mellitus wit h complication, without long-term current use of insulin E11.8 Active 46242223 Assessment Right hip pain M25.551 Sep, Active 3 [id number] Problem Neuropathy G62.9 Active [id number] Assessment Type 2 diabetes mellitus wit h complication, without long-term current use of insulin E11.8 Sep, Active [id number] ALLERGIES Substance Reaction Event Type Date Status N.K.D.A. Unknown Non Drug Allergy Sep, Unknown SOCIAL HISTORY No smoking Hx information available PLAN OF CARE VITAL SIGNS Height 69.75 in 2016-09-28 Weight 236.1 lbs 2016-09-28 Heart Rate 100 bpm 2016-09-28 Respiratory Rate 20 2016-09-28 BMI 34.12 kg/m2 2016-09-28 Blood pressure systolic 151 mmHg 2016-09-28 Blood pressure diastolic 89 mmHg 2016-09-28 MEDICATIONS Medication Instructions Dosage Frequency Start Date End Date Duration S tatus Victoza 18 MG/3ML Subcutaneous Once a day .6mg daily X 1 w [place] then 1.2mg daily X 1 week then 1.8mg daily 24h Aug, Acti ve MetFORMIN HCl ER 500 MG Orally Once a day X 4 days, then 1 tab bid X 4 days then 2 in PM and in 1 AM x 4 days then 2 twice a day 1 tablet with evening meal Aug, Active Tramadol HCl 50 mg Orally 2 times a day 1 tablet as needed 12h 21 2015 Active Lyrica 75 MG Orally 2 times a day 2 capsules 12h Aug, 30 days Active Lipitor 40 mg Orally Once a day 1 tablet 24h Sep, 90 days Active RESULTS Name Result Date Reference Range URINE DRUG SCREEN (IN HOUSE) 2016-09-28 Lot # [id number] Exp date Control + COCAINE Negative AMPH Negative MTD Negative THC Negative OPIATE Negative BENZO Negative PCP Negative BAR Negative OXY Negative MAMP Negative TCA Negative BUP MDMA Negative MICROALBUMIN/CREATININE RATIO, URINE 2016-09-28 Creatinine, Urine 106.5 Not Estab. Microalbumin, Urine 234.0 Not Estab. Microalb/Creat Ratio 219.7 0.0-30.0 MICROALBUMIN, URINE (IN HOUSE) 2016-09-28 MICROALBUMIN ABNORMAL Lot # [id number] Exp date Clarity Clear Color Yellow ALB 150 CRE 200 A:C (IN HOUSE) 30-300 Control + Control - Lot # [id number] Exp date UA LONG DIP (IN HOUSE) 2016-09-28 Lot # [id number] Exp date Clarity Clear Color Yellow Odor Non GLU 1+ JUAN Negative KET Trace SG >=1.030 BLO Trace-Intact pH 5.5 Protein 2+ URO 0.2 NIT Negative SARY Negative Lot # [id number] Exp date PROCEDURES Procedure Date Ordered Related Diagnosis Body Site MICROALBUMIN, SEMIQUANT Sep 28, 2016 URINALYSIS, AUTO, W/O SCOPE Sep 28, 2016 MICROALBUMIN, QUANTITATIVE Sep 28, 2016 ASSAY OF URINE CREATININE Sep 28, 2016 Office Visit, Est Pt., Level 3 Sep 28, 2016 DRUG SCREEN NON TLC DEVICES Sep 28, 2016 IMMUNIZATIONS No Known Immunizations
[2020-04-07 23:02] VITALS: BP 134/70
--- NOTE | 2020-04-07 23:20 | NUR ---
X-ray in pt room. Pt refused to move affected extremity and continued to cuss at [facility]. Pt got up from chair and stated he was leaving.
== END 2020-04-07 23:22 | disposition left against medical advice (07) ==
LOC: EDUNIT# 22:41 → ER 22:43
DX: M25.521 Pain in right elbow (principal); W22.8XXA Striking against or struck by other objects, initial encounter
CPT/HCPCS: 99282

== ENCOUNTER 2020-08-13 22:57 | Emergency (ER) | payer SELFPAY ==
[~2020-08-13] VITALS: Ht 175 cm; Wt 77.0 kg
--- NOTE | 2020-08-13 23:41 | ED Upper Extremity ---
General Chief Complaint: General Problems/Pain Stated Complaint: SHOULDER PAIN;RIB PAIN Source: patient (LIMITED HISTORIAN) History of Present Illness Date Seen by Provider: Aug 13, 2020 Time Seen by Provider: 23:25 Initial Comments PT ARRIVES VIA WALKING C/O LEFT SHOULDER PAIN X 1 WEEK NO RECENT INJURY, BUT 2 MONTHS AGO, HE WRECKED HIS TRUCK IN [employer] [place]--HIT A POLE--DID NOT SEEK CARE AT THAT TIME AND DID NOT HAVE ANY OBVIOUS INJURIES NO PARESTHESIAS OR MOTOR DEFICITS NO SWELLING OR BRUISING TO THE AREA HURTS TO MOVE HIS LEFT SHOULDER/ARM STATES HE TOOK SOMEONE ELSE'S "MUSCLE RELAXANT" AT 1800 TONIGHT, BUT HAS NO IDEA EXACTLY WHAT THE MEDICATION WAS OTHERWISE HAS NOT TAKEN ANYTHING ELSE FOR PAIN PT IS RIGHT HANDED PULLED THIS SHOULDER AT WORK YEARS AGO, BUT NO SURGERY AND DID NOT FOLLOW UP PT HAS DIABETES, HTN, NEUROPATHY--IS NON COMPLIANT WITH MEDICATIONS PT HAS EXTENSIVE HISTORY OF IV DRUG USE--CLAIMS NO RECENT USE PCP: [facility] Allergies and Home Medications Allergies Uncoded Allergies: THC (Allergy, Unknown, 11/20/16) Home Medications Cephalexin 500 Mg Capsule, 500 MG PO TID Prescribed by: TROY FORREST on 11/21/182032 Naproxen 500 Mg Tablet.dr, 500 MG PO BID Prescribed by: SARA SMALLWOOD on 08/14/209 Sulfamethoxazole/Trimethoprim 1 Each Tablet, 1 EACH PO BID Prescribed by: TROY FORREST on 11/21/182032 Patient Home Medication List Home Medication List Reviewed: Yes Review of Systems Constitutional: no symptoms reported Respiratory: no symptoms reported Cardiovascular: no symptoms reported Gastrointestinal: no symptoms reported Musculoskeletal: see HPI Skin: no symptoms reported Psychiatric/Neurological: No Symptoms Reported Past Fgajyki-Pkzwic-Uwisrd Hx Past Med/Social Hx: Reviewed and Corrections made Patient Social History Alcohol Use: Occasionally Uses Alcohol Beverage of Choice: Beer Recreational Drug Use: Yes (+IV DRUG USE-METH, COCAINE, ALSO THC, MUSHROOMS, "EVERYTHING" ) Smoking Status: Current Everyday Smoker Type Used: Cigarettes Recent Foreign Travel: No Contact w/Someone Who Travel: No Recent Hopitalizations: No Immunizations Up To Date Tetanus Booster (TDap): Less than 5yrs Seasonal Allergies Seasonal Allergies: No Past Medical History Surgeries: Yes Appendectomy, Orthopedic Respiratory: No Cardiac: Yes (REFUSES TO TAKE MEDICATIONS) High Cholesterol, Hypertension Neurological: No Genitourinary: No Gastrointestinal: No Musculoskeletal: Yes Chronic Back Pain Endocrine: Yes (NON COMPLAINT) Diabetes, Non-Insulin dep Cancer: No Psychosocial: No Integumentary: No Family Medical History SOCIAL HISTORY: -OCCASIONAL ETOH USE -EXTENSIVE DRUG ABUSE, INCLUDING IV COCAINE AND METH, ALSO THC, MUSHROOMS, "EVERYTHING" -SMOKES 1 PPD Physical Exam Vital Signs Vital Signs - First Documented 08/13/20 23:10 Temp 37.1 Pulse 96 Resp 20 B/P (MAP) 142/77 (98) Pulse Ox 99 Capillary Refill : Height, Weight, BMI Height: 5'10.00" Weight: 230lbs. oz. 104.963890hw; 26.00 BMI Method:Stated General Appearance: WD/WN, no apparent distress, other (SLEEPING SOUNDLY. FILTHY, UNKEMPT) Cardiovascular: normal peripheral pulses, regular rate, rhythm, no murmur Respiratory: chest non-tender, normal breath sounds, no respiratory distress, no accessory muscle use Back: normal inspection, no CVA tenderness, no vertebral tenderness Shoulder: bone tenderness (LEFT SHOULDER TENDERNESS); No deformity, No ecchymosis; limited ROM, pain, soft tissue tenderness; No swelling Elbow/Forearm: normal inspection, non-tender, no evidence of injury, normal ROM Wrist: Yes normal inspection, Yes non-tender, Yes no evidence of injury, Yes normal ROM Hand: normal inspection, non-tender, no evidence of injury, normal ROM Neurologic/Tendon: normal sensation, normal motor functions, normal tendon functions Neurologic/Psychiatric: [employer] II-XII nml as tested, no motor/sensory deficits, alert, oriented x 3 Skin: normal color, warm/dry, tattoos/piercings (EXTENSIVE TATTOOS; MULTIPLE OLD TRACK DIAZ TO BOTH ARMS.) Progress/Results/Core Measures Results/Orders My Orders Orders - SARA SMALLWOOD DO Chest Pa/Lat (2 View) (08/14/20 00:28) Shoulder, Left, 3 Views (08/14/20 00:28) Ed Ortho/Other Supplies Order (08/14/20 00:36) Rx-Naproxen (Rx-Naprosyn) (08/14/20 00:36) Vital Signs/I&O 08/13/20 23:10 Temp 37.1 Pulse 96 Resp 20 B/P (MAP) 142/77 (98) Pulse Ox 99 Progress Progress Note : Progress Note SLEPT THROUGH ENTIRE ER STAY Diagnostic Imaging Comments CXR--NO ACUTE PROCESS, PENDING RADIOLOGIST REVIEW XRAYS LEFT SHOULDER--NO ACUTE PROCESS, PENDING RADIOLOGIST REVIEW Reviewed: Reviewed by Me Departure Impression Primary Impression: Left shoulder pain Disposition: HOME, SELF-CARE Condition: Stable Departure-Patient Inst. Referrals: [facility] (PCP/Family) Primary Care Physician Patient Instructions: How to Use a Shoulder Sling, Shoulder Pain (DC) Add. Discharge Instructions: WEAR SLING NEEDED FOR COMFORT ALTERNATE ICE AND HEAT TO AREA AT 20 MINUTE INTERVALS FOLLOW UP WITH [facility] IN 1 WEEK FOR FURTHER CARE--CALL IN AM TO SCHEDULE APPOINTMENT All discharge instructions reviewed with patient and/or family. Voiced un derstanding. Scripts Naproxen (Naproxen) 500 Mg Tablet. 500 MG PO BID, #20 TAB Prov: SARA SMALLWOOD DO 08/14/20 SARA SMALLWOOD DO Aug 13, 2020 23:41
[2020-08-14] MEDS ORDERED: RX-NAPROXEN (NAPROSYN) 250 MG TAB PPK#4 PO STA (00:36)
[2020-08-14] MEDS ORDERED: NAPR500T8 PO (00:39)
[2020-08-14 00:40] VITALS: BP 150/88
--- NOTE | 2020-08-14 07:46 | Diagnostic Imaging Report ---
INDICATION: Left shoulder pain. FINDINGS: PA and lateral views. The lungs are well-aerated and clear. There is no air-trapping. The heart is not enlarged. No pulmonary edema or hilar adenopathy. No pneumothorax or pleural effusion. No bony abnormalities. IMPRESSION: Negative PA and lateral chest. Dictated by: Dictated on workstation # [id number]
--- NOTE | 2020-08-14 07:59 | Diagnostic Imaging Report ---
INDICATION: Left shoulder pain. FINDINGS: 3 views. Glenohumeral joints in good alignment. Articulating surfaces are smooth. Joint spaces well-maintained. No fractures. AC shows good alignment with mild hypertrophic change. No soft tissue calcification about the shoulder. IMPRESSION: Mild degenerative changes of the left shoulder with no acute abnormalities. Dictated by: Dictated on workstation # [id number]
== END 2020-08-14 00:40 | disposition home or self-care (01) ==
LOC: EDUNIT# 22:57 → ER 22:58
DX: M25.512 Pain in left shoulder (principal); I10 Essential (primary) hypertension; E11.40 Type 2 diabetes mellitus with diabetic neuropathy, unspecified; G89.29 Other chronic pain; M54.9 Dorsalgia, unspecified; F17.210 Nicotine dependence, cigarettes, uncomplicated; Z91.14 Patient's other noncompliance with medication regimen
CPT/HCPCS: 71046; 73030; 99283; A4565

== ENCOUNTER 2022-05-06 16:14 | Inpatient (IN) | payer SELFPAY ==
[~2022-05-06] VITALS: Ht 177.8 cm; Wt 89.3 kg
[~2022-05-06 16:14] MED LIST changes: +NAPR500T8 PO; -SULF1TAB35 PO; +SULF1TAB38 PO
[2022-05-06] MEDS ORDERED: morphine INJ 10 MG/ML 1ML (SYR OR VIAL) IVP STA (16:40)
--- NOTE | 2022-05-06 16:55 | Diagnostic Imaging Report ---
INDICATION: Chills. COMPARISON: None. FINDINGS: A single frontal view of the chest demonstrates normal heart size and pulmonary vascularity. The lungs are well aerated and clear. No large pleural effusion or pneumothorax is seen. The visualized osseous structures show no acute abnormalities. IMPRESSION: No acute cardiopulmonary process. Dictated by: Dictated on workstation # [id number]
--- NOTE | 2022-05-06 16:57 | Diagnostic Imaging Report ---
INDICATION: ankle pain COMPARISON: None. FINDINGS: Three views of the right ankle were obtained. There is no acute fracture or dislocation. No focal osseous lesions are seen. There is moderate generalized soft tissue swelling and edema. There are no radiopaque foreign bodies. IMPRESSION: 1. Moderate generalized soft tissue swelling and edema of the right ankle, but no underlying acute osseous abnormality. Dictated by: Dictated on workstation # [id number]
--- NOTE | 2022-05-06 17:00 | Diagnostic Imaging Report ---
INDICATION: Foot pain. COMPARISON: None available. TECHNIQUE: Three radiographs of the right foot were obtained dated May 06, 2022. FINDINGS: Focal lucencies and fragmentation are noted associated with the tuft of the 1st digit distal phalanx. Soft tissue gas is suggested between the 1st and 2nd toe bases. No additional fracture or dislocation. Small posterior and plantar calcaneal enthesophytes. The Lisfranc joint is well aligned. Mild scattered degenerative changes. Soft tissue swelling involving the mid and forefoot. Background vascular calcifications. IMPRESSION: 1. Fragmentation and lucencies associated with the tuft of the 1st digit distal phalanx. This may relate to osteomyelitis versus age-indeterminate fracture. Recommend clinical correlation. 2. Mild scattered degenerative changes. 3. Soft tissue swelling involving the mid and forefoot with mild soft tissue gas suggested between the 1st and 2nd toes. This may relate to underlying infection or soft tissue wound. Recommend direct visualization. Dictated by: Dictated on workstation # [id number]
[2022-05-06 17:05] LABS: BASOPHILS # (AUTO) 0.1 10^3/uL (0.0-0.1); BASOPHILS % (AUTO) 0 % (0-10); EOSINOPHILS # (AUTO) 0.2 10^3/uL (0.0-0.3); EOSINOPHILS % (AUTO) 1 % (0-10); HEMATOCRIT 30 % (40-54); HEMOGLOBIN 9.9 g/dL (13.3-17.7); LYMPHOCYTES # (AUTO) 1.7 10^3/uL (1.0-4.0); LYMPHOCYTES % (AUTO) 7 % (12-44); MEAN CORPUSCULAR HEMOGLOBIN 28 pg (25-34); MEAN CORPUSCULAR HGB CONC 33 g/dL (32-36); MEAN CORPUSCULAR VOLUME 86 fL (80-99); MEAN PLATELET VOLUME 9.8 fL (9.0-12.2); MONOCYTES # (AUTO) 1.2 10^3/uL (0.0-1.0); MONOCYTES % (AUTO) 5 % (0-12); NEUTROPHILS # (AUTO) 20.7 10^3/uL (1.8-7.8); NEUTROPHILS % (AUTO) 86 % (42-75); PLATELET COUNT 389 10^3/uL (130-400)
[2022-05-06 17:17] LABS: INR 1.1 (0.8-1.4); PROTHROMBIN TIME PATIENT 14.3 SEC (12.2-14.7)
[2022-05-06 17:18] LABS: POTASSIUM 3.8 MMOL/L (3.6-5.0)
[2022-05-06 17:19] LABS: CALCIUM 9.1 MG/DL (8.5-10.1)
[2022-05-06 17:20] LABS: TOTAL PROTEIN 7.5 GM/DL (6.4-8.2)
[2022-05-06 17:22] LABS: BILIRUBIN,TOTAL 0.3 MG/DL (0.1-1.0)
[2022-05-06 17:24] LABS: CREATININE SERUM 0.84 MG/DL (0.60-1.30)
[2022-05-06 17:36] LABS: LYMPHOCYTES % (MANUAL) 5 %; MONOCYTES % (MANUAL) 4 %; NEUTROPHILS % (MANUAL) 91 %; RBC MORPH NORMAL
[2022-05-06] MEDS ORDERED: PIPERACILLIN SODIUM/TAZOBACTAM 4.5 GM in NS (IVPB) 100 ML IV ONE (18:00)
--- NOTE | 2022-05-06 18:17 | ED General ---
General Chief Complaint: Lower Extremity Stated Complaint: FOOT PAIN Nursing Triage Note: PT TO FT 3 ON CRUTCHES WITH C/O INJURING L LEG/ANKLE LAST WEDNESDAY. PT HAD KNOWN ABSCESS/ WOUND ON THE BOTTOM OF L FOOT. PT STATES HE IS DIABETIC BUT DOES NOT TAKE HIS DM MEDS Source of Information: Patient Exam Limitations: No Limitations History of Present Illness Date Seen by Provider: May 06, 2022 Time Seen by Provider: 16:25 Initial Comments Mr. Montilla is a 56-year-old gentleman who presents to the emergency room with complaints of pain to the right foot and ankle. He presumes this to be related to an injury that occurred over the weekend in which she stepped on a metal object. He has a break in the skin on the ball of his foot which he states is actually an old diabetic ulcer wound he has had for many months. He reports that pus drained out of this ulcer over the weekend. He has severe edema of the foot, ankle, and lower leg with hot erythema extending up to the proximal calf, almost to the knee. This erythema is fairly well demarcated and has the appearance of cellulitis. There are blisters on the second toe with dusky discoloration suspicious for skin necrosis. Patient has type 2 diabetes and reports that he has not been taking any medication for his diabetes. He is afebrile at present. He reports his pain is 4 out of 10. Allergies and Home Medications Allergies Uncoded Allergies: THC (Allergy, Unknown, 11/20/16) Patient Home Medication List Home Medication List Reviewed: Yes Atorvastatin Calcium (Atorvastatin Calcium) 40 Mg Tablet, (Reported) Entered as Reported by: COSMO FERRARO on 11/20/16843 Cephalexin (Keflex) 500 Mg Capsule, 500 MG PO TID Prescribed by: TROY FORREST on 11/21/182032 Liraglutide (Victoza 3-Faheem) 0.6 Mg/0.1 Ml Pen.injctr, (Reported) Entered as Reported by: COSMO FERRARO on 11/20/16843 Naproxen (Naproxen) 500 Mg Tablet.dr, 500 MG PO BID Prescribed by: SARA SMALLWOOD on 08/14/20 003 Pregabalin (Lyrica) 75 Mg Capsule, (Reported) Entered as Reported by: COSMO FERRARO on 11/20/16843 Sulfamethoxazole/Trimethoprim (Bactrim Ds Tablet) 1 Each Tablet, 1 EACH PO BID Prescribed by: TROY FORREST on 11/21/182032 Tramadol HCl (Tramadol HCl) 50 Mg Tablet, (Reported) Entered as Reported by: COSMO FERRARO on 11/20/16 0844 Review of Systems Review of Systems Constitutional: no symptoms reported EENTM: no symptoms reported Respiratory: no symptoms reported Cardiovascular: no symptoms reported Gastrointestinal: no symptoms reported Genitourinary: no symptoms reported Musculoskeletal: see HPI Skin: see HPI Psychiatric/Neurological: No Symptoms Reported Hematologic/Lymphatic: No Symptoms Reported Immunological/Allergic: no symptoms reported Past Cfrbvnv-Hgosuo-Xrnhwp Hx Patient Social History Tobacco Use?: No Use of E-Cig and/or Vaping dev: No Substance use?: No Alcohol Use?: Yes Alcohol type: Beer Alcohol Frequency: Once in a while Pt feels they are or have been: No Immunizations Up To Date Tetanus Booster (TDap): Less than 5yrs Influenza Vaccine Up-to-Date: No; Not Current Seasonal Allergies Seasonal Allergies: No Past Medical History Surgery/Hospitalization HX: DM FEMUR, ARM, HERNIA Surgeries: Yes Abdominal (Hernia), Appendectomy, Orthopedic Respiratory: No Cardiac: Yes (REFUSES TO TAKE MEDICATIONS) High Cholesterol, Hypertension Neurological: No Genitourinary: No Gastrointestinal: No Musculoskeletal: Yes Chronic Back Pain Endocrine: Yes (NON COMPLAINT) Diabetes, Non-Insulin dep Cancer: No Psychosocial: No Integumentary: Yes (Chronic ulcers on the anterior left ankle and the balls of each foot) Family Medical History SOCIAL HISTORY: -OCCASIONAL ETOH USE -EXTENSIVE DRUG ABUSE, INCLUDING IV COCAINE AND METH, ALSO THC, MUSHROOMS, "EVERYTHING" -SMOKES 1 PPD Physical Exam-Suspected Sepsis Physical Exam Vital Signs Vital Signs - First Documented 05/06/22 16:27 Temp 37.6 Pulse 91 Resp 16 B/P (MAP) 148/53 (84) Capillary Refill : Blood Pressure Mean: 84 Height, Weight, BMI Height: 5'10.00" Weight: 230lbs. oz. 104.591924od; 25.00 BMI Method:Stated General Appearance: WD/WN, Anxious (Tearful), Mild Distress HEENT: PERRL/EOMI, Normal ENT Inspection Neck: Normal Inspection; No JVD Respiratory: Lungs Clear, Normal Breath Sounds, No Accessory Muscle Use Cardiovascular: Regular Rate, Rhythm, No Edema, No Murmur, Normal Peripheral Pulses Gastrointestinal: Non Tender, Soft Extremity: Other (Marked edema, erythema, and warmth of the right foot and right lower leg. There is blistering with dusky skin coloring on the right second toe suspicious for skin necrosis. Pedal pulses palpable. Capillary refill intact on the toe tips. Open ulcer on the ball of both feet. Chronic ulcer stated as unchanged on the left anterior ankle) Neurologic/Psychiatric: Alert, Oriented x3, No Motor/Sensory Deficits, manager of financial planning II- XII Norm as Tested, Other (Anxious, tearful) Skin: warm/dry, other (Skin warm and dry without rashes except for otherwise noted on the right lower extremity. Chronic ulcer stated as unchanged on the anterior left ankle) Focused Exam Lactate Level 05/06/22 16:47: Lactic Acid Level 1.18 Lactic Acid Level Laboratory Tests Test 05/06/22 16:47 Lactic Acid Level 1.18 MMOL/L (0.50-2.00) Progress/Results/Core Measures Suspected Sepsis SIRS Temperature: Pulse: 91 Respiratory Rate: 16 Laboratory Tests 05/06/22 16:47: White Blood Count 24.0H Blood Pressure 148 /53 Mean: 84 05/06/22 16:47: Lactic Acid Level 1.18 Laboratory Tests 05/06/22 16:47: Creatinine 0.84, INR Comment 1.1, Platelet Count 389, Total Bilirubin 0.3 Results/Orders Lab Results Laboratory Tests Test 05/06/22 16:47 Range/Units White Blood Count 24.0 H 4.3-11.0 10^3/uL Red Blood Count 3.48 L 4.30-5.52 10^6/uL Hemoglobin 9.9 L 13.3-17.7 g/dL Hematocrit 30 L 40-54 % Mean Corpuscular Volume 86 80-99 fL Mean Corpuscular Hemoglobin 28 25-34 pg Mean Corpuscular Hemoglobin Concent 33 32-36 g/dL Red Cell Distribution Width 13.0 10.0-14.5 % Platelet Count 389 130-400 10^3/uL Mean Platelet Volume 9.8 9.0-12.2 fL Immature Granulocyte % (Auto) 1 % Neutrophils (%) (Auto) 86 H 42-75 % Lymphocytes (%) (Auto) 7 L 12-44 % Monocytes (%) (Auto) 5 0-12 % Eosinophils (%) (Auto) 1 0-10 % Basophils (%) (Auto) 0 0-10 % Neutrophils # (Auto) 20.7 H 1.8-7.8 10^3/uL Lymphocytes # (Auto) 1.7 1.0-4.0 10^3/uL Monocytes # (Auto) 1.2 H 0.0-1.0 10^3/uL Eosinophils # (Auto) 0.2 0.0-0.3 10^3/uL Basophils # (Auto) 0.1 0.0-0.1 10^3/uL Immature Granulocyte # (Auto) 0.2 H 0.0-0.1 10^3/uL Neutrophils % (Manual) 91 % Lymphocytes % (Manual) 5 % Monocytes % (Manual) 4 % Blood Morphology Comment NORMAL Prothrombin Time 14.3 12.2-14.7 SEC INR Comment 1.1 0.8-1.4 Activated Partial Thromboplast Time 38 H 24-35 SEC Sodium Level 131 L 135-145 MMOL/L Potassium Level 3.8 3.6-5.0 MMOL/L Chloride Level 97 L 98-107 MMOL/L Carbon Dioxide Level 24 21-32 MMOL/L Anion Gap 10 5-14 MMOL/L Blood Urea Nitrogen 16 7-18 MG/DL Creatinine 0.84 0.60-1.30 MG/DL Estimat Glomerular Filtration Rate 102 BUN/Creatinine Ratio 19 Glucose Level 188 H 70-105 MG/DL Lactic Acid Level 1.18 0.50-2.00 MMOL/L Calcium Level 9.1 8.5-10.1 MG/DL Corrected Calcium 9.9 8.5-10.1 MG/DL Total Bilirubin 0.3 0.1-1.0 MG/DL Aspartate Amino Transf (AST/SGOT) 13 5-34 U/L Alanine Aminotransferase (ALT/SGPT) 12 0-55 U/L Alkaline Phosphatase 121 40-136 U/L C-Reactive Protein High Sensitivity 15.24 H 0.00-0.50 MG/DL Total Protein 7.5 6.4-8.2 GM/DL Albumin 3.0 L 3.2-4.5 GM/DL Procalcitonin 0.67 H <0.10 NG/ML My Orders Yisel - VIVIANA MARIA MD Chest 1 View, Ap/Pa Only (05/06/22 16:34) Foot, Right, 3 View (05/06/22 16:34) Ankle, Right, 3 Views (05/06/22 16:34) Cbc With Automated Diff (05/06/22 16:36) Comprehensive Metabolic Panel (05/06/22 16:36) Blood Culture (05/06/22 16:36) Sputum Culture (05/06/22 16:36) Protime With Inr (05/06/22 16:36) Partial Thromboplastin Time (05/06/22 16:36) Ed Iv/Invasive Line Start (05/06/22 16:36) Vital Signs Adult Sepsis Patie Q15M (05/06/22 16:36) O2 (05/06/22 16:36) Remove Rings In Anticipation O (05/06/22 16:36) Lactic Acid Analyzer (05/06/22 16:36) Hs C Reactive Protein (05/06/22 16:36) Procalcitonin (Pct) (05/06/22 16:36) Morphine Injection (Morphine Injection (05/06/22 16:40) Manual Differential (05/06/22 16:47) Piperacillin Sodium/Tazobactam (Zosyn Vi (05/06/22 18:00) Code/Resuscitation (05/06/22 18:09) Vital Signs/I&O 05/06/22 16:27 Temp 37.6 Pulse 91 Resp 16 B/P (MAP) 148/53 (84) Capillary Refill : Blood Pressure Mean: 84 Progress Note : Time: 18:25 Progress Note Patient was interviewed and examined shortly after arrival. Septic work-up was pursued. Patient technically meets sepsis criteria with a heart rate greater than 90 and significant leukocytosis in the context of cellulitis. Antibiotic therapy is being started with Zosyn after blood cultures. Vancomycin will be added. Pain was treated with morphine. Dr. Wolfe was consulted and case was discussed with him by phone. He would like to treat conservatively overnight with IV antibiotics. He will assess the infection tomorrow and for now did not request any further imaging. Case was discussed with Dr. Bhandari who accepts admission. CODE STATUS reviewed with patient who would like to remain full code. Diagnostic Imaging Diagonstic Imaging: Xray Plain Films/CT/US/NM/MRI: ankle Comments NAME: JAQUAN MONTILLA [facility] REC#: [id number] PT STATUS: REG ER : 1965 PHYSICIAN: VIVIANA MARIA MD ADMIT DATE: 05/06/22/ER Draft Date of Exam:05/06/22 ANKLE, RIGHT, 3 VIEWS INDICATION: ankle pain COMPARISON: None. FINDINGS: Three views of the right ankle were obtained. There is no acute fracture or dislocation. No focal osseous lesions are seen. There is moderate generalized soft tissue swelling and edema. There are no radiopaque foreign bodies. IMPRESSION: 1. Moderate generalized soft tissue swelling and edema of the right ankle, but no underlying acute osseous abnormality. Dictated on workstation # [id number] Dict: 05/06/22 1653 Trans: 05/06/22 165 AS6 [id number] Interpreted by: EUNICE HEALY MD Diagonstic Imaging: Xray Plain Films/CT/US/NM/MRI: other (Right foot) Comments X-rays of right foot viewed by me and report reviewed. See report below: NAME: JAQUAN MONTILLA [facility] REC#: [id number] PT STATUS: REG ER : 1965 PHYSICIAN: VIVIANA MARIA MD ADMIT DATE: 05/06/22/ER Signed Date of Exam:05/06/22 FOOT, RIGHT, 3 VIEW INDICATION: Foot pain. COMPARISON: None available. TECHNIQUE: Three radiographs of the right foot were obtained dated May 06, 2022. FINDINGS: Focal lucencies and fragmentation are noted associated with the tuft of the 1st digit distal phalanx. Soft tissue gas is suggested between the 1st and 2nd toe bases. No additional fracture or dislocation. Small posterior and plantar calcaneal enthesophytes. The Lisfranc joint is well aligned. Mild scattered degenerative changes. Soft tissue swelling involving the mid and forefoot. Background vascular calcifications. IMPRESSION: 1. Fragmentation and lucencies associated with the tuft of the 1st digit distal phalanx. This may relate to osteomyelitis versus age-indeterminate fracture. Recommend clinical correlation. 2. Mild scattered degenerative changes. 3. Soft tissue swelling involving the mid and forefoot with mild soft tissue gas suggested between the 1st and 2nd toes. This may relate to underlying infection or soft tissue wound. Recommend direct visualization. Dictated by: Dictated on workstation # [id number] Dict: 05/06/221654 Trans: 05/06/221702 [facility] [id number] Interpreted by: PARVIZ COLLIER MD Electronically signed by: PARVIZ COLLIER MD 05/06/221702 Diagonstic Imaging: Xray Plain Films/CT/US/NM/MRI: chest Comments NAME: JAQUAN MONTILLA [facility] REC#: [id number] PT STATUS: REG ER : 1965 PHYSICIAN: VIVIANA MARIA MD ADMIT DATE: 05/06/22/ER Draft Date of Exam:05/06/22 CHEST 1 VIEW, AP/PA ONLY INDICATION: Chills. COMPARISON: None. FINDINGS: A single frontal view of the chest demonstrates normal heart size and pulmonary vascularity. The lungs are well aerated and clear. No large pleural effusion or pneumothorax is seen. The visualized osseous structures show no acute abnormalities. IMPRESSION: No acute cardiopulmonary process. Dictated on workstation # [id number] Dict: 05/06/224 Trans: 05/06/221654 [id number] Interpreted by: EUNICE HEALY MD Departure Communication (Admissions) Time/Spoke to Admitting Phy: 18:15 Dr. Bhandari Time/Spoke to Consulting Phy: 16:50 Dr. Wolfe Impression Primary Impression: Sepsis Qualified Codes: A41.9 - Sepsis, unspecified organism Additional Impressions: Cellulitis of right lower extremity Diabetic foot ulcer Qualified Codes: E11.621 - Type 2 diabetes mellitus with foot ulcer; L97.409 - Non-pressure chronic ulcer of unspecified heel and midfoot with unspecified severity Disposition: ADMITTED INPATIENT Condition: Improved Admissions Decision to Admit Reason: Admit from ER (General) Decision to Admit/Date: May 06, 2022 Time/Decision to Admit Time: 16:50 Departure-Patient Inst. Referrals: [facility] (PCP/Family) Primary Care Physician Copy Copies To 1: [facility] VIVIANA MARIA MD May 06, 2022 18:17
[2022-05-06] MEDS ORDERED: VANCOMYCIN INJECTION 1,000 MG in NS (IVPB) 250 ML IV ONE (18:30)
[2022-05-06] MEDS ORDERED: oxyCODONE/APAP 5/325MG (PERCOCET 5) TABLET PO ONE (19:00)
[2022-05-06] MEDS ORDERED: VANCOMYCIN INJECTION 750 MG in NS (IVPB) 250 ML IV ONE (19:30)
[2022-05-06] MEDS ORDERED: BISACODYL 10 MG SUPP (DULCOLAX) PR PRN (19:45)
[2022-05-06] MEDS ORDERED: ACETAMINOPHEN 325 MG TABLET PO PRN (19:45)
[2022-05-06] MEDS ORDERED: ONDANSETRON 4 MG (ZOFRAN) ORAL DISSOLVE TAB PO PRN (19:45)
[2022-05-06] MEDS ORDERED: LACTULOSE SYRUP 10GM/15ML (ENULOSE) 30ML UDC PO PRN (19:45)
[2022-05-06] MEDS ORDERED: morphine INJ 4 MG/ML 1 ML (VIAL/SYRINGE) IV PRN (19:45)
[2022-05-06] MEDS ORDERED: MILK OF MAGNESIA 400 MG/5 ML 30 ML UDC PO PRN (19:45)
[2022-05-06] MEDS ORDERED: diphenhydrAMINE 25 MG TAB (BENADRYL) PO PRN (19:45)
[2022-05-06] MEDS ORDERED: CALCIUM CARBONATE 500 MG (TUMS) TAB.CHEW PO PRN (19:45)
[2022-05-06] MEDS ORDERED: ONDANSETRON 4 MG/2 ML (SDV) Z0FRAN IV PRN (19:45)
[2022-05-06] MEDS ORDERED: MELATONIN 3 MG TABLET PO PRN (19:45)
[2022-05-06] MEDS ORDERED: diphenhydrAMINE 50 MG/ML INJ (BENADRYL) IVP PRN (19:45)
[2022-05-06] MEDS ORDERED: ANTACID SUSP 30 ML UDC (MYLANTA) PO PRN (19:45)
[2022-05-06] MEDS ORDERED: polyethylene glycoL POWDER 17 GM (MIRALAX) PACK PO PRN (19:45)
[2022-05-06] MEDS ORDERED: VANCOMYCIN INJECTION 0.1 MG in NS (IVPB) 250 ML IV SCH (19:45)
[2022-05-06 20:00] VITALS: BP 117/60
[2022-05-06 20:52] VITALS: BP 148/53
[2022-05-06] MEDS: inSUlin ASPART (NovoLOG) 1 UNIT/0.01 ML (CHARGE PER UNIT) SC SCH (21:00)
[2022-05-06] MEDS ORDERED: RT-ALBUTEROL SULF 2.5 MG/3 ML PRE-MIX VIAL INH PRN (21:00)
[2022-05-06] MEDS: SENNOSIDES 8.6 MG (SENOKOT) TAB PO SCH (21:00)
[2022-05-06] MEDS: NS IV 1000 ML 1,000 ML IV SCH (21:00)
[2022-05-06] MEDS: DOCUSATE SODIUM 100 MG (COLACE) CAP PO SCH (21:00)
[2022-05-06] MEDS ORDERED: NS IV 1000 ML 1,000 ML ONE (21:05)
[2022-05-06] MEDS ORDERED: ENOXAPARIN 40 MG/0.4 ML (LOVENOX) SYR SC SCH (21:50)
[2022-05-06 23:40] VITALS: BP 118/66
[2022-05-07 03:18] VITALS: BP 154/81
[2022-05-07] MEDS: NS IV 1000 ML 1,000 ML IV SCH ×2 (03:45→09:45)
[2022-05-07] MEDS ORDERED: PIPERACILLIN SODIUM/TAZOBACTAM 4.5 GM in NS (IVPB) 100 ML IV SCH (04:30)
[2022-05-07] MEDS ORDERED: VANCOMYCIN 1 GM/NS 250 ML IVPB IV SCH ×2 (04:30)
[2022-05-07] MEDS: inSUlin ASPART (NovoLOG) 1 UNIT/0.01 ML (CHARGE PER UNIT) SC SCH (05:32)
--- NOTE | 2022-05-07 05:58 | History & Physical-Hospitalist ---
History of Present Illness Date Seen 05/07/22 Time Seen by a Provider: 11:00 Attending Physician [place] PCP Admitting Physician: Charline Bhandari DO Attending Physician: Charline Bhandari DO Referring Physician Date of Admission May 06, 2022 at 18:31 Home Medications & Allergies Home Medications Reviewed patient Home Medication Reconciliation performed by pharmacy medication reconciliations career guidance technician and/or nursing. Patients Allergies have been reviewed. Allergies Allergies Uncoded Allergies THC ( Allergy, Unknown, 11/20/16) Past Wqdytqq-Uhxjcx-Ulyijz Hx Patient Social History Tobacco Use?: Yes Tobacco type used: Cigarettes Smoking Status: Current Everyday Smoker Use of E-Cig and/or Vaping dev: No Substance use?: Yes Substance type: Amphetamines, Methamphetamine, Hallucinogens, Nicotine Substance frequency: Couple times a week Alcohol Use?: Yes Alcohol type: Beer Alcohol Frequency: Couple times a week Pt feels they are or have been: No Immunizations Up To Date Tetanus Booster (TDap): Unknown Seasonal Allergies Seasonal Allergies: No Current Status Advance Directives: No Communicates: Verbally Primary Language: Palauan Preferred Spoken Language: Palauan Is interpretation needed?: No Implanted or Applied Medical D: None Past Medical History Surgeries: Abdominal (Hernia), Appendectomy, Orthopedic High Cholesterol, Hypertension Chronic Back Pain Diabetes, Non-Insulin dep Family Medical History SOCIAL HISTORY: -OCCASIONAL ETOH USE -EXTENSIVE DRUG ABUSE, INCLUDING IV COCAINE AND METH, ALSO THC, MUSHROOMS, "EVERYTHING" -SMOKES 1 PPD Review of Systems ROS-Unable to Obtain: left ama Constitutional: no symptoms reported Physical Exam Physical Exam Vital Signs Vital Signs - First Documented 05/06/22 05/06/22 05/06/22 05/06/22 16:27 20:00 20:07 20:52 Temp 37.6 Pulse 91 Resp 16 B/P (MAP) 148/53 (84) Pulse Ox 94 O2 Delivery Room Air FiO2 21 Capillary Refill : Height, Weight, BMI Height: 5'10.00" Weight: 230lbs. oz. 104.872289ff; 28.24 BMI Method:Stated General Appearance: Other (left ama) Results Results/Procedures Labs Laboratory Tests 05/06/22 16:47 05/07/22 05:12 Patient resulted labs reviewed. Assessment/Plan Admission Diagnosis left ama Admission Status: Observation Reason for Inpatient Admission: ama Clinical Quality Measures DVT/VTE Risk/Contraindication: Contraindications-Mechi: Other *list below* Other: cellulitis CHARLINE BHANDARI DO May 07, 2022 05:58
[2022-05-07 06:07] LABS: BASOPHILS # (AUTO) 0.1 10^3/uL (0.0-0.1); BASOPHILS % (AUTO) 0 % (0-10); EOSINOPHILS # (AUTO) 0.2 10^3/uL (0.0-0.3); EOSINOPHILS % (AUTO) 1 % (0-10); HEMATOCRIT 30 % (40-54); HEMOGLOBIN 9.7 g/dL (13.3-17.7); LYMPHOCYTES # (AUTO) 1.6 10^3/uL (1.0-4.0); LYMPHOCYTES % (AUTO) 7 % (12-44); MEAN CORPUSCULAR HEMOGLOBIN 28 pg (25-34); MEAN CORPUSCULAR HGB CONC 33 g/dL (32-36); MEAN CORPUSCULAR VOLUME 86 fL (80-99); MEAN PLATELET VOLUME 10.1 fL (9.0-12.2); MONOCYTES # (AUTO) 1.3 10^3/uL (0.0-1.0); MONOCYTES % (AUTO) 6 % (0-12); NEUTROPHILS # (AUTO) 19.8 10^3/uL (1.8-7.8); NEUTROPHILS % (AUTO) 85 % (42-75); PLATELET COUNT 383 10^3/uL (130-400); WHITE BLOOD COUNT 23.3 10^3/uL (4.3-11.0)
[2022-05-07 06:19] LABS: ALBUMIN 2.7 GM/DL (3.2-4.5); POTASSIUM 3.9 MMOL/L (3.6-5.0)
[2022-05-07 06:21] LABS: CALCIUM 8.4 MG/DL (8.5-10.1)
[2022-05-07 06:22] LABS: TOTAL PROTEIN 6.8 GM/DL (6.4-8.2)
[2022-05-07 06:24] LABS: BILIRUBIN,TOTAL 0.2 MG/DL (0.1-1.0)
[2022-05-07 06:25] LABS: CREATININE SERUM 0.81 MG/DL (0.60-1.30)
[2022-05-07] MEDS: DOCUSATE SODIUM 100 MG (COLACE) CAP PO SCH (07:46)
[2022-05-07] MEDS: SENNOSIDES 8.6 MG (SENOKOT) TAB PO SCH (07:47)
[2022-05-07] MEDS ORDERED: VANCOMYCIN INJECTION 1,000 MG in NS (IVPB) 250 ML IV SCH (08:30)
[2022-05-07 08:33] VITALS: BP 139/62
[2022-05-07 10:18] VITALS: BP 139/62
--- NOTE | 2022-05-07 10:25 | Discharge Summary ---
Discharge Summary Hospital Course Was the Problem List Reviewed?: Yes Problems/Dx: (1) Cellulitis of right lower extremity Status: Acute (2) Sepsis Status: Acute Qualifiers: Qualified Codes: A41.9 - Sepsis, unspecified organism Hospital Course Date of Admission: May 06, 2022 at 18:31 Admission Diagnosis : Family Physician/Provider: [place] Date of Discharge: 05/07/22 Discharge Diagnosis: [ ] Hospital Course: [ ] Labs and Pending Lab Test: Laboratory Tests 05/06/22 16:47: White Blood Count 24.0H, Red Blood Count 3.48L, Hemoglobin 9.9L, Hematocrit 30L, Mean Corpuscular Volume 86, Mean Corpuscular Hemoglobin 28, Mean Corpuscular Hemoglobin Concent 33, Red Cell Distribution Width 13.0, Platelet Count 389, Mean Platelet Volume 9.8, Immature Granulocyte % (Auto) 1, Neutrophils (%) (Auto) 86H, Lymphocytes (%) (Auto) 7L, Monocytes (%) (Auto) 5, Eosinophils (%) (Auto) 1, Basophils (%) (Auto) 0, Neutrophils # (Auto) 20.7H, Lymphocytes # (Auto) 1.7, Monocytes # (Auto) 1.2H, Eosinophils # (Auto) 0.2, Basophils # (Auto) 0.1, Immature Granulocyte # (Auto) 0.2H, Neutrophils % (Manual) 91, Lymphocytes % (Manual) 5, Monocytes % (Manual) 4, Blood Morphology Comment NORMAL, Prothrombin Time 14.3, INR Comment 1.1, Activated Partial Thromboplast Time 38H, Sodium Level 131L, Potassium Level 3.8, Chloride Level 97L, Carbon Dioxide Level 24, Anion Gap 10, Blood Urea Nitrogen 16, Creatinine 0.84, Estimat Glomerular Filtration Rate 102, BUN/Creatinine Ratio 19, Glucose Level 188H, Mean Blood Glucose [Pending], Hemoglobin A1c [Pending], Lactic Acid Level 1.18, Calcium Level 9.1, Corrected Calcium 9.9, Total Bilirubin 0.3, Aspartate Amino Transf (AST/SGOT) 13, Alanine Aminotransferase (ALT/SGPT) 12, Alkaline Phosphatase 121, C-Reactive Protein High Sensitivity 15.24H, Total Protein 7.5, Albumin 3.0L, Procalcitonin 0.67H 05/06/22 20:48: Glucometer 128H 05/07/22 05:12: White Blood Count 23.3H, Red Blood Count 3.42L, Hemoglobin 9.7L, Hematocrit 30L, Mean Corpuscular Volume 86, Mean Corpuscular Hemoglobin 28, Mean Corpuscular Hemoglobin Concent 33, Red Cell Distribution Width 13.2, Platelet Count 383, Mean Platelet Volume 10.1, Immature Granulocyte % (Auto) 1, Neutrophils (%) (Auto) 85H, Lymphocytes (%) (Auto) 7L, Monocytes (%) (Auto) 6, Eosinophils (%) (Auto) 1, Basophils (%) (Auto) 0, Neutrophils # (Auto) 19.8H, Lymphocytes # (Auto) 1.6, Monocytes # (Auto) 1.3H, Eosinophils # (Auto) 0.2, Basophils # (Auto) 0.1, Immature Granulocyte # (Auto) 0.3H, Sodium Level 133L, Potassium Level 3.9, Chloride Level 101, Carbon Dioxide Level 21, Anion Gap 11, Blood Urea Nitrogen 12, Creatinine 0.81, Estimat Glomerular Filtration Rate 103, BUN/Creatinine Ratio 15, Glucose Level 134H, Calcium Level 8.4L, Corrected Calcium 9.4, Total Bilirubin 0.2, Aspartate Amino Transf (AST/SGOT) 12, Alanine Aminotransferase (ALT/SGPT) 9, Alkaline Phosphatase 124, Total Protein 6.8, Albumin 2.7L 05/07/22 05:44: Glucometer 126H Home Meds Active Naproxen 500 Mg Tablet.dr 500 Mg PO BID Keflex (Cephalexin) 500 Mg Capsule 500 Mg PO TID Bactrim Ds Tablet (Sulfamethoxazole/Trimethoprim) 1 Each Tablet 1 Each PO BID Reported Lyrica (Pregabalin) 75 Mg Capsule Atorvastatin Calcium 40 Mg Tablet Victoza 3-Faheem (Liraglutide) 0.6 Mg/0.1 Ml Pen.injctr Tramadol HCl 50 Mg Tablet Assessment/Pt Instructions left ama Discharge Planning: <30 minutes discharge planning Discharge Physical Examination Vital Signs Vital Signs Date Time Temp Pulse Resp B/P (MAP) Pulse Ox O2 Delivery O2 Flow Rate FiO2 05/07/22 10:18 38.2 89 18 139/62 95 Room Air 05/06/22 20:52 21 Allergies: Uncoded Allergies: THC (Allergy, Unknown, 11/20/16) Discharge Summary Date of Admission May 06, 2022 at 18:31 Date of Discharge Clinical Quality Measures DVT/VTE Risk/Contraindication: Contraindications-Mechi: Other *list below* Other: cellulitis AMY ROBISON DO May 07, 2022 10:25
--- NOTE | 2022-05-07 12:32 | Consultation - Surgery ---
History of Present Illness History of Present Illness Patient Consulted On(nicole/time) 05/07/22 12:24 Time Seen by Provider: 09:31 History of Present Illness Surgery asked to consult regarding right foot abscess/cellulitis. HPI per ED: Mr. Mckeon is a 56-year-old gentleman who presents to the emergency room with complaints of pain to the right foot and ankle. He presumes this to be related to an injury that occurred over the weekend in which she stepped on a metal object. He has a break in the skin on the ball of his foot which he states is actually an old diabetic ulcer wound he has had for many months. He reports that pus drained out of this ulcer over the weekend. He has severe edema of the foot, ankle, and lower leg with hot erythema extending up to the proximal calf, almost to the knee. This erythema is fairly well demarcated and has the appearance of cellulitis. There are blisters on the second toe with dusky discoloration suspicious for skin necrosis. Patient has type 2 diabetes and reports that he has not been taking any medication for his diabetes. He is afebrile at present. He reports his pain is 4 out of 10. When I saw pt this am he ad eaten and was complaining of pain. However, he did not want to talk to me "I am not having any surgery". He stated he wanted to go to [place], "they will take better care of me there". Allergies and Home Medications Allergies Uncoded Allergies: THC (Allergy, Unknown, 11/20/16) Patient Home Medication List Home Medication List Reviewed: Yes Atorvastatin Calcium (Atorvastatin Calcium) 40 Mg Tablet, (Reported) Entered as Reported by: COSMO FERRARO on 11/20/16843 Cephalexin (Keflex) 500 Mg Capsule, 500 MG PO TID Prescribed by: TROY FORREST on 11/21/182032 Liraglutide (Victoza 3-Faheem) 0.6 Mg/0.1 Ml Pen.injctr, (Reported) Entered as Reported by: COSMO FERRARO on 11/20/16843 Naproxen (Naproxen) 500 Mg Tablet.dr, 500 MG PO BID Prescribed by: SARA SMALLWOOD on 08/14/20 0039 Pregabalin (Lyrica) 75 Mg Capsule, (Reported) Entered as Reported by: COSMO FERRARO on 11/20/16 0844 Sulfamethoxazole/Trimethoprim (Bactrim Ds Tablet) 1 Each Tablet, 1 EACH PO BID Prescribed by: TROY FORREST on 11/21/182032 Tramadol HCl (Tramadol HCl) 50 Mg Tablet, (Reported) Entered as Reported by: COSMO Green FERRARO on 11/20/16 0844 Past Opcmkvw-Ahyayh-Qgpuoc Hx Patient Social History Smoking Status: Current Everyday Smoker Type Used: Cigarettes Recent Hopitalizations: No Alcohol Use?: Yes Substance type: Amphetamines, Methamphetamine, Hallucinogens, Nicotine Have you traveled recently?: No Immunizations Up To Date Tetanus Booster (TDap): Less than 5yrs Seasonal Allergies Seasonal Allergies: No Surgeries History of Surgeries: Yes Surgeries: Abdominal (Hernia), Appendectomy, Orthopedic Respiratory History of Respiratory Disorde: No Cardiovascular History of Cardiac Disorders: Yes (REFUSES TO TAKE MEDICATIONS) Cardiac Disorders: High Cholesterol, Hypertension Neurological History of Neurological Disord: No Genitourinary History of Genitourinary Disor: No Gastrointestinal History of Gastrointestinal Di: No Musculoskeletal History of Musculoskeletal Dis: Yes Musculoskeletal Disorders: Chronic Back Pain Endocrine History of Endocrine Disorders: Yes (NON COMPLAINT) Endocrine Disorders: Diabetes, Non-Insulin dep Cancer History of Cancer: No Psychosocial History of Psychiatric Problem: No Integumentary History of Skin or Integumenta: Yes (Chronic ulcers on the anterior left ankle and the balls of each foot) Family Medical History Significant Family History: No Pertinent Family Hx Review of Systems-General Constitutional: fever, malaise EENTM: No blurred vision, No double vision, No mouth pain, No mouth swelling Respiratory: No dyspnea on exertion, No hemoptysis, No short of breath Cardiovascular: No chest pain, No edema Gastrointestinal: No abdominal pain, No nausea, No vomiting Genitourinary: No dysuria, No frequency, No hematuria Musculoskeletal: joint pain, joint swelling Skin: lesions, rash Psychiatric/Neurological: Denies Anxiety, Denies Depressed, Denies Seizure, Denies Tremors Physical Exam-General Problems Physical Exam Vital Signs Vital Signs - First Documented 05/06/22 05/06/22 05/06/22 05/06/22 16:27 20:00 20:07 20:52 Temp 37.6 Pulse 91 Resp 16 B/P (MAP) 148/53 (84) Pulse Ox 94 O2 Delivery Room Air FiO2 21 Capillary Refill : General Appearance: moderate distress Eyes: Bilateral Eye PERRL, Bilateral Eye EOMI HEENT: No pharynx normal, No scleral icterus (R), No scleral icterus (L) Neck: supple Respiratory: lungs clear, normal breath sounds, no respiratory distress, no acc essory muscle use Cardiovascular: regular rate, rhythm, no murmur Gastrointestinal: non tender, soft, no organomegaly Extremities: calf tenderness, inflammation, pedal edema, swelling, other (purplish/black blister on second toe and another large one on plantar/medial aspect of foot, erythema and edema on foot and leg. Looks worse than picture I saw from ER yesterday. ) Data Review Labs Laboratory Tests 05/06/22 16:47: White Blood Count 24.0H, Red Blood Count 3.48L, Hemoglobin 9.9L, Hematocrit 30L, Mean Corpuscular Volume 86, Mean Corpuscular Hemoglobin 28, Mean Corpuscular Hemoglobin Concent 33, Red Cell Distribution Width 13.0, Platelet Count 389, Mean Platelet Volume 9.8, Immature Granulocyte % (Auto) 1, Neutrophils (%) (Auto) 86H, Lymphocytes (%) (Auto) 7L, Monocytes (%) (Auto) 5, Eosinophils (%) (Auto) 1, Basophils (%) (Auto) 0, Neutrophils # (Auto) 20.7H, Lymphocytes # (Auto) 1.7, Monocytes # (Auto) 1.2H, Eosinophils # (Auto) 0.2, Basophils # (Auto) 0.1, Immature Granulocyte # (Auto) 0.2H, Neutrophils % (Manual) 91, Lymphocytes % (Manual) 5, Monocytes % (Manual) 4, Blood Morphology Comment NORMAL, Prothrombin Time 14.3, INR Comment 1.1, Activated Partial Thromboplast Time 38H, Sodium Level 131L, Potassium Level 3.8, Chloride Level 97L, Carbon Dioxide Level 24, Anion Gap 10, Blood Urea Nitrogen 16, Creatinine 0.84, Estimat Glomerular Filtration Rate 102, BUN/Creatinine Ratio 19, Glucose Level 188H, L actic Acid Level 1.18, Calcium Level 9.1, Corrected Calcium 9.9, Total Bilirubin 0.3, Aspartate Amino Transf (AST/SGOT) 13, Alanine Aminotransferase (ALT/SGPT) 12, Alkaline Phosphatase 121, C-Reactive Protein High Sensitivity 15.24H, Total Protein 7.5, Albumin 3.0L, Procalcitonin 0.67H 05/06/22 20:48: Glucometer 128H 05/07/22 05:12: White Blood Count 23.3H, Red Blood Count 3.42L, Hemoglobin 9.7L, Hematocrit 30L, Mean Corpuscular Volume 86, Mean Corpuscular Hemoglobin 28, Mean Corpuscular Hemoglobin Concent 33, Red Cell Distribution Width 13.2, Platelet Count 383, Mean Platelet Volume 10.1, Immature Granulocyte % (Auto) 1, Neutrophils (%) (Auto) 85H, Lymphocytes (%) (Auto) 7L, Monocytes (%) (Auto) 6, Eosinophils (%) (Auto) 1, Basophils (%) (Auto) 0, Neutrophils # (Auto) 19.8H, Lymphocytes # (Auto) 1.6, Monocytes # (Auto) 1.3H, Eosinophils # (Auto) 0.2, Basophils # (Auto) 0.1, Immature Granulocyte # (Auto) 0.3H, Sodium Level 133L, Potassium Level 3.9, Chloride Level 101, Carbon Dioxide Level 21, Anion Gap 11, Blood Urea Nitrogen 12, Creatinine 0.81, Estimat Glomerular Filtration Rate 103, BUN/Creatinine Ratio 15, Glucose Level 134H, Calcium Level 8.4L, Corrected Calcium 9.4, Total Bilirubin 0.2, Aspartate Amino Transf (AST/SGOT) 12, Alanine Aminotransferase (ALT/SGPT) 9, Alkaline Phosphatase 124, Total Protein 6.8, Albumin 2.7L 05/07/22 05:44: Glucometer 126H Radiology Date of Exam:05/06/22 FOOT, RIGHT, 3 VIEW INDICATION: Foot pain. COMPARISON: None available. TECHNIQUE: Three radiographs of the right foot were obtained dated May 06, 2022. FINDINGS: Focal lucencies and fragmentation are noted associated with the tuft of the 1st digit distal phalanx. Soft tissue gas is suggested between the 1st and 2nd toe bases. No additional fracture or dislocation. Small posterior and plantar calcaneal enthesophytes. The Lisfranc joint is well aligned. Mild scattered degenerative changes. Soft tissue swelling involving the mid and forefoot. Background vascular calcifications. IMPRESSION: 1. Fragmentation and lucencies associated with the tuft of the 1st digit distal phalanx. This may relate to osteomyelitis versus age-indeterminate fracture. Recommend clinical correlation. 2. Mild scattered degenerative changes. 3. Soft tissue swelling involving the mid and forefoot with mild soft tissue gas suggested between the 1st and 2nd toes. This may relate to underlying infection or soft tissue wound. Recommend direct visualization. Dictated by: Dictated on workstation # [id number] Dict: 05/06/22 1655 Trans: 05/06/22 170 E [id number] Interpreted by: PARVIZ COLLIER MD Electronically signed by: PARVIZ COLLIER MD 05/06/22 8885 Assessment/Plan Assessment/Plan Assessment/Plan Right foot Cellulitis/Abscess with possible Osteomyelitis I told pt that I thought he was going to need surgery; minimum being opening these "blisters" to drain any purulence. ABX will not work if there is purulent fluid. He stated he wasn't doing any surgery and he wasn't staying another day. I told him he could lose the foot, part of leg and even if he got septic. He said he didn't care and was leaving. He then left AMA. Clinical Quality Measures DVT/VTE Risk/Contraindication: Contraindications-Mechi: Other *list below* Other: cellulitis ELOY CALDERON DO May 07, 2022 12:32
[2022-05-07] MEDS ORDERED: TROUGH ORDER-PHARMACY XX ONE (19:00)
== END 2022-05-07 10:30 | disposition left against medical advice (07) | DRG 872 ==
LOC: EDUNIT# 16:14 → ER 16:16 → 4TH 18:31
PROVIDERS: ADMIT Internal Medicine; ATTEND Internal Medicine
DX: A41.9 Sepsis, unspecified organism (principal); L03.115 Cellulitis of right lower limb; L97.409 Non-pressure chronic ulcer of unspecified heel and midfoot with unspecified severity; L02.611 Cutaneous abscess of right foot; M86.8X7 Other osteomyelitis, ankle and foot; E11.621 Type 2 diabetes mellitus with foot ulcer; E78.00 Pure hypercholesterolemia, unspecified; I10 Essential (primary) hypertension; G89.29 Other chronic pain; M54.9 Dorsalgia, unspecified; F17.210 Nicotine dependence, cigarettes, uncomplicated; F15.90 Other stimulant use, unspecified, uncomplicated; E11.69 Type 2 diabetes mellitus with other specified complication
CPT/HCPCS: 36415; 71045; 73610; 73630; 80053; 82947; 83036; 83605; 84145; 85007; 85025; 85027; 85610; 85730; 86141; 87040

== ENCOUNTER 2022-10-25 15:54 | Emergency (ER) | payer SELFPAY ==
[~2022-10-25] VITALS: Ht 175.2 cm; Wt 88.9 kg
--- NOTE | 2022-10-25 16:25 | ED Lower Extremity ---
General Chief Complaint: Lower Extremity Stated Complaint: FALL RIGHT HIP/FOOT INJURY Nursing Triage Note: PT ARRIVED POV WITH COMPLAINTS OF RIGHT HIP AND FOOT PAIN. PT STATED THAT HE LOST HIS BALANCE YESTERDAY AND FELL. Source: patient Exam Limitations: no limitations (NASREEN EGAN APRN) History of Present Illness Date Seen by Provider: Oct 25, 2022 Time Seen by Provider: 16:00 Initial Comments Patient is a 57-year-old male who presents to the emergency department with right hip and foot pain that began yesterday when he lost his balance and fell o n his right side. Patient states he has been nail in his right femur. States he was told that the nail may have "moved a little". Patient denies any other pain or injury. Patient was ambulatory to the room. He has not take anything today for the symptoms. (NASREEN EGAN APRN) Allergies and Home Medications Allergies Uncoded Allergies: THC (Allergy, Unknown, 11/20/16) Patient Home Medication List Home Medication List Reviewed: Yes (NASREEN EGAN APRN) Atorvastatin Calcium (Atorvastatin Calcium) 40 Mg Tablet, (Reported) Entered as Reported by: COSMO FERRARO on 11/20/16 08 Cephalexin (Keflex) 500 Mg Capsule, 500 MG PO TID Prescribed by: TROY FORREST on 11/21/182032 Liraglutide (Victoza 3-Faheem) 0.6 Mg/0.1 Ml Pen.injctr, (Reported) Entered as Reported by: COSMO FERRARO on 11/20/16 0844 Naproxen (Naproxen) 500 Mg Tablet.dr, 500 MG PO BID Prescribed by: SARA SMALLWOOD on 08/14/20 0039 Pregabalin (Lyrica) 75 Mg Capsule, (Reported) Entered as Reported by: COSMO FERRARO on 11/20/16 0844 Sulfamethoxazole/Trimethoprim (Bactrim Ds Tablet) 1 Each Tablet, 1 EACH PO BID Prescribed by: TROY FORREST on 11/21/182032 Tramadol HCl (Tramadol HCl) 50 Mg Tablet, (Reported) Entered as Reported by: COSMO FERRARO on 11/20/16 0844 Review of Systems Constitutional: no symptoms reported EENTM: no symptoms reported Respiratory: no symptoms reported Cardiovascular: no symptoms reported Gastrointestinal: no symptoms reported Genitourinary: no symptoms reported Musculoskeletal: see HPI, joint pain Skin: no symptoms reported Psychiatric/Neurological: No Symptoms Reported (NASREEN EGAN APRN) Past Jwlmzhg-Uaqiqu-Hoqdxd Hx Patient Social History Tobacco Use?: No Substance use?: No Alcohol Use?: No (NASREEN EGAN APRN) Immunizations Up To Date Tetanus Booster (TDap): Less than 5yrs (NASREEN EGAN APRN) Seasonal Allergies Seasonal Allergies: No (NASREEN EGAN APRN) Past Medical History Surgery/Hospitalization HX: appy, ortho sx, hernia repair Surgeries: Yes Abdominal, Appendectomy, Orthopedic Respiratory: No Cardiac: Yes (REFUSES TO TAKE MEDICATIONS) High Cholesterol, Hypertension Neurological: No Genitourinary: No Gastrointestinal: No Musculoskeletal: Yes Chronic Back Pain Endocrine: Yes (NON COMPLAINT) Diabetes, Non-Insulin dep Cancer: No Psychosocial: No Integumentary: Yes (Chronic ulcers on the anterior left ankle and the balls of each foot) (NASREEN EGAN APRN) Family Medical History No Pertinent Family Hx SOCIAL HISTORY: -OCCASIONAL ETOH USE -EXTENSIVE DRUG ABUSE, INCLUDING IV COCAINE AND METH, ALSO THC, MUSHROOMS, "EVERYTHING" -SMOKES 1 PPD (NASREEN EGAN APRN) Physical Exam Vital Signs Vital Signs - First Documented 10/25/22 10/25/22 15:58 17:00 Pulse 85 Resp 18 B/P (MAP) 174/90 (118) Pulse Ox 99 O2 Delivery Room Air (VIVIANA MARIA MD) Vital Signs Capillary Refill : (NASREEN EGAN APRN) Height, Weight, BMI Height: 5'10.00" Weight: 230lbs. oz. 104.717614dn; 28.00 BMI Method:Stated General Appearance: WD/WN, no apparent distress HEENT: PERRL/EOMI, normal ENT inspection, TMs normal, pharynx normal Neck: non-tender, full range of motion, supple, normal inspection Cardiovascular: regular rate, rhythm Respiratory: chest non-tender, lungs clear, normal breath sounds, no respiratory distress, no accessory muscle use Gastrointestinal: normal bowel sounds, non tender, soft Hips: right hip pain, right hip soft tissue tenderness Feet: right foot normal inspection, right foot pain, right foot soft tissue tenderness Neurologic/Psychiatric: no motor/sensory deficits, alert, normal mood/affect, oriented x 3 Skin: normal color, warm/dry (NASREEN EGAN APRN) Progress/Results/Core Measures Results/Orders Vital Signs/I&O 10/25/22 10/25/22 15:58 17:00 Pulse 85 85 Resp 18 B/P (MAP) 174/90 (118) 174/90 Pulse Ox 99 99 O2 Delivery Room Air Room Air (VIVIANA MARIA MD) Blood Pressure Mean: 118 Progress Progress Note : Progress Note Patient is nontoxic and well-hydrated on exam. No obvious deformity noted to the right hip or right foot. Patient has intact neurovascular function in the distal right lower extremity. X-rays of the right hip and right foot are acutely negative. Patient was ambulatory on the affected extremity. Will discharge home with recommendations for supportive care and close follow-up with PCP. Return precautions for symptomology discussed. Patient verbalized understanding. (NASREEN EGAN APRN) Departure Impression Primary Impression: Right hip pain Additional Impression: Right foot pain Disposition: 01 HOME, SELF-CARE Condition: Stable Departure-Patient Inst. Decision time for Depature: 16:50 (NASREEN EGAN APRN) Referrals: [facility] [place] ([place]/Family) Primary Care Physician Patient Instructions: Hip Pain ED, Foot Sprain ED ATTENDING PHYSICIAN NOTE: I was physically present as attending physician in the emergency department during the care of this patient, but I was not directly involved in the decision making or delivery of care for this patient. (VIVIANA MARIA MD) NASREEN EGAN APRN Oct 25, 2022 16:25 VIVIANA MARIA MD Oct 27, 2022 05:06
--- NOTE | 2022-10-25 16:36 | Diagnostic Imaging Report ---
Indication: Fall with right hip pain. Comparison: None. Discussion: AP view of the pelvis and two views of the right hip were obtained. Intramedullary mio is incompletely viewed within the right femur. No hardware complication within the visualized component. Hip joints are maintained. No fracture or dislocation. Soft tissues are unremarkable. Impression: No acute abnormality within the pelvis or right hip. Dictated by: Dictated on workstation # [id number]
--- NOTE | 2022-10-25 16:39 | Diagnostic Imaging Report ---
INDICATION: Pain, fall. COMPARISON: 05/06/2022. TECHNIQUE: Three radiographs of the right foot dated October 25, 2022. FINDINGS: No acute fracture or dislocation. No destructive osseous process. Mild scattered degenerative changes. Lisfranc joint is well aligned. No suspicious radiopaque foreign body. Small posterior calcaneal enthesophytes. Significant background vascular calcifications. IMPRESSION: No acute osseous abnormality with mild degenerative changes and significant background vascular calcifications. Dictated by: Dictated on workstation # [id number]
[2022-10-25 17:00] VITALS: BP 174/90
== END 2022-10-25 17:00 | disposition home or self-care (01) ==
LOC: EDUNIT# 15:54 → ER 15:57
DX: M25.551 Pain in right hip (principal); M79.671 Pain in right foot; F17.210 Nicotine dependence, cigarettes, uncomplicated; Z28.310 Unvaccinated for COVID-19; W01.0XXA Fall on same level from slipping, tripping and stumbling without subsequent striking against object, initial encounter
CPT/HCPCS: 73630

== ENCOUNTER 2023-05-08 15:59 | Emergency (ER) | payer MEDICARE, OTHER ==
[~2023-05-08] VITALS: Ht 175 cm; Wt 90.0 kg
[2023-05-08] MEDS ORDERED: NS IV 1000 ML 1,000 ML IV STA ×2 (16:12→18:08)
[2023-05-08] MEDS ORDERED: LORazepam INJ 2 MG/ML (ATIVAN) VIAL IVP ONE (16:15)
--- NOTE | 2023-05-08 16:17 | ED General ---
General Chief Complaint: General Problems/Pain Stated Complaint: SHAKING/LOW BLOOD PRESSURE Source of Information: Patient Exam Limitations: No Limitations History of Present Illness Date Seen by Provider: May 08, 2023 Time Seen by Provider: 16:14 Initial Comments Patient is a 57-year-old male who presents ED with not feeling well, shaking and low blood pressure. Patient woke up around 2:30 PM. Patient states he woke up not feeling good. Started having diffuse shaking. Patient states he is type II diabetic not on insulin. Had a blood pressure in the 90s systolic at home today. States he has been working a lot at home cleaning up his yard for the [employer]. Patient did not work this morning. He has been working the past few days. Denies of any vomiting, diarrhea, cough, shortness of breath, back pain, chest pain, night sweats, weight loss, lower extremity weakness or sensory changes, chest pain, abdominal pain, nausea, vomiting, diarrhea, headache. States he has been feeling lightheaded over the past few days. Denies of any unilateral muscle weakness or sensory changes. Patient states he has swelling to his left elbow 2 weeks ago after hitting his elbow. History of hitting his elbow resulting in olecranon bursitis. Also reports chronic sores. Denies any drug use or alcohol use. Reports a wound to his right foot for several months. History of osteomyelitis. Allergies and Home Medications Allergies Uncoded Allergies: THC (Allergy, Unknown, 11/20/16) Patient Home Medication List Home Medication List Reviewed: Yes Atorvastatin Calcium (Atorvastatin Calcium) 40 Mg Tablet, (Reported) Entered as Reported by: COSMO FERRARO on 11/20/16 0844 Cephalexin (Keflex) 500 Mg Capsule, 500 MG PO TID Prescribed by: TROY FORREST on 11/21/182032 Cephalexin (Cephalexin) 500 Mg Tablet, 500 MG PO QID Prescribed by: DARYN BISHOP on 05/08/23 183 Liraglutide (Victoza 3-Faheem) 0.6 Mg/0.1 Ml Pen.injctr, (Reported) Entered as Reported by: COSMO FERRARO on 11/20/16 0844 Naproxen (Naproxen) 500 Mg Tablet.dr, 500 MG PO BID Prescribed by: SARA SMALLWOOD on 08/14/20 0039 Pregabalin (Lyrica) 75 Mg Capsule, (Reported) Entered as Reported by: COSMO FERRARO on 11/20/16 08 Sulfamethoxazole/Trimethoprim (Bactrim Ds Tablet) 1 Each Tablet, 1 EACH PO BID Prescribed by: TROY FORREST on 11/21/182032 Sulfamethoxazole/Trimethoprim (Bactrim Ds Tablet) 800 Mg-160 Mg Tablet, 1 EACH PO BID Prescribed by: DARYN BISHOP on 05/08/231831 Tramadol HCl (Tramadol HCl) 50 Mg Tablet, (Reported) Entered as Reported by: COSMO FERRARO on 11/20/16843 Review of Systems Review of Systems Constitutional: No chills, No diaphoresis; dizziness; No fever; malaise, weakness EENTM: No ear pain, No blurred vision, No double vision Respiratory: No cough, No dyspnea on exertion Cardiovascular: No chest pain, No edema Gastrointestinal: No abdominal pain, No diarrhea, No nausea, No vomiting Genitourinary: No decreased output, No discharge, No dysuria, No frequency, No hematuria Musculoskeletal: back pain, joint pain, joint swelling; No muscle pain Skin: No change in color, No change in hair/nails All Other Systems Reviewed Negative Unless Noted: Yes Past Xdwlkhb-Dmltgv-Wpniyg Hx Immunizations Up To Date Tetanus Booster (TDap): Less than 5yrs Seasonal Allergies Seasonal Allergies: No Past Medical History Surgery/Hospitalization HX: appy, ortho sx, hernia repair Surgeries: Yes Abdominal, Appendectomy, Orthopedic Respiratory: No Cardiac: Yes (REFUSES TO TAKE MEDICATIONS) High Cholesterol, Hypertension Neurological: No Genitourinary: No Gastrointestinal: No Musculoskeletal: Yes Chronic Back Pain Endocrine: Yes (NON COMPLAINT) Diabetes, Non-Insulin dep Cancer: No Psychosocial: No Integumentary: Yes (Chronic ulcers on the anterior left ankle and the balls of each foot) Family Medical History No Pertinent Family Hx SOCIAL HISTORY: -OCCASIONAL ETOH USE -EXTENSIVE DRUG ABUSE, INCLUDING IV COCAINE AND METH, ALSO THC, MUSHROOMS, "EVERYTHING" -SMOKES 1 PPD Physical Exam Vital Signs Vital Signs - First Documented 05/08/23 16:04 Temp 37.4 Pulse 88 Resp 20 B/P (MAP) 182/91 (121) Pulse Ox 99 O2 Delivery Room Air Capillary Refill : Less Than 3 Seconds Height, Weight, BMI Height: 5'10.00" Weight: 230lbs. oz. 104.034077ip; 28.00 BMI Method:Stated General Appearance: No Apparent Distress, WD/WN Eyes: Bilateral Eye Normal Inspection, Bilateral Eye PERRL, Bilateral Eye EOMI HEENT: PERRL/EOMI, TMs Normal, Normal ENT Inspection, Pharynx Normal Neck: Full Range of Motion, Normal Inspection, Non Tender, Supple Respiratory: Chest Non Tender, Lungs Clear, Normal Breath Sounds, No Accessory Muscle Use, No Respiratory Distress Cardiovascular: Regular Rate, Rhythm, No Edema, No Gallop, No JVD Gastrointestinal: Normal Bowel Sounds, No Organomegaly Back: Normal Inspection, No CVA Tenderness Extremity: Normal Capillary Refill, Normal Range of Motion, Non Tender, Other (Olecranon bursitis left elbow. Normal active range of motion. No erythema or warmth. Mild ecchymosis. Ulcer right plantar foot. No surrounding redness or swelling. Tenderness to palpate.) Neurologic/Psychiatric: Alert, Oriented x3, No Motor/Sensory Deficits, Normal Mood/Affect, sprayer hand II-XII Norm as Tested Skin: Warm/Dry Focused Exam Lactate Level 05/08/23 17:22: Lactic Acid Level 1.10 Lactic Acid Level Laboratory Tests Test 05/08/23 17:22 Lactic Acid Level 1.10 MMOL/L (0.50-2.00) Progress/Results/Core Measures Suspected Sepsis SIRS Temperature: Pulse: Respiratory Rate: Laboratory Tests 05/08/23 16:41: White Blood Count 19.8H Blood Pressure / Mean: 05/08/23 17:22: Lactic Acid Level 1.10 Laboratory Tests 05/08/23 16:41: Creatinine 1.33H, Platelet Count 332, Total Bilirubin 0.4 Results/Orders Lab Results Laboratory Tests Test 05/08/23 16:19 05/08/23 16:22 05/08/23 16:41 05/08/23 17:22 Range/Units Glucometer 146 H 70-110 MG/DL Influenza Type A (RT-PCR) Not Detected Not Detecte Influenza Type B (RT-PCR) Not Detected Not Detecte SARS-CoV-2 RNA (RT-PCR) Not Detected Not Detecte White Blood Count 19.8 H 4.3-11.0 10^3/uL Red Blood Count 4.34 4.30-5.52 10^6/uL Hemoglobin 12.5 L 13.3-17.7 g/dL Hematocrit 38 L 40-54 % Mean Corpuscular Volume 88 80-99 fL Mean Corpuscular Hemoglobin 29 25-34 pg Mean Corpuscular Hemoglobin Concent 33 32-36 g/dL Red Cell Distribution Width 12.6 10.0-14.5 % Platelet Count 332 130-400 10^3/uL Mean Platelet Volume 10.0 9.0-12.2 fL Immature Granulocyte % (Auto) 1 % Neutrophils (%) (Auto) 88 H 42-75 % Lymphocytes (%) (Auto) 6 L 12-44 % Monocytes (%) (Auto) 5 0-12 % Eosinophils (%) (Auto) 1 0-10 % Basophils (%) (Auto) 1 0-10 % Neutrophils # (Auto) 17.5 H 1.8-7.8 10^3/uL Lymphocytes # (Auto) 1.1 1.0-4.0 10^3/uL Monocytes # (Auto) 0.9 0.0-1.0 10^3/uL Eosinophils # (Auto) 0.2 0.0-0.3 10^3/uL Basophils # (Auto) 0.1 0.0-0.1 10^3/uL Immature Granulocyte # (Auto) 0.1 0.0-0.1 10^3/uL Neutrophils % (Manual) 87 % Lymphocytes % (Manual) 7 % Monocytes % (Manual) 3 % Eosinophils % (Manual) 2 % Basophils % (Manual) 1 % Blood Morphology Comment NORMAL Sodium Level 134 L 135-145 MMOL/L Potassium Level 4.7 3.6-5.0 MMOL/L Chloride Level 106 98-107 MMOL/L Carbon Dioxide Level 18 L 21-32 MMOL/L Anion Gap 10 5-14 MMOL/L Blood Urea Nitrogen 22 H 7-18 MG/DL Creatinine 1.33 H 0.60-1.30 MG/DL Estimat Glomerular Filtration Rate 62 BUN/Creatinine Ratio 17 Glucose Level 140 H 70-105 MG/DL Calcium Level 8.5 8.5-10.1 MG/DL Corrected Calcium 9.3 8.5-10.1 MG/DL Magnesium Level 1.7 1.6-2.4 MG/DL Total Bilirubin 0.4 0.1-1.0 MG/DL Aspartate Amino Transf (AST/SGOT) 14 5-34 U/L Alanine Aminotransferase (ALT/SGPT) 11 0-55 U/L Alkaline Phosphatase 87 40-136 U/L Total Creatine Kinase 119 30-200 U/L C-Reactive Protein High Sensitivity 1.68 H 0.00-0.50 MG/DL Total Protein 6.9 6.4-8.2 GM/DL Albumin 3.0 L 3.2-4.5 GM/DL Lipase 49 8-78 U/L Lactic Acid Level 1.10 0.50-2.00 MMOL/L Test 05/08/23 18:10 Range/Units Urine Color YELLOW Urine Clarity SL CLOUDY Urine pH 6.0 5-9 Urine Specific Coy >=1.030 1.016-1.022 Urine Protein 2+ H NEGATIVE Urine Glucose (UA) TRACE H NEGATIVE Urine Ketones NEGATIVE NEGATIVE Urine Nitrite NEGATIVE NEGATIVE Urine Bilirubin NEGATIVE NEGATIVE Urine Urobilinogen 0.2 < = 1.0 MG/DL Urine Leukocyte Esterase NEGATIVE NEGATIVE Urine RBC (Auto) 1+ H NEGATIVE Urine RBC NONE /HPF Urine WBC RARE /HPF Urine Crystals NONE /LPF Urine Bacteria TRACE /HPF Urine Casts NONE /LPF Urine Mucus NEGATIVE /LPF Urine Culture Indicated NO Urine Opiates Screen NEGATIVE NEGATIVE Urine Oxycodone Screen NEGATIVE NEGATIVE Urine Methadone Screen NEGATIVE NEGATIVE Urine Propoxyphene Screen NEGATIVE NEGATIVE Urine Barbiturates Screen NEGATIVE NEGATIVE Ur Tricyclic Antidepressants Screen NEGATIVE NEGATIVE Urine Phencyclidine Screen NEGATIVE NEGATIVE Urine Amphetamines Screen POSITIVE H NEGATIVE Urine Methamphetamines Screen POSITIVE H NEGATIVE Urine Benzodiazepines Screen NEGATIVE NEGATIVE Urine Cocaine Screen NEGATIVE NEGATIVE Urine Cannabinoids Screen NEGATIVE NEGATIVE Micro Results Microbiology 05/08/23 Blood Culture - Preliminary, Resulted No growth My Orders Orders - KOKO CHOI Cbc With Automated Diff (05/08/23 16:12) Comprehensive Metabolic Panel (05/08/23 16:12) Lipase (05/08/23 16:12) Creatine Kinase (05/08/23 16:12) Ua Culture If Indicated (05/08/23 16:12) Drug Screen Stat (Urine) (05/08/23 16:12) Ns Iv 1000 Ml (Sodium Chloride 0.9%) (05/08/23 16:12) Lorazepam Injection (Ativan Injection) (05/08/23 16:15) Accucheck Stat ONCE (05/08/23 16:12) Magnesium (05/08/23 16:12) Covid 19 Inhouse Test (05/08/23 16:12) Influenza A And B By Pcr (05/08/23 16:12) Manual Differential (05/08/23 16:41) Blood Culture (05/08/23 17:04) Lactic Acid Analyzer (05/08/23 17:04) Hs C Reactive Protein (05/08/23 17:04) Foot, Right, 3 View (05/08/23 17:04) Piperacillin Sodium/Tazobactam (Zosyn Vi (05/08/23 17:15) Vancomycin Injection (Vancomycin Injecti (05/08/23 17:15) Ns Iv 1000 Ml (Sodium Chloride 0.9%) (05/08/23 18:08) Medications Given in ED Vital Signs/I&O 05/08/23 05/08/23 16:04 19:52 Temp 37.4 Pulse 88 110 Resp 20 24 B/P (MAP) 182/91 (121) 169/101 Pulse Ox 99 99 O2 Delivery Room Air 05/09/23 00:00 Intake Total 2350 ml Balance 2350 ml Capillary Refill : Less Than 3 Seconds Departure Communication (PCP) Reviewed previous ER visits, H&P, lab testing. Type II diabetic. Not insulin- dependent. Patient reports shaking and not feeling well since waking up this afternoon. Patient with tremoring. Patient appears to be under the influence of substance. He is afebrile but tachycardic. Multiple scars to his upper extremity. Reports a chronic wound to his right foot with no increasing pain or redness or swelling to this area. Denies any drug use or alcohol use. States he has been working outside for the past few days and concern he may be dehydrated. Sepsis protocol was initiated due to the tachycardia and the wound. CBC, CMP, CPK, blood cultures lactic acid. CBC showed elevated white blood count 19.8. Patient had a sodium of 134. BUN of 22, creatinine 1.33. Acute kidney insufficiency. normal CPK liver enzymes. Patient received 2 L of fluid. Lactic acid normal. Slight elevated CRP 1.68. X-ray of the right foot negative for cortical bone destruction. chronic foot ulcer. Patient was given Zosyn and vancomycin due to the wound as a potential source of infection secondary to elevated white blood count. After reviewing patient's lab work he has a history of elevated white blood count since November 2018. Patient received a dose of Ativan for his anxiety and jitteriness. Initially refused urinalysis but did produce a urine which was negative for infection but positive for methamphetamine. Concern for methamphetamine component. White blood count may be elevated to the foot ulcer. Not overly concerning for osteomyelitis but does need to be evaluated. Patient denies of any thoracic or lumbar back pain at this time. He did mention he has had a history of back pain but no back pain today. Evaluated his thoracic and lumbar spine without any midline tenderness. Denies of any bowel or urine incontinence or saddle paresthesia. Denies weight loss, night sweats or fevers. Denies chest pain or shortness of breath. Denies chest pain short of breath or cough. Patient was feeling much better. Patient was eager to leave. Did not want any further testing. Tremoring did stop. Remained afebrile. He does not appear toxic but concern for elevated white blood count and this ulcer. 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 No significant surrounding redness or swelling. will discharge with Keflex and Bactrim secondary to the wound. Recommend podiatry outpatient follow-up for further evaluation. No evidence of rhabdomyolysis. Neuro exam appropriate COVID influenza was negative. Recommend outpatient follow-up PCP in 2 to 3 days for reevaluation. Podiatry outpatient follow-up of this wound. Discussed wound care. Impression Primary Impression: Diabetic foot ulcer Disposition: HOME, SELF-CARE Condition: Stable Departure-Patient Inst. Decision time for Depature: 18:31 Referrals: [facility] [place]) Primary Care Physician LV WELCH DPM Patient Instructions: Diabetic Foot Ulcer (DC) Add. Discharge Instructions: Recommend following up with podiatry for evaluation of foot ulcer. Keep the area clean. Take antibiotic as prescribed All discharge instructions reviewed with patient and/or family. Voiced understanding. Scripts Sulfamethoxazole/Trimethoprim (Bactrim Ds Tablet) 800 Mg-160 Mg Tablet 1 EACH PO BID for 7 Days, #14 TAB Prov: KOKO CHOI 05/08/23 Cephalexin (Cephalexin) 500 Mg Tablet 500 MG PO QID for 7 Days, #28 TAB Prov: KOKO CHOI 05/08/23 KOKO CHOI May 08, 2023 16:17
[2023-05-08 16:57] LABS: BASOPHILS # (AUTO) 0.1 10^3/uL (0.0-0.1); BASOPHILS % (AUTO) 1 % (0-10); EOSINOPHILS # (AUTO) 0.2 10^3/uL (0.0-0.3); EOSINOPHILS % (AUTO) 1 % (0-10); HEMATOCRIT 38 % (40-54); HEMOGLOBIN 12.5 g/dL (13.3-17.7); LYMPHOCYTES # (AUTO) 1.1 10^3/uL (1.0-4.0); LYMPHOCYTES % (AUTO) 6 % (12-44); MEAN CORPUSCULAR HEMOGLOBIN 29 pg (25-34); MEAN CORPUSCULAR HGB CONC 33 g/dL (32-36); MEAN CORPUSCULAR VOLUME 88 fL (80-99); MONOCYTES # (AUTO) 0.9 10^3/uL (0.0-1.0); MONOCYTES % (AUTO) 5 % (0-12); NEUTROPHILS # (AUTO) 17.5 10^3/uL (1.8-7.8); NEUTROPHILS % (AUTO) 88 % (42-75); PLATELET COUNT 332 10^3/uL (130-400); WHITE BLOOD COUNT 19.8 10^3/uL (4.3-11.0)
[2023-05-08 17:03] LABS: POTASSIUM 4.7 MMOL/L (3.6-5.0)
[2023-05-08 17:04] LABS: CALCIUM 8.5 MG/DL (8.5-10.1)
[2023-05-08 17:05] LABS: TOTAL PROTEIN 6.9 GM/DL (6.4-8.2)
[2023-05-08 17:07] LABS: BILIRUBIN,TOTAL 0.4 MG/DL (0.1-1.0)
[2023-05-08 17:09] LABS: CREATININE SERUM 1.33 MG/DL (0.60-1.30)
[2023-05-08 17:12] LABS: MAGNESIUM 1.7 MG/DL (1.6-2.4)
[2023-05-08] MEDS ORDERED: VANCOMYCIN INJECTION 1,000 MG in NS (IVPB) 250 ML IV ONE (17:15)
[2023-05-08] MEDS ORDERED: PIPERACILLIN SODIUM/TAZOBACTAM 4.5 GM in NS (IVPB) 100 ML IV ONE (17:15)
--- NOTE | 2023-05-08 17:27 | Diagnostic Imaging Report ---
EXAMINATION: Right foot radiographs, 3 views. COMPARISON: October 25, 2022. HISTORY: 57-year-old male, right plantar foot pain. FINDINGS: There is degenerative type calcaneal enthesopathy. There are vascular calcifications. There is no identified acute fracture. The tarsometatarsal articulations are not particularly well evaluated. The additional joint spaces appear well-preserved. There is no cortical or aggressive bone destruction. IMPRESSION: 1. No identified acute bony abnormality of the right foot. 2. Degenerative type calcaneal enthesopathy. Dictated by: Dictated on workstation # [id number]
[2023-05-08 17:28] LABS: BASOPHILS % (MANUAL) 1 %; EOSINOPHILS % (MANUAL) 2 %; LYMPHOCYTES % (MANUAL) 7 %; MONOCYTES % (MANUAL) 3 %; NEUTROPHILS % (MANUAL) 87 %; RBC MORPH NORMAL
[2023-05-08 18:13] LABS: BILIRUBIN,URINE NEGATIVE (NEGATIVE); CLARITY,URINE SL CLOUDY; COLOR,URINE YELLOW; GLUCOSE, URINE (UA) TRACE (NEGATIVE); KETONES,URINE NEGATIVE (NEGATIVE); LEUKOCYTE ESTERASE ,URINE NEGATIVE (NEGATIVE); NITRITE,URINE NEGATIVE (NEGATIVE); PROTEIN,URINE 2+ (NEGATIVE)
[2023-05-08 18:20] LABS: BACTERIA,URINE TRACE /HPF; WBC,URINE RARE /HPF
[2023-05-08 18:26] LABS: AMPHETAMINE SCREEN, URINE POSITIVE (NEGATIVE); BARBITURATE SCREEN URINE NEGATIVE (NEGATIVE); BENZODIAZEPINES SCREEN URINE NEGATIVE (NEGATIVE); CANNABINOID SCREEN, URINE NEGATIVE (NEGATIVE); COCAINE SCREEN URINE NEGATIVE (NEGATIVE); METHADONE STAT NEGATIVE (NEGATIVE); OPIATE SCREEN URINE NEGATIVE (NEGATIVE); OXYCODONE STAT NEGATIVE (NEGATIVE); PROPOXYPHENE STAT NEGATIVE (NEGATIVE); TRICYCLIC ANTIDEPRESSANTS SCRE NEGATIVE (NEGATIVE)
[2023-05-08] MEDS ORDERED: SULF-221 PO (18:32)
[2023-05-08] MEDS ORDERED: CEPH500T PO (18:32)
[2023-05-08 19:52] VITALS: BP 169/101
== END 2023-05-08 19:54 | disposition home or self-care (01) ==
LOC: EDUNIT# 15:59 → ER 16:01
DX: E11.621 Type 2 diabetes mellitus with foot ulcer (principal); I10 Essential (primary) hypertension; D72.829 Elevated white blood cell count, unspecified; R79.82 Elevated C-reactive protein (CRP); F17.210 Nicotine dependence, cigarettes, uncomplicated; Z20.822 Contact with and (suspected) exposure to COVID-19
CPT/HCPCS: 36415; 73630; 80053; 80306; 81000; 82550; 82947; 83605; 83690; 83735; 85007; 85027; 86141; 87040; 87636